=== PATIENT | female | born 1995 | race Caucasian/White ===

== ENCOUNTER 2020-11-20 14:51 | Emergency (ER) | payer MEDICAID, SELFPAY ==
[2020-11-20 15:26] VITALS: BP 115/74; PULSE 88; RESP 18; TEMP 36.8; O2SAT 98; BMI 21.9
[2020-11-20 19:11] LABS: MANUAL DIFF FLAG NO
[2020-11-20 19:13] LABS: Basophils Percent Auto 0.4 % (0-2); Eosinophils Absolute Auto 0.1 X10*3/uL (0.0-0.4); Eosinophils Percent Auto 0.9 % (0-4); Hematocrit 35.4 % (37-47); Hemoglobin 11.2 g/dl (12.0-16.0); Imm Gran Abs Auto 0.03 X10*3/uL (0.00-0.03); Imm Gran Pct Auto 0.4 % (0.0-0.4); Lymphocytes Absolute Auto 1.9 X10*3/uL (1.2-4.9); Lymphocytes Percent Auto 23.8 % (20-40); Mean Corpuscular HGB Conc 31.6 g/dl (31.0-35.0); Mean Corpuscular Hemoglobin 25.1 pg (27.0-33.0); Mean Corpuscular Volume 79.2 fL (80-98); Monocytes Absolute Auto 0.6 X10*3/uL (0.1-1.2); Neutrophils Absolute Auto 5.4 X10*3/uL (2.0-8.3); Neutrophils Percent Auto 67.5 % (45-73); Platelet Count 255 X10*3/uL (160-400); Red Blood Count 4.47 X10*6/uL (4.20-5.50); Red Cell Distribution Width 14.6 % (11.0-16.0)
[2020-11-20 19:30] LABS: UPreg QC Valid YES; Urine Pregnancy NEGATIVE (NEGATIVE)
[2020-11-20 19:40] LABS: Anion Gap 13 (12-20); Blood Urea Nitrogen 15 mg/dL (9-16); Calcium 9.2 mg/dL (8.4-10.2); Carbon Dioxide 23 mmol/L (22-29); Chloride 108 mmol/L (96-108); Creatinine Clr Calc Pharmacy 90.3; Estimated Glomerular Filt Rate > 60; Glucose Random 104 mg/dL (60-115); Potassium 4.1 mmol/l (3.3-5.1); Sodium 140 mmol/L (135-145)
--- NOTE | 2020-11-20 21:01 | CT_ITS ---
EXAMINATION: CT HEAD WITHOUT CONTRAST CLINICAL INFORMATION: Severe headache. COMPARISON: None. TECHNIQUE: Contiguous axial imaging was performed from the skull base to vertex without intravenous administration of contrast. Coronal and sagittal reformatted images are performed at the CT scanner. [This CT examination was performed using dose optimization techniques as appropriate, variously including the following: *Automated exposure control *Adjustment of mA and/or kV according to patient size (this includes techniques or standardized protocols for targeted exams where dose is matched to indication/reason for exam; i.e. extremities or head) *Use of iterative reconstruction technique] DLP: 624 mGy-cm. FINDINGS: There is no evidence of acute intracranial hemorrhage or territorial infarction. No abnormal mass-effect or midline shift is seen. Isaac to white matter differentiation is well preserved. No extra-axial fluid collections are identified. The ventricles are normal in size. There is no abnormal attenuation within the brain parenchyma. There is no osseous abnormality. The mastoid air cells and visualized portions of the paranasal sinuses are well-aerated. CT/CT head/brain wo con IMPRESSION: No acute intracranial pathology.
--- NOTE | 2020-11-20 21:03 | ED.HA ---
HPI - Headache General Chief Complaint: Headache Stated Complaint: HEADACHE Time Seen by Provider: 11/20/20 20:46 Source: patient Mode of arrival: ambulatory Limitations: no limitations History of Present Illness HPI Narrative: 25 yo female here with MENEZES, nausea, photophobia x 8 days. H/o migraines but this feels more severe unrelieved with Excedrin and Tylenol at home. Patient initially told nursing that she had an abnormal CT in the past however, she tells me that she had an abnormal EEG outpatient and was recommended to f/u with neurology in 6 months but did not due to covid. MD elicited complaint: headache Related Data Previous Rx's Medication Instructions Recorded vezynfvzei-yllnwbnvhwcmj-vgty 1 cap PO Q8H PRN #10 cap 11/20/20 [Fioricet] Allergies Allergy/AdvReac Type Severity Reaction Status Date / Time loratadine [From CLARITIN] Allergy Intermediate RASH Verified 11/20/20 15:26 almond Allergy Unknown SWELLING Verified 11/20/20 15:26 corn [CORN] Allergy Unknown SWELLING Verified 11/20/20 15:26 hazelnut Allergy Unknown SWELLING Verified 11/20/20 15:26 latex [LATEX] Allergy Unknown RASH Verified 11/20/20 15:26 Review of Systems Review of Systems: Yes all other systems are reviewed and are negative Constitutional: Constitutional: Reports no additional constitutional complaints, Denies body ache(s), Denies chills, Denies fever(s), Reports headache(s) and Denies weakness Eyes: Eyes: Reports no additional eye complaints, Denies change in vision and Reports photophobia ENT: Reports system reviewed and no additional complaints, except as documented, Denies dizziness, Reports headache(s), Denies nasal congestion, Denies nasal discharge and Denies neck pain Cardiovascular: Cardiovascular: Reports no additional cardiovascular complaints, Denies chest pain, Denies leg edema and Denies dyspnea Respiratory: Respiratory: Reports no additional respiratory complaints, Denies cough and Denies dyspnea Gastrointestinal: Gastrointestinal: Reports no additional gastrointestinal complaints, Denies abdominal pain, Denies diarrhea, Reports nausea and Denies vomiting Genitourinary: Genitourinary: Reports no additional female genitourinary complaints and Denies urinary incontinence Musculoskeletal: Musculoskeletal: Reports no additional musculoskeletal complaints, Denies back pain, Denies arthralgias, Denies joint swelling, Denies neck pain, Denies numbness and Denies tingling Integumentary/Breasts: Skin/Breast: Reports system reviewed and no additional complaints, except as docu and Denies rash Neurologic: Reports system reviewed and no additional complaints, except as documented, Denies Abnormal speech present, Denies dizziness, Reports headache(s), Denies numbness, Denies tingling and Denies weakness PMFSH Past Medical History Attestation statement: The following information was validated with the patient. Source: old records reviewed and nursing notes reviewed Medical History Migraines Surgical History Hx of tonsillectomy Social History Social History Alcohol intake: unknown Smoking Status: Unknown if ever smoked Use of substances other than those prescribed or required for medical reasons: No Advance Directives: No Advance Directives Information Provided: No Physical Exam Vital Signs: Vital Signs: Last Vital Signs Temp 98.2 F 11/20/20 21:32 Pulse 57 11/20/20 21:35 Resp 16 11/20/20 21:35 BP 114/65 11/20/20 21:35 Pulse Ox 98 11/20/20 21:32 Body Mass Index 21.9 Const: General: cooperative, healthy appearing, comfortable and no acute distress Orientation/consciousness: patient oriented x3 Limitations: no limitations HENMT: Head: Yes normal to inspection Ears: hearing grossly normal bilaterally General nose exam: Normal external nose present Face and sinus: Yes normal facial exam Mouth: Normal oral and palatal mucosa present Throat: Yes posterior oropharynx normal Eyes: General: appearance normal, both eyes and all related structures Pupils: Equal, round and reactive pupils present Direct Ophthalmoscopy: photophobia Neck: Neck: Yes normal visual inspection Chest: Chest palpation & inspection: normal inspection of the chest Resp: Effort & Inspection: normal respiratory effort Auscultation: clear to auscultation bilaterally Cardio: Rate: regular rate Rhythm: regular rhythm Peripheral pulses: Peripheral pulses 2+ throughout GI: Inspection: Yes normal to inspection Palpation (GI): Soft to palpation and nontender Auscultation: normal bowel sounds Back/Spine/Pelvis: Thoracic/Lumbar Spine: thoracic and lumbar spine normal to inspection Skin: General skin exam: no rashes or lesions noted Neuro: General: patient oriented x3, no focal motor deficits and normal sensation to monofilament Cranial nerves: Yes CN's II-XII intact bilaterally, Yes Equal, round and reactive pupils present, Yes Bilaterally intact EOM present, Yes Nystagmus not present, Yes Normal facial strength present and Yes Midline tongue present Cognition (Neuro): normal cognition Speech: No Abnormal speech present Gait exam (Neuro): Normal gait present Motor exam (neuro): 5/5 motor strength present throughout Sensory Exam: Normal double simultaneous stimulation for sensation Extrem: General: Yes normal to inspection NIH Stroke Scale Internal: Initial- Upon Arrival Level of Consciousness: Alert Level of Consciousness Questions: Answers both questions correctly Level of Consciousness Commands: Performs both tasks correctly Best Gaze: Normal Visual: No visual loss Facial Palsy: Normal Motor Arm (Right): No drift Motor Arm (Left): No drift Motor Leg (Right): No drift Motor Leg (Left): No drift Limb Ataxia: Absent Sensory: Normal Best Language: No aphasia Dysarthia: Normal Extinction and Inattention: No abnormality Score: 0 Course Course Course Narrative: Intractable migraine x 8 days unrelieved with eugu-vso-wjwhwxp medications. Will need PRN, NSB and analgesia, CT head. 0020-CT head negative. Patient's pain is resolved after receiving IV medications here. Likely migraine. Reviewed worrisome signs and symptoms of when to return to the emergency department. Comfortable discharge home. MDM - Headache Medical Records Attestation: I reviewed the patient's medical records. Lab Data Attestation: I reviewed the patient's lab results. Result diagrams: 11/20/20 19:06 11/20/20 19:06 Labs: Lab Results 11/20/20 11/20/20 11/20/20 Range/Units 19:06 19:06 19:18 WBC 8.0 (4.8-10.8) X10*3/uL RBC 4.47 (4.20-5.50) X10*6/uL Hgb 11.2 L (12.0-16.0) g/dl Hct 35.4 L (37-47) % MCV 79.2 L (80-98) fL MCH 25.1 L (27.0-33.0) pg MCHC 31.6 (31.0-35.0) g/dl RDW 14.6 (11.0-16.0) % Plt Count 255 (160-400) X10*3/uL MPV 11.0 (9.4-12.3) fL Immature Gran % (Auto) 0.4 (0.0-0.4) % Neut % (Auto) 67.5 (45-73) % Lymph % (Auto) 23.8 (20-40) % [place] % (Auto) 7.0 (2-11) % Eos % (Auto) 0.9 (0-4) % Baso % (Auto) 0.4 (0-2) % Lymph # (Auto) 1.9 (1.2-4.9) X10*3/uL [place] # (Auto) 0.6 (0.1-1.2) X10*3/uL Eos # (Auto) 0.1 (0.0-0.4) X10*3/uL Baso # (Auto) 0.0 (0.0-0.2) X10*3/uL Abs Immat Gran (auto) 0.03 (0.00-0.03) X10*3/uL Absolute Neuts (auto) 5.4 (2.0-8.3) X10*3/uL Absolute Nucleated RBC 0.000 (0.0-0.012) X10*3/uL Nucleated RBC % (auto) 0.0 (0.0-0.2) /100WBC Sodium 140 (135-145) mmol/L Potassium 4.1 (3.3-5.1) mmol/l Chloride 108 (96-108) mmol/L Carbon Dioxide 23 (22-29) mmol/L Anion Gap 13 (12-20) BUN 15 (9-16) mg/dL Creatinine 0.74 (0.5-1.4) mg/dL Estim Creat Clear Calc 90.3 Estimated GFR > 60 Random Glucose 104 (60-115) mg/dL Calcium 9.2 (8.4-10.2) mg/dL TSH 3.92 (0.32-4.0) uIU/mL Urine Test NEGATIVE (NEGATIVE) Imaging Data CT scan - head: Attestation: I personally reviewed and interpreted this imaging study as follows: Radiologist's impression: CLINICAL INFORMATION: Severe headache. COMPARISON: None. TECHNIQUE: Contiguous axial imaging was performed from the skull base to vertex without intravenous administration of contrast. Coronal and sagittal reformatted images are performed at the CT scanner. [This CT examination was performed using dose optimization techniques as appropriate, variously including the following: *Automated exposure control *Adjustment of mA and/or kV according to patient size (this includes techniques or standardized protocols for targeted exams where dose is matched to indication/reason for exam; i.e. extremities or head) *Use of iterative reconstruction technique] DLP: 624 mGy-cm. FINDINGS: There is no evidence of acute intracranial hemorrhage or territorial infarction. No abnormal mass-effect or midline shift is seen. Isaac to white matter differentiation is well preserved. No extra-axial fluid collections are identified. The ventricles are normal in size. There is no abnormal attenuation within the brain parenchyma. There is no osseous abnormality. The mastoid air cells and visualized portions of the paranasal sinuses are well-aerated. CT/CT head/brain wo con IMPRESSION: No acute intracranial pathology. Discharge Plan Discharge Clinical Impression: Migraine Patient Disposition: Home, Self-Care Instructions: Migraine Headache (ED) Additional Instructions: We will call you if her swabs come back positive Get plenty of rest, avoid stress, drink plenty of fluids Prescriptions: New sfvmipfrdu-tnwkjcclysoxg-vxwt [Fioricet] 50-300-40 mg capsule 1 cap PO Q8H PRN (Reason: pain) Qty: 10 RF: 0 Referrals: [facility] [Primary Care Provider] - 2 days Interventions: ED Discharge Assessment Last Done: 11/20/20 23:36 Discharge Date/Time: 11/20/20 23:36
[2020-11-20] MEDS: diphenhydrAMINE HCL 50 MG/ML VIAL 25 MG IVPUSH (21:28)
[2020-11-20] MEDS: Metoclopramide HCl 10 MG/2 ML VIAL IVPUSH (21:29)
[2020-11-20] MEDS: 0.9 % Sodium Chloride 1,000 ML 999 ML IV (21:29)
[2020-11-20 21:32] VITALS: BP 115/74; PULSE 88; RESP 18; TEMP 36.8; O2SAT 98
--- NOTE | 2020-11-20 21:32 | PC.NURSE ---
Pt found laying in bed, reporting 8/10 pain to front right side of head, history of migraines, pt also reporting nausea and light sensitivity. IV established, IVF hung, pt medicated per MAR. Pt asking to be evaluated for a possible BV, yeast infection or UTI. Pt reports frequent episodes of BV, states she has had a vaginal discharge for 3 weeks, described as milky white with a strong odor. Pt also reports burning with urination, states that discharge zepeda. Primary nurse aware. Continue to monitor.
[2020-11-20 21:35] VITALS: BP 114/65; PULSE 57; RESP 16
--- NOTE | 2020-11-20 21:41 | PC.NURSE ---
Provider aware, plan for pt to self swab for BV and provide urine for STI. Pt unable to provide urine sample at this time. IVF infusing, per pt, she will try in a little while.
[2020-11-20 21:59] LABS: Thyroid Stimulating Hormone 3.92 uIU/mL (0.32-4.0)
[2020-11-21 08:52] LABS: BV Int Neg Control Negative (Negative); BV Int Pos Control Positive (Positive)
[2020-11-21 09:29] LABS: CT PCR NOT DETECTED (Not Detect.); NG PCR NOT DETECTED (Not Detect.)
== END 2020-11-20 23:36 | disposition home or self-care (01) ==
PROVIDERS: Nurse Practitioner Family; Emergency Provider Emergency Medicine Emergency Medical Services
DX: G43.909 Migraine, unspecified, not intractable, without status migrainosus (principal); Z11.3 Encounter for screening for infections with a predominantly sexual mode of transmission
CPT/HCPCS: 36415; 70450; 80048; 81025; 84443; 85025; 87480; 87491; 87510; 87591; 87660; 96361; 96374; 96375; 99284; J1200; J2765

== ENCOUNTER 2021-03-05 10:17 | Outpatient (REF) | payer MEDICAID, SELFPAY ==
--- NOTE | ~2021-03-05 | US_ITS ---
EXAMINATION: US THYROID CLINICAL INFORMATION: History of thyroid nodules. COMPARISON: Thyroid ultrasound 09/30/2014 and 08/11/2012 TECHNIQUE: Linear transducer abarca-scale and color Doppler examination with attention to the region of the thyroid. FINDINGS: SIZE: Measurements of the thyroid lobes and nodules are given in sagittal, anteroposterior and transverse dimensions respectively. Right Thyroid Lobe: 4.8 x 1.9 x 1.9 cm, volume 9.1 mL. Previously 4.2 x 1.8 x 1.3 cm, volume 5.1 mL. Parenchyma: The gland echotexture is heterogeneous. Thyroid vascularity is increased. Left Thyroid Lobe: 4.2 x 1.9 x 1.6 cm, volume 6.7 mL. Previously 4.1 x 1.7 x 1.5 cm, volume 5.5 mL. Parenchyma: The gland echotexture is heterogeneous. Thyroid vascularity is increased. Isthmus: 0.3 cm in maximum AP dimension. Previously 0.3 cm. No focal thyroid nodule is seen. NODES: No lymphadenopathy is seen in the tissue surrounding the thyroid gland. US/US thyroid IMPRESSION: Heterogenous thyroid gland with no visible or measurable nodules visualized. The gland has slightly increased in volume since the previous exam 09/30/2014. ACR TI-RADS RECOMMENDATION REFERENCE: Ultrasound-guided fine-needle aspiration, followup ultrasound, no further followup. * TR1 (0 point) and TR 2 (2 points): No FNA or followup. * TR3 (3 points): FNA if more than or equal to 2.5 cm in maximum dimension, followup ultrasound in 1, 3 and 5 years if 1.5 to 2.4 cm in maximum dimension. * TR4 (4-6 points): FNA if more than or equal to 1.5 cm in maximum dimension, followup ultrasound in 1, 2, 3 and 5 years if 1 to 1.4 cm in maximum dimension. * TR5 (more than or equal to 7 points): FNA if more than or equal to 1 cm in maximum dimension, followup ultrasound every year for 5 years if 0.5 to 0.9 cm in maximum dimension. * TR3, TR4 or TR5 nodules that are below the size threshold for followup receive no followup.
== END 2021-03-05 10:18 | disposition home or self-care (01) ==
LOC: HO.US 10:17
PROVIDERS: PCP Nurse Practitioner Family; Visit Provider Nurse Practitioner Family
DX: Z86.39 Personal history of other endocrine, nutritional and metabolic disease (principal)
CPT/HCPCS: 76536

== ENCOUNTER 2021-05-30 13:29 | Outpatient (REF) | payer MEDICAID, SELFPAY ==
--- NOTE | ~2021-05-30 | US_ITS ---
EXAMINATION: US SOFT TISSUE NECK CLINICAL INFORMATION: 26-year-old female with submental palpable nodule for approximately 3 weeks. COMPARISON: Thyroid ultrasound 03/05/2021. TECHNIQUE: Ultrasound of the soft tissue neck is targeted to the area of clinical concern corresponding to the midline submental region. Patient is able to point to the area of concern at time of imaging. Grayscale imaging and color Doppler are performed. FINDINGS: The palpable nodule corresponds to a submental node with normal kiley architecture and normal color flow. The node measures approximately 4 mm short axis and 8 mm long axis. There is no other cystic or solid mass. No skin thickening or edema tracking in soft tissue planes. The submental node is similar to thyroid ultrasound images from 03/05/2021. No interval enlargement. US/US soft tiss head and/or neck IMPRESSION: Benign-appearing submental node with normal kiley architecture and color flow measuring approximately 4 mm short axis by 8 mm long axis. Finding is similar to prior thyroid ultrasound exam images 03/05/2021.
== END 2021-05-30 13:30 | disposition home or self-care (01) ==
LOC: HO.US 13:29
PROVIDERS: Visit Provider Nurse Practitioner Family
DX: R59.0 Localized enlarged lymph nodes (principal)
CPT/HCPCS: 76536

== ENCOUNTER 2022-03-15 10:29 | Emergency (ER) | payer MEDICAID, SELFPAY ==
--- NOTE | ~2022-03-15 | XR_ITS ---
EXAMINATION: XR RIBS, LEFT CLINICAL INFORMATION: Fell 3 weeks ago with persistent pain on the left side. COMPARISON: 08/29/2017. TECHNIQUE: 3 views of the left ribs were obtained. FINDINGS: Lungs are clear. No consolidation, pneumothorax, or pleural effusion. The cardiomediastinal silhouette and pulmonary vasculature are normal. Osseous structures are unremarkable. Ribs are intact. No fractures are identified. XR/XR ribs LT min 3V w CXR1V IMPRESSION: Unremarkable examination.
[2022-03-15 10:42] VITALS: BP 106/64; PULSE 70; RESP 14; TEMP 36.6; O2SAT 100; BMI 22.1
[2022-03-15] MEDS: Cyclobenzaprine HCl 10 MG TABLET PO (11:36)
[2022-03-15] MEDS: NaPROXEN 500 MG TABLET PO (11:36)
--- NOTE | 2022-03-15 11:37 | ED_ITS ---
HPI - Fall General Chief Complaint: General Medical Stated Complaint: L side rib pain Time Seen by Provider: 03/15/22 11:10 Source: patient and family Mode of arrival: ambulatory Limitations: no limitations History of Present Illness MD complaint: fall Onset (ago): week(s) (3) Fall from: other (While she was on a boat/snorkeling) Fall witnessed: yes, by family and yes, by bystander Place fall occurred: other (Outdoors) Loss of consciousness: none Prolonged down time: no Symptoms prior to fall: none Context: tripped/slipped Location of injury: chest (left rib cage ) Severity: moderate Quality: aching and throbbing Associated symptoms (after fall): other (left rib cage lateral aspect ) Related Data Previous Rx's Medication Instructions Recorded gbvqnlmqau-pgabdiwevsaaa-paqiuidh 1 cap PO Q8H PRN #10 cap 11/20/20 50 mg-300 mg-40 mg capsule (Fioricet) cyclobenzaprine 10 mg tablet 10 mg PO Q8H PRN #14 tab 03/15/22 lidocaine HCl 4 % topical cream 1 appl TOPICAL BID PRN #120 g 03/15/22 (Aspercreme (lidocaine HCl)) naproxen 500 mg tablet 500 mg PO BID PRN #14 tab 03/15/22 Allergies Allergy/AdvReac Type Severity Reaction Status Date / Time loratadine [From CLARITIN] Allergy Intermediate RASH Verified 03/15/22 10:46 almond Allergy Unknown SWELLING Verified 03/15/22 10:46 corn [CORN] Allergy Unknown SWELLING Verified 03/15/22 10:46 hazelnut Allergy Unknown SWELLING Verified 03/15/22 10:46 latex [LATEX] Allergy Unknown RASH Verified 03/15/22 10:46 Review of Systems Review of Systems: Constitutional : No Weight loss, No Fever, No Chills, No Night Sweats, No Fatigue, No Malaise ENT/Mouth : No Hearing loss, No Ear Pain, No Nasal Congestion, No Sinus Pain, No Hoarseness, No sore throat, No Rhinorrhea, No Swallowing Difficulty Eyes: No Eye Pain, No Swelling, No Redness, No Foreign Body, No Discharge, No Vision Changes Cardiovascular : No Chest Pain, No SOB, No Dyspnea on Exertion, No Orthopnea, No Edema, No Palpitations Respiratory : No Cough, No Sputum, No Wheezing, No Smoke Exposure, No Dyspnea Gastrointestinal : No Nausea, No Vomiting, No Diarrhea, No Constipation, No abdominal Pain, No Hematochezia, No Melena Genitourinary : no irregular bleeding, No Dysuria, No Urinary Frequency, No Hematuria, No Urinary Incontinence, No Urgency, No Flank Pain, No Urinary Flow Changes, No Hesitancy Musculoskeletal : + left rib cage pain, No joint pain, No Myalgias, No Joint Swelling Skin : No Skin Lesions, No rash Neuro : No Weakness, No Numbness, No Paresthesias, No Loss of Consciousness, No Dizziness, No Headache Psych : No Anxiety/Panic, No Depression, No SI/HI/AH/VH, No Social Issues, Heme/Lymph: No Bruising, No Bleeding,No Lymphadenopathy Endocrine : No Polyuria, No Polydipsia, No Temperature Intolerance Yes all other systems are reviewed and are negative [facility] Past Medical History Attestation statement: The following information was validated with the patient. Medical History Migraines Surgical History Hx of tonsillectomy Social History Social History Alcohol intake: unknown Advance Directives: No Advance Directives Information Provided: No Physical Exam Vital Signs: Vital Signs: Last Vital Signs Temp 97.9 F 03/15/22 10:42 Pulse 70 03/15/22 10:42 Resp 14 03/15/22 10:42 BP 106/64 03/15/22 10:42 Pulse Ox 100 03/15/22 10:42 BMI result Body Mass Index 22.1 vital signs have been reviewed as normal and appeared to be correct. Blood pressure normal. Heart rate normal. Respiration rate normal. Temperature normal. Oxygen saturation normal. Appearance: Alert. Oriented X3. No acute distress. Head: Normal external exam. Normocephalic. Atraumatic. Eyes: PERRLA. EOMI. Conjunctiva and sclera normal. Eyelids normal. ENT: Pharynx normal. Uvula midline. Moist mucous membranes. Normal voice. No trismus noted. No drooling noted. No muffled voice noted. Neck: Normal inspection. Neck supple. FROM. No adenopathy. Thyroid Normal. No meningeal signs. CVS: Normal heart rate and rhythm. Heart sound normal. Pulses normal throughout. No murmurs/rales/gallops. Respiratory: No respiratory distress. Painless inspiration. Breath sounds normal. No wheezes/rales/rhonchi noted. Chest moderate tenderness palpation to the left lateral aspect of the rib cage. No ecchymosis/abrasions/lacerations or signs of trauma noted. No crepitus is noted. No signs of trauma noted. No accessory muscle usage noted or decreased air movement noted. No signs of trauma. Abdomen: Soft and nontender. Bowel sounds normal in all 4 quadrants. No distention noted. No organomegaly noted. No visible injury noted. Back: Full range of motion noted. Nontender. No signs of trauma. Patient neuro intact bilaterally and distally on all 4 extremities. Patient's reflexes intact bilaterally and distally on all 4 extremities. No rashes/lesion/induration/fluctuance or signs of infection noted. Skin: Skin warm and dry. Normal skin color. Normal skin turgor. No rashes/lesions/lacerations noted. Extremities:Extremities exhibit normal range of motion and nontender. Neuro: Oriented X 3. No motor deficit. No sensory deficit. Reflexes normal. Normal steady gait. No focal neuro deficits noted. CN's II-XII intact bilaterally? Vascular: + radial pulses/+ 2 distal pedal pulses/+2 dorsalis pedis b/l. Normal cap refill. No cyanosis noted to upper extremity nails and lower extremity toes nails. Course Course Course Narrative: 11:15am - 26-year-old female presenting to the ED with complaints of left lateral rib cage pain after she had a fall when she was snorkeling approximately 3 weeks with persistent pain to the left lateral ribcage worse with deep inspiration and palpation. Denies head injury loss of consciousness or being on any blood thinners. Denies any other symptoms related to this. Will obtain a rib cage x-ray and provide symptomatic treatment with naproxen muscle relaxer and re-evaluate. Reevaluation(s) Reevaluation #1: X-ray negative patient most likely muscle strain will DC home with muscle relaxant instructions to return if any new or worsening symptoms to follow up with primary care provider. Patient understands agrees with this plan. MDM - Fall Medical Records Attestation: I reviewed the patient's medical records. Imaging Data ribs left sided and PA chest: Attestation: I personally reviewed and interpreted this imaging study as follows: Radiologist's impression: FINDINGS: Lungs are clear. No consolidation, pneumothorax, or pleural effusion. The cardiomediastinal silhouette and pulmonary vasculature are normal. Osseous structures are unremarkable. Ribs are intact. No fractures are identified. XR/XR ribs LT min 3V w CXR1V IMPRESSION: Unremarkable examination. Discharge Plan Discharge Clinical Impression: Fall, Rib injury Patient Disposition: Home, Self-Care Instructions: Muscle Strain (ED) Prescriptions: New naproxen 500 mg tablet 500 mg PO BID PRN (Reason: pain) Qty: 14 0RF cyclobenzaprine 10 mg tablet 10 mg PO Q8H PRN (Reason: Muscle spasm) Qty: 14 0RF lidocaine HCl [Aspercreme (lidocaine HCl)] 4 % cream 1 appl topical BID PRN (Reason: pain) Qty: 120 0RF No Action hoskxvcool-pmeeemwgaddxc-whyk [Fioricet] 50-300-40 mg capsule 1 cap PO Q8H PRN (Reason: pain) Qty: 10 0RF Referrals: Roseline Hooker [Primary Care Provider] - 2 days Stand Alone Forms: Work/School Release Print Language: Persian
== END 2022-03-15 12:04 | disposition home or self-care (01) ==
PROVIDERS: Emergency Provider Emergency Medicine Emergency Medical Services; PCP Nurse Practitioner
DX: S29.9XXA Unspecified injury of thorax, initial encounter (principal); W17.89XA Other fall from one level to another, initial encounter; Y93.15 Activity, underwater diving and snorkeling; Y92.89 Other specified places as the place of occurrence of the external cause; Y99.9 Unspecified external cause status
CPT/HCPCS: 71101; 99283

== ENCOUNTER 2022-06-26 08:50 | Emergency (ER) | payer MEDICAID, SELFPAY ==
[2022-06-26 08:59] VITALS: BP 122/68; PULSE 77; RESP 18; TEMP 37.1; O2SAT 98; BMI 21.5
--- NOTE | 2022-06-26 09:51 | ED.EXTPRO ---
HPI - Extremity Problem General Chief complaint: Extremity Problem Stated complaint: L & R knee swollen, cant bend L Time Seen by Provider: 06/26/22 09:32 Source: patient Mode of arrival: ambulatory Limitations: no limitations History of Present Illness HPI Narrative: 27-year-old female with a past medical history of iron deficiency anemia presenting to the emergency department with pain and swelling of her left knee for the past 2 days. Patient reports that she also had pain and swelling of the right knee on Friday, which has since resolved. States she cannot bend her left knee because it feels like its going to crack , and states it feels numb and tingly . Patient does report she is able to ambulate with a limp . Has tried ice and Tylenol for pain with little relief. States nothing like this has ever happened before . Does work on her feet all day, however denies any recent changes in activity level. Denies any trauma or mechanism of injury to the knee, denies any prior knee injury. Denies any issue with any other joints, however states her fingers often get stuck on bilateral hands. Denies any fevers, nausea, vomiting, chest pain, shortness of breath, insect bites. Denies history of blood clots, history of gout, or recent travel. MD Complaint: joint swelling and joint pain Onset (ago): day(s) Pain Consistency: constant Location: left Quality: aching, dull and constant Radiation: none Exacerbating factors: range of motion, weight bearing, walking and palpation Associated symptoms: denies other symptoms Related Data Previous Rx's Medication Instructions Recorded koizqsywan-rqnvkhzgdhols-gpqfwwyw 1 cap PO Q8H PRN pain #10 caps 11/20/20 50 mg-300 mg-40 mg capsule (Fioricet) cyclobenzaprine 10 mg tablet 10 mg PO Q8H PRN Muscle spasm #14 03/15/22 tabs lidocaine HCl 4 % topical cream 1 appl topical BID PRN pain #120 03/15/22 (Aspercreme (lidocaine HCl)) grams naproxen 500 mg tablet 500 mg PO BID PRN pain #14 tabs 03/15/22 Allergies Allergy/AdvReac Type Severity Reaction Status Date / Time loratadine [From CLARITIN] Allergy Intermediate RASH Verified 03/15/22 10:46 almond Allergy Unknown SWELLING Verified 03/15/22 10:46 corn [CORN] Allergy Unknown SWELLING Verified 03/15/22 10:46 hazelnut Allergy Unknown SWELLING Verified 03/15/22 10:46 latex [LATEX] Allergy Unknown RASH Verified 03/15/22 10:46 Review of Systems Review of Systems: Constitutional: No Weight loss, No Fever, No Chills ENT/Mouth: No Ear Pain, No Nasal Congestion, No Sinus Pain, No Hoarseness, No sore throat, No Rhinorrhea, No Swallowing Difficulty Cardiovascular: No Chest Pain, No SOB Respiratory: No Cough, No Sputum, No Wheezing Gastrointestinal: No Nausea, No Vomiting, No Diarrhea, No Constipation, No Abdominal pain Genitourinary: No Dysuria, No Urinary Frequency, No Hematuria, No Urinary Incontinence/retention, No Urgency, No Flank Pain Musculoskeletal: + joint pain left knee, No Myalgias, + Joint Swelling left knee Skin: No Skin Lesions, No rash Neuro: No Weakness, No Numbness, No Paresthesias Yes all other systems are reviewed and are negative Constitutional: Constitutional: Reports as per [facility] Past Medical History Attestation statement: The following information was validated with the patient. Medical History Migraines Surgical History Hx of tonsillectomy Social History Social History Alcohol intake: unknown Advance Directives: No Advance Directives Information Provided: No Physical Exam Vital Signs: Vital Signs: Last Vital Signs Temp 98.7 F 06/26/22 08:59 Pulse 77 06/26/22 08:59 Resp 18 06/26/22 08:59 BP 122/68 06/26/22 08:59 Pulse Ox 98 06/26/22 08:59 O2 Del Method 06/26/22 08:59 BMI result Body Mass Index 21.5 Const: General: cooperative, healthy appearing and no acute distress Orientation/consciousness: patient oriented x3 Limitations: no limitations HEENT: Head: Yes normal to inspection and Yes atraumatic Ears: hearing grossly normal bilaterally General nose exam: Normal external nose present Face and sinus: Yes normal facial exam Eyes: General: appearance normal, both eyes and all related structures EOM: EOMs intact bilaterally Neck: Neck: Yes normal visual inspection and Yes no meningeal signs Resp: Effort & Inspection: normal respiratory effort and no respiratory distress Auscultation: clear to auscultation bilaterally Cardio: Rate: regular rate Heart sounds: S1 normal heart sound present and S2 normal heart sound present Skin: Rashes: no rashes Wounds: no wounds Neuro: General: patient oriented x3, tone normal and no meningeal signs Gait exam (Neuro): Normal gait present Extrem: Other: NV intact distally Right lower extremity: normal to inspection and full ROM Left lower extremity: knee Details: tenderness, swelling and abnormal ROM (mild decreased flexion 2/2 pain) Course Course Course Narrative: 10:43 patient eloped prior to XR's being taken MDM - Extremity (Nontraumatic) MDM Narrative Medical decision making narrative: 27-year-old female with a past medical history of iron deficiency anemia presenting to the emergency department with pain and swelling of her left knee for the past 2 days. On exam, vital signs stable, patient in no acute distress. Left knee mildly edematous, no erythema, ecchymosis, or warmth noted. Range of motion limited due to pain, diffusely tender to palpation. Patient is able to ambulate with antalgic gait. Right knee with no edema, ecchymosis, or warmth noted on exam, full range of motion noted, no tenderness to palpation. No calf pain or swelling. Bilateral XR of knees ordered. Suspicion for possible tendon/ligamentous injury. Low suspicion for septic joint and DVT at this time. Medical Records Attestation: I reviewed the patient's medical records. Lab Data Attestation: I reviewed the patient's lab results. Discharge Plan Discharge Clinical Impression: Knee pain, left Patient Disposition: Elopement Prescriptions: No Action wydnjqgchw-qcdlwmztqtocg-cwbx [Fioricet] 50-300-40 mg capsule 1 cap PO Q8H PRN (Reason: pain) Qty: 10 0RF naproxen 500 mg tablet 500 mg PO BID PRN (Reason: pain) Qty: 14 0RF cyclobenzaprine 10 mg tablet 10 mg PO Q8H PRN (Reason: Muscle spasm) Qty: 14 0RF lidocaine HCl [Aspercreme (lidocaine HCl)] 4 % cream 1 appl topical BID PRN (Reason: pain) Qty: 120 0RF
== END 2022-06-26 11:19 | disposition left against medical advice (07) ==
PROVIDERS: Emergency Provider Emergency Medicine; PCP Nurse Practitioner
DX: M25.562 Pain in left knee (principal); D64.9 Anemia, unspecified; Z79.899 Other long term (current) drug therapy
CPT/HCPCS: 99283

== ENCOUNTER 2022-08-03 12:05 | Emergency (ER) | payer MEDICAID, SELFPAY ==
[2022-08-03 12:19] VITALS: BP 122/67; PULSE 86; RESP 20; TEMP 36.4; O2SAT 100; BMI 21.9
[2022-08-03 13:05] LABS: MANUAL DIFF FLAG NO
[2022-08-03 13:06] LABS: Basophils Percent Auto 0.7 % (0-2); Eosinophils Absolute Auto 0.1 X10*3/uL (0.0-0.4); Eosinophils Percent Auto 1.9 % (0-4); Hematocrit 32.3 % (37.0-47.0); Hemoglobin 10.1 g/dl (12.0-16.0); Lymphocytes Absolute Auto 1.7 X10*3/uL (1.2-4.9); Lymphocytes Percent Auto 41.1 % (20-40); Mean Corpuscular HGB Conc 31.3 g/dl (31.0-35.0); Mean Corpuscular Volume 73.6 fL (80.0-98.0); Mean Platelet Volume 9.9 fL (9.4-12.3); Monocytes Absolute Auto 0.4 X10*3/uL (0.1-1.2); Monocytes Percent Auto 9.9 % (2-11); Neutrophils Percent Auto 46.4 % (45-73); Platelet Count 255 X10*3/uL (160-400); Red Blood Count 4.39 X10*6/uL (4.20-5.50); Red Cell Distribution Width 16.2 % (11.0-16.0); White Blood Count 4.2 X10*3/uL (4.8-10.8)
[2022-08-03 13:22] LABS: Alanine Aminotransferase 10 U/L (0-31); Albumin Level 4.7 g/dL (3.5-5.0); Alkaline Phosphatase 63 U/L (39-117); Anion Gap 14 (12-20); Aspartate Amino Transferase 19 U/L (5-31); Bilirubin Direct 0.2 mg/dL (0.0-0.5); Bilirubin Total 0.5 mg/dL (0.0-1.0); Blood Urea Nitrogen 17 mg/dL (9-16); C Reactive Protein 0.02 mg/dL (< or = 0.50); Calcium 9.4 mg/dL (8.4-10.2); Carbon Dioxide 24 mmol/L (22-29); Chloride 106 mmol/L (96-108); Creatinine Clr Calc Pharmacy 85.8; Estimated Glomerular Filt Rate > 60; Glucose Random 88 mg/dL (60-115); Lipase 8 U/L (8-78); Potassium 3.9 mmol/L (3.3-5.1); Sodium 140 mmol/L (135-145); Total Protein 7.8 g/dL (6.5-8.0)
[2022-08-03 13:42] LABS: Free T4 (Free Thyroxine) 1.23 ng/dL (0.71-1.85); TSH reflex Free T4 2.01 uIU/mL (0.32-4.0)
[2022-08-03 13:45] LABS: Erythrocyte Sedimentation Rate 14 MM/HR (0-20)
== END 2022-08-03 17:17 | disposition left against medical advice (07) ==
PROVIDERS: Emergency Provider Emergency Medicine
DX: R22.1 Localized swelling, mass and lump, neck (principal); R06.02 Shortness of breath
CPT/HCPCS: 36415; 80048; 80076; 83690; 84439; 84443; 85025; 85652; 86140; 99281; 99283

== ENCOUNTER 2023-08-29 11:20 | Outpatient (REF) | payer MEDICAID, SELFPAY ==
[2023-08-29 14:09] LABS: TSH reflex Free T4 4.58 uIU/mL (0.32-4.0)
[2023-08-29 14:39] LABS: Free T4 (Free Thyroxine) 0.94 ng/dL (0.71-1.85)
[2023-09-01 18:03] LABS: Thyroglobulin Antibodies >1000 IU/mL (< or = 1)
== END 2023-08-29 11:21 | disposition home or self-care (01) ==
LOC: HO.HHCL 11:20
PROVIDERS: Visit Provider Nurse Practitioner Primary Care
DX: E04.1 Nontoxic single thyroid nodule (principal)
CPT/HCPCS: 36415; 84439; 84443; 86800

== ENCOUNTER 2023-09-09 11:24 | Outpatient (REF) | payer MEDICAID, SELFPAY ==
--- NOTE | ~2023-09-09 | US_ITS ---
EXAMINATION: US THYROID CLINICAL INFORMATION: Nontoxic single thyroid nodule. COMPARISON: Ultrasound soft tissue neck 05/30/2021. Thyroid ultrasound 03/05/2021. TECHNIQUE: Linear transducer abarca-scale and color Doppler examination with attention to the region of the thyroid. FINDINGS: SIZE: Measurements of the thyroid lobes and nodules are given in sagittal, anteroposterior and transverse dimensions respectively. Right Thyroid Lobe: 4.5 x 2.3 x 2.2 cm, volume 11.9 mL. Previously 4.8 x 1.9 x 1.9 cm, volume 9.1 mL. Parenchyma: The gland echotexture is heterogeneous. Thyroid vascularity is increased. Left Thyroid Lobe: 4.3 x 2.3 x 1.8 cm, volume 9.3 mL. Previously 4.2 x 1.9 x 1.6 cm, volume 6.7 mL. Parenchyma: The gland echotexture is heterogeneous. Thyroid vascularity is increased. Isthmus: 0.4 cm in maximum AP dimension. Previously 0.3 cm. No focal thyroid nodule is seen. ADDITIONAL FINDINGS: There is a 1 x 0.3 x 0.8 cm solid hypoechoic lesion posterior to the mid right thyroid gland questionable for a parathyroid adenoma versus lymph node. NODES: There are multiple bilateral cervical lymph nodes. Larger lymph nodes are enlarged. Largest cervical lymph nodes are a right level 2 measuring 2 x 0.5 x 1.8 cm, right level 3 measuring 3 x 0.4 x 1 cm and right level 4 measuring 1.7 x 0.6 x 1 cm. Lymph nodes may be increased. US/US thyroid IMPRESSION: Enlarged heterogeneous hypervascular thyroid gland. Thyroid gland is slightly increased in size from 2020. No focal thyroid nodule. Multiple enlarged cervical lymph nodes. Question parathyroid adenoma versus lymph node posterior to the mid right lobe.
== END 2023-09-09 11:25 | disposition home or self-care (01) ==
LOC: HO.HMGCX 11:24
PROVIDERS: PCP Nurse Practitioner; Visit Provider Nurse Practitioner Primary Care
DX: E04.1 Nontoxic single thyroid nodule (principal); Z80.8 Family history of malignant neoplasm of other organs or systems
CPT/HCPCS: 76536

== ENCOUNTER 2023-11-07 10:59 | Outpatient (REF) | payer MEDICAID, SELFPAY ==
[2023-11-07 12:40] LABS: Parathyroid Hormone Intact 62.5 pg/mL (8.7-77.1)
[2023-11-07 12:45] LABS: Alanine Aminotransferase 16 U/L (0-31); Albumin Level 4.7 g/dL (3.5-5.0); Alkaline Phosphatase 58 U/L (39-117); Anion Gap 9 (12-20); Aspartate Amino Transferase 27 U/L (5-31); Bilirubin Total 0.3 mg/dL (0.0-1.0); Blood Urea Nitrogen 12 mg/dL (9-16); Calcium 9.4 mg/dL (8.4-10.2); Carbon Dioxide 27 mmol/L (22-29); Chloride 106 mmol/L (96-108); Estimated Glomerular Filt Rate > 60; Glucose Random 75 mg/dL (60-115); Potassium 3.7 mmol/L (3.3-5.1); Sodium 138 mmol/L (135-145); Total Protein 8.3 g/dL (6.5-8.0)
[2023-11-07 13:20] LABS: TSH reflex Free T4 > 100.00 uIU/mL (0.32-4.0)
[2023-11-07 14:31] LABS: Free T4 (Free Thyroxine) < 0.42 ng/dL (0.71-1.85)
== END 2023-11-07 11:00 | disposition home or self-care (01) ==
LOC: HO.HHCL 10:59
PROVIDERS: Nurse Practitioner; Visit Provider Internal Medicine
DX: E04.9 Nontoxic goiter, unspecified (principal); D35.1 Benign neoplasm of parathyroid gland
CPT/HCPCS: 36415; 80053; 82330; 83970; 84439; 84443

== ENCOUNTER 2023-12-09 09:50 | Outpatient (REF) | payer MEDICAID, SELFPAY ==
--- NOTE | ~2023-12-09 | FL_ITS ---
EX EXAMINATION: XR FLUOROSCOPY BARIUM SWALLOW CLINICAL INFORMATION: Dysphagia COMPARISON: None TECHNIQUE: Fluoroscopic air contrast upper GI examination was performed utilizing standard techniques with thin and thick barium and effervescent granules. Numerous spot images were obtained. FINDINGS: Lateral cine images of the oropharynx and hypopharynx demonstrate normal swallow mechanism with normal epiglottic inversion and soft palate elevation. There was trace laryngeal penetration with thick barium. This did not reach the true cords or subglottic region. No nasopharyngeal reflux present. Hypopharyngeal structures demonstrate no evidence of definitive mass or diverticulum. Hypopharynx mucosa appears slightly diffusely granular and irregular, which is most likely on the basis of prominent palatine and lingual tonsillar tissue. Recommend direct hypopharynx visualization. There was no significant cricopharyngeal achalasia. 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 This does not appear to be narrowing the UES to a significant degree. Otherwise, esophagus demonstrates normal caliber, contour, and mucosal pattern. No evidence of stricture, mass, or ulcerations identified. Esophageal peristalsis was normal. No evidence of hiatus hernia identified. No significant gastroesophageal reflux was seen during the course of the examination and on reflux views. Incidentally noted but incompletely evaluated or thickened rugal folds of the stomach, small hyperplastic polyps suspected in the fundus, and mild prominence of the areae gastricae. Findings suggest gastritis. FLUOROSCOPY TIME: 3.0 minutes Number of Spot Images: 3 Number of Cine: 6 DOSE AREA PRODUCT: 668.4 uGy-m2 (microgray-meter squared) FL/FL barium swallow IMPRESSION: 1. Trace laryngeal penetration with thick barium, without glottic or subglottic aspiration. 2. Only seen well on the true lateral projections, there is an incomplete ventral web in the region of the UES, not definitively causing significant caliber reduction of the esophageal inlet. 3. Incompletely evaluated stomach although findings suggesting gastritis. EGD may be of benefit in this patient, as well as input of a speech pathologist. 4. Mildly irregular appearance to the hypopharynx mucosa, most likely on the basis of palatine and lingual tonsillar hypertrophy. Recommend direct visualization. This procedure was performed by Warren Medley PA-C, and supervised by Dr. Kamara
== END 2023-12-09 09:51 | disposition home or self-care (01) ==
LOC: HO.XRAY 09:50
PROVIDERS: PCP Nurse Practitioner; Visit Provider Internal Medicine
DX: R13.19 Other dysphagia (principal)
CPT/HCPCS: 74220

== ENCOUNTER → 2023-12-09 09:51 | Outpatient (BNV) | payer MEDICAID, SELFPAY | PROVIDERS: PCP Nurse Practitioner; Visit Provider Radiology Diagnostic Radiology | DX: R13.10 Dysphagia, unspecified (principal) | CPT/HCPCS: 74221 ==

== ENCOUNTER 2023-12-12 15:35 | Outpatient (REF) | payer MEDICAID, SELFPAY ==
[2023-12-12 16:20] LABS: MANUAL DIFF FLAG NO
[2023-12-12 16:24] LABS: Basophils Absolute Auto 0.1 X10*3/uL (0.0-0.2); Basophils Percent Auto 0.8 % (0-2); Eosinophils Absolute Auto 0.1 X10*3/uL (0.0-0.4); Eosinophils Percent Auto 0.9 % (0-4); Hematocrit 32.2 % (37.0-47.0); Hemoglobin 10.2 g/dl (12.0-16.0); Imm Gran Abs Auto 0.02 X10*3/uL (0.00-0.03); Imm Gran Pct Auto 0.3 % (0.0-0.4); Lymphocytes Percent Auto 30.9 % (20-40); Mean Corpuscular HGB Conc 31.7 g/dl (31.0-35.0); Mean Corpuscular Hemoglobin 23.8 pg (27.0-33.0); Mean Corpuscular Volume 75.1 fL (80.0-98.0); Mean Platelet Volume 10.4 fL (9.4-12.3); Monocytes Absolute Auto 0.5 X10*3/uL (0.1-1.2); Monocytes Percent Auto 7.5 % (2-11); Neutrophils Absolute Auto 3.8 x10*3/uL (2.0-8.3); Neutrophils Percent Auto 59.6 % (45-73); Platelet Count 266 X10*3/uL (160-400); Red Blood Count 4.29 X10*6/uL (4.20-5.50); Red Cell Distribution Width 19.1 % (11.0-16.0); White Blood Count 6.4 X10*3/uL (4.8-10.8)
[2023-12-12 17:09] LABS: Iron 21 mcg/dL (30-160); Percent Iron Saturation 5 % (15-50); Total Iron Binding Capacity 410 mcg/dL (228-428); Unsaturated Iron Binding 389 ug/dL
[2023-12-12 17:27] LABS: Ferritin 7 ng/mL (10-122); TSH reflex Free T4 69.25 uIU/mL (0.32-4.0)
[2023-12-12 18:20] LABS: Free T4 (Free Thyroxine) 0.74 ng/dL (0.71-1.85)
[2023-12-16 03:34] LABS: HBS Num1 0.14 mIU/mL (0-7.99); HBc Num1 0.17 S/CO (0.00-0.79); HBsAGNum1 0.32 S/CO (0.00-0.99); HIV AB/AG Nonreactive (Nonreactive); HIV Num 1 0.07 S/CO (0.00-0.99); Hepatitis B Core Antibody Nonreactive (Nonreactive); Hepatitis B Surface Antigen Negative (Negative); ~HepC Num1 0.29 S/CO (0.00-0.79); ~Hepatitis B Surface Antibody NONREACTIVE (Nonreactive); ~Hepatitis C Antibody Nonreactive (Nonreactive)
== END 2023-12-12 15:36 | disposition home or self-care (01) ==
LOC: HO.HHCL 15:35
PROVIDERS: Visit Provider Nurse Practitioner
DX: E03.9 Hypothyroidism, unspecified (principal); D64.9 Anemia, unspecified; Z11.3 Encounter for screening for infections with a predominantly sexual mode of transmission
CPT/HCPCS: 36415; 82728; 83540; 84439; 84443; 85025; 86704; 86706; 86803; 87340; 87389

== ENCOUNTER 2023-12-31 14:54 | Outpatient (REF) | payer MEDICAID, SELFPAY | END 2023-12-31 14:55 | disposition home or self-care (01) | LOC: HO.HHCL 14:54 | PROVIDERS: Visit Provider Nurse Practitioner | DX: Z13.89 Encounter for screening for other disorder (principal) ==

== ENCOUNTER 2024-01-02 | Outpatient (REF) | payer MEDICAID, SELFPAY | END 2024-01-02 00:01 | disposition home or self-care (01) | LOC: HO.HHCL | PROVIDERS: Visit Provider Nurse Practitioner | DX: E03.9 Hypothyroidism, unspecified (principal) | CPT/HCPCS: 87338 ==

== ENCOUNTER 2024-01-21 10:12 | Outpatient (REF) | payer MEDICAID, SELFPAY | END 2024-01-21 10:13 | disposition home or self-care (01) | LOC: HO.XRAY 10:12 | PROVIDERS: Visit Provider Nurse Practitioner | DX: Z13.89 Encounter for screening for other disorder (principal) ==

== ENCOUNTER 2024-02-03 10:06 | Outpatient (REF) | payer MEDICAID, SELFPAY ==
[2024-02-03 14:15] LABS: TSH reflex Free T4 18.82 uIU/mL (0.32-4.0)
[2024-02-03 15:26] LABS: Free T4 (Free Thyroxine) 0.88 ng/dL (0.71-1.85)
== END 2024-02-03 10:07 | disposition home or self-care (01) ==
LOC: HO.HHCL 10:06
PROVIDERS: Visit Provider Nurse Practitioner
DX: E03.9 Hypothyroidism, unspecified (principal)
CPT/HCPCS: 36415; 84439; 84443

== ENCOUNTER 2024-03-10 13:20 | Outpatient (REF) | payer MEDICAID, SELFPAY ==
--- NOTE | ~2024-03-10 | FL_ITS ---
EXAMINATION: Modified Barium Swallow CLINICAL INFORMATION: Dysphagia COMPARISON: None TECHNIQUE: Modified barium swallow was performed under lateral fluoroscopy with patient in standing position. Barium mixed with solids and liquids of different consistencies was administered by the speech pathologist. Examination was recorded in the fluoroscopy suite. FINDINGS: No laryngeal penetration or aspiration was seen during this examination. FLUOROSCOPY TIME: 47 seconds Number of Spot Images: 1 DOSE AREA PRODUCT: 333 uGy-m2 (microgray-meter squared) FL/FL barium swallow modified IMPRESSION: No laryngeal penetration or aspiration was seen during this examination. Refer to the speech therapy report for further clarification This procedure was performed by Warren Medley PA-C, and supervised by Dr. Kamara
--- NOTE | 2024-03-18 15:45 | MHC.SL.IMP ---
Date of Plan of Treatment: 03/10/24 Onset of Symptoms/Illness: 09/24/23 Date Treatment Started: 03/10/24 Admitting Diagnosis: Pharyngeal dysphagia (R13.13) Primary Speech & Language Diagnosis: R13.10 Dysphagia Reason for Today's Visit: 99142 Modified Barium Swallow Study Pre-evaluation Dietary Consistencies: Regular Pre-evaluation Liquid Consistency: Thin Pre-evaluation Medication Administration: Whole with Liquid Medical History: Modified Barium Swallow Study Fluoroscopic Evaluation of Swallowing Function CPT Code 73719 Evaluation Year: 2023 Reason for Study: Pt reporting difficulty swallowing. Referring Physician: Chelsea Patel NP Evaluating Clinician: Lizy Rangel MA, CCC-TUBING TESTER Study Number: 1 Patient Name: Arturo Krishna Status: Outpatient, Ambulatory Age: 28 Gender: Female Medical History Iron deficiency anemia, migraines, tonsillectomy Current (pre-evaluation) Intake/Diet: Route: PO Diet Grade: Regular Liquid Consistencies: Thin Pre-Study Functional Oral Intake Scale (FOIS): 7- Total oral intake with no restrictions Patient Self-Perception Rating Forms: Roxanne Anastacio Dysphagia Inventory (MDADI): Global Score= (4), Total Score= (62), Mean= ([id number]) with a Multiple Mean of ([id number]) whereby 20 is low functioning and 100 is maximum functioning. Pain: None reported at time of study SUBJECTIVE: Patient is a 28 year old female with history including lymph adenopathy, hypothyroidism, and self-reporting history of tonsil removal. Patient was noted to have trace penetration on thick barium during her barium swallow exam on 12/09/23 with Radiology recommending TUBING TESTER further assess. She was also recommended an EGD due to concerns of gastritis. Patient reports onset of dysphagia dating back to this past . She says she experienced an allergic reaction and sensation of a scratchy throat, which lead her to having trouble swallowing food. She says that food feels stuck, her throat feels swollen, and she needs to swallow with great effort to get food down. She says this now happens daily, especially with certain foods, such as bread, hard candy, or anything that is chewy. She denies odynophagia. Oral Motor Exam Facial Symmetry: Symmetrical Mouth Occlusion: Normal Oral-Facial Teeth Characteristics: Intact/Normal Oral-Facial Lip Pucker Description: Normal Oral-Facial Smile (Lips) Description: Normal Oral-Facial Puff Cheeks Description: Normal Tongue Size: Normal Tongue Excursion Description: Normal Tongue Range of Movement Description: Normal Tongue Speed of Movement Description: Normal Tongue Strength of Movement (against opposing pressure): Normal Tongue Movement Characteristics: Normal/Absent Is patient able to manage secretions?: Yes Is patient able to produce volitional cough?: Yes Food and Liquid Trials: Oral Impairment: Lip Closure: 0=No labial escape Oral Impairment: Tongue Control During Bolus Hold: Did not test Oral Impairment: Bolus Preparation/Mastication: 0=Timely and efficient chewing and mashing Oral Impairment: Bolus Transport/Lingual Motion: 0=Brisk tongue motion Oral Impairment: Oral Residue: 1=Trace residue lining oral structures Oral Impairment:Initiation of Pharyngeal Swallow: 0=Bolus head at posterior angle of ramus (first hyoid excursion) Pharyngeal Impairment: Soft Palate Elevation: 0=No bolus between soft palate (SP)/pharyngeal wall (PW) Pharyngeal Impairment: Laryngeal Elevation: 0=Complete superior movement of thyroid cartilage (see description) Pharyngeal Impairment: Anterior Hyoid Excursion: 0=Complete anterior movement Pharyngeal Impairment: Epiglottic Movement: 0=Complete inversion Pharyngeal Impairment: Laryngeal Vestibular Closure:: 0=Complete: no air/contrast in laryngeal vestibule Pharyngeal Impairment: Pharyngeal Stripping Wave: 0=Present: complete Pharyngeal Impairment: Pharyngeal Contraction: Did not test Pharyngeal Impairment: Pharyngoesophageal Segment Openin=Complete distension and complete duration: no obstruction of flow Pharyngeal Impairment: Tongue Base (TB) Retraction: 0=No contrast between tongue base and posterior pharyngeal wall Pharyngeal Impairment: Pharyngeal Residue: 1=Trace residue within or on pharyngeal structures Pharyngeal Impairment: Esophageal Clearance Upright Position: 0=Complete clearance: esophageal coating Impressions and Recommendations OBJECTIVE: Time-out: performed at 14:00 Evaluation Start: 13:30; Stop: 13:50 Patient Positioning: Standing Viewing Planes: LATERAL ONLY Contrast: MBSImP? Standardized Protocol using commercially prepared, standardized Barium viscosities, including: Varibar? THIN LIQUID (40% w/v, <15 cps) , 1/2 Shortbread Cookie (1 x1 x.25 ) MBSImP ID: [id number] MBSImP Results: Lip closure for intraoral bolus containment resulted in no labial escape. Tongue control during bolus hold could not be assessed due to logistical reasons not related to physiologic impairment. Bolus preparation and mastication resulted in timely and efficient chewing and mashing. Bolus transport/lingual motion was with brisk tongue motion. Oral residue was a trace, lining oral structures. Initiation of the pharyngeal swallow occurred as the bolus head reached the posterior angle of the mandibular ramus. Soft palate elevation resulted in no bolus between the soft palate and the pharyngeal wall. Laryngeal elevation demonstrated complete superior movement of the thyroid cartilage with complete approximation of the arytenoids to the epiglottic petiole. Anterior hyoid excursion demonstrated complete anterior movement. Epiglottic movement resulted in complete inversion. Laryngeal vestibular closure was complete, as indicated by no air or contrast within the laryngeal vestibule at the height of the swallow. Pharyngeal stripping wave was present and complete. Pharyngeal contraction could not be determined due to logistical reasons not related to physiologic impairment. Pharyngoesophageal segment opening was completely distended for complete duration with no obstruction of bolus flow. Tongue base retraction allowed no contrast between the retracted tongue base and the posterior pharyngeal wall. Pharyngeal residue was a trace within or on pharyngeal structures. Esophageal clearance in the upright position was complete, with only a coating of contrast, if any. Oral Impairment Score: 0 (absence of score, component 2) Pharyngeal Impairment Score: 0 (absence of score, component 13) Esophageal Impairment Score: 0 Laryngeal Penetration and Aspiration: Neither penetration nor aspiration was observed in today's study with Cookie, Thin. ASSESSMENT: This exam was conducted by the speech pathologist and the radiologist. Patient was standing for lateral view only. She was able to feed herself and trialed thin (via cup sip), puree, and regular solid (Arabella Doone cookie) textures. Note complete lip closure with no anterior loss of bolus. Mastication was timely and efficient with timely, brisk posterior lingual transport of bolus. Pharyngeal swallow trigger was timely. Post-swallow, there was trace oral residuals, considered to be within normal limits. No evidence of nasopharyngeal reflux. Complete laryngeal elevation with complete epiglottic invesion and complete laryngeal vestibular closure. No evidence of aspiration or penetration during this exam. Patient complained of feeling something stuck in her throat for an extended period of time after swallowing, though she demonstrated good pharyngeal clearance, with any trace residuals clearing on subsequent swallows. Patient swallowed whole barium pill tablet with sips of water. Tablet passed through the oral and pharyngeal cavities with no hang-up. No obstruction of flow through the pharyngoesophageal segment opening. Liquid Intake Recommendation: Thin Liquid Intake Strategies: Unrestricted Dietary Recommendations: Regular Medication Administration: Whole with Liquid Please contact the pharmacy regarding appropriate crushable or liquid drug formulations that are available whenever modified delivery is recommended. Supervision during eating and or drinking: None Needed Recommendation for Speech Therapy: NA:Typical Evaluation Text Comment: Intake Recommendations: Route: PO Diet Grade: Regular Liquid Consistencies: Thin Post-Study Functional Oral Intake Scale (FOIS): 7- Total oral intake with no restrictions Unremarkable exam. Oral and pharyngeal phases of the swallow are deemed to be within functional limits. Further ST intervention is not warranted based on observations made during this exam. Suggested Referrals: The patient might benefit from a referral to: Otolaryngology Indication for Referral: Patient with history of allergies, hypothyroidism, lymph adenopathy, hx tonsillectomy, complains of globus sensation though MBSS shows good oral and pharyngeal clearing. Patient also reports losing her voice and pain when singing. Patient may benefit from ENT referral to investigate concerns surrounding her voice, with TUBING TESTER referral if needed based on ENT assessment. The patient might benefit from a referral to: Gastroenterology Indication for Referral: 12/09/23 barium swallow x-ray with ?findings suggestive of gastritis.? Therapy Recommendations: Therapy will be discontinued Prognosis for Improvement: The prognosis for the patient to meet nutritional needs by mouth is excellent based on observations made during this exam. Clinician - Supplemental, Miscellaneous Communication: It is important to note MBSS objective studies are snapshots in time and Patient function might vary with factors such as time of day or concomitant medical conditions. For this reason, the final treatment plan for this patient should rest with their medical care team. Additional recommendations should be considered with the totality of the Patient in mind. Thank for the opportunity to participate in the care of this patient. If you have any questions about the content of this report, please contact the [facility] at [facility]. Education: Education regarding findings from today's study and plans for therapy were provided to Patient only through Verbal Instruction. Understanding was expressed by the Patient only. House Supervisor Clinician/Clinical Fellow: No Supervisory Statement: N/A Speech Language Pathologist: Lizy Rangel M.A., [facility]-TUBING TESTER
== END 2024-03-10 13:21 | disposition home or self-care (01) ==
LOC: HO.XRAY 13:20
PROVIDERS: PCP Nurse Practitioner; Visit Provider Nurse Practitioner
DX: R13.19 Other dysphagia (principal)
CPT/HCPCS: 74230; 92611

== ENCOUNTER → 2024-03-10 13:30 | Outpatient (BNV) | payer MEDICAID, SELFPAY | PROVIDERS: PCP Nurse Practitioner; Visit Provider Physician Assistant Surgical | DX: R13.10 Dysphagia, unspecified (principal) | CPT/HCPCS: 74230 ==

== ENCOUNTER 2024-06-11 14:35 | Outpatient (REF) | payer MEDICAID, SELFPAY ==
[2024-06-11 16:05] LABS: MANUAL DIFF FLAG NO
[2024-06-11 16:12] LABS: Basophils Absolute Auto 0.1 X10*3/uL (0.0-0.2); Basophils Percent Auto 1.3 % (0-2); Eosinophils Absolute Auto 0.1 X10*3/uL (0.0-0.4); Eosinophils Percent Auto 1.7 % (0-4); Hematocrit 30.6 % (37.0-47.0); Hemoglobin 9.4 g/dl (12.0-16.0); Imm Gran Abs Auto 0.01 X10*3/uL (0.00-0.03); Imm Gran Pct Auto 0.2 % (0.0-0.4); Lymphocytes Absolute Auto 1.7 X10*3/uL (1.2-4.9); Lymphocytes Percent Auto 36.6 % (20-40); Mean Corpuscular HGB Conc 30.7 g/dl (31.0-35.0); Mean Corpuscular Volume 71.7 fL (80.0-98.0); Monocytes Absolute Auto 0.4 X10*3/uL (0.1-1.2); Monocytes Percent Auto 8.4 % (2-11); Neutrophils Absolute Auto 2.5 x10*3/uL (2.0-8.3); Neutrophils Percent Auto 51.8 % (45-73); Platelet Count 242 X10*3/uL (160-400); Red Blood Count 4.27 X10*6/uL (4.20-5.50); Red Cell Distribution Width 17.2 % (11.0-16.0); White Blood Count 4.8 X10*3/uL (4.8-10.8)
[2024-06-11 16:51] LABS: TSH reflex Free T4 4.97 uIU/mL (0.32-4.0); Thyroid Stimulating Hormone 4.97 uIU/mL (0.32-4.0)
[2024-06-11 17:21] LABS: Free T4 (Free Thyroxine) 1.02 ng/dL (0.71-1.85)
[2024-06-12 13:43] LABS: H Pylori Breath Test Negative (Negative)
[2024-06-12 16:53] LABS: Triiodothyronine T3 Total 83 ng/dL (76-181)
== END 2024-06-11 14:36 | disposition home or self-care (01) ==
LOC: HO.HHCL 14:35
PROVIDERS: Visit Provider Nurse Practitioner
DX: E03.9 Hypothyroidism, unspecified (principal); D50.9 Iron deficiency anemia, unspecified; E03.8 Other specified hypothyroidism
CPT/HCPCS: 36415; 83013; 84439; 84443; 84480; 85025

== ENCOUNTER 2024-07-31 07:35 | Emergency (ER) | payer MEDICAID, SELFPAY ==
--- NOTE | ~2024-07-31 | XR_ITS ---
EXAMINATION: XR HAND, RIGHT CLINICAL INFORMATION: Pain COMPARISON: None available. TECHNIQUE: PA, lateral, and oblique views of the right hand. FINDINGS: Visualized portions of the distal radius and ulna demonstrate no fracture. Carpal rows are maintained. The carpal, metacarpal or phalangeal fracture. No appreciable degenerative changes. No localized soft tissue swelling. No radiopaque foreign body. XR/XR hand RT min 3V IMPRESSION: Unremarkable radiographs of the right hand. Electronically signed by: Lucho Burgos MD 07/31/2024 08:26 AM EDT
[2024-07-31 07:40] VITALS: BP 125/69; PULSE 79; RESP 18; TEMP 37; O2SAT 100; BMI 20.5
--- NOTE | 2024-07-31 08:50 | PC.NURSE ---
pt a&ox3, vss, + csm/pulses to extremity, awaiting provider, will continue to monitor
--- NOTE | 2024-07-31 09:12 | ED.EXTPRO ---
HPI - Extremity Problem General Chief complaint: Extremity Injury, Upper Stated complaint: Broken finger R hand Time Seen by Provider: 07/31/24 09:06 Source: patient and family Mode of arrival: ambulatory Limitations: no limitations History of Present Illness ED Provider: Aimee Duke APRN HPI Narrative: 29 yo female with history of hashimotos, anemia, right hand dominance who presents to the ER with complaints of right hand (5th digit) pain after a hyperflexion injury while opening up her car door this morning. Since then pain/swelling and difficulty with range of motion. No associated weakness, numbness, tingling, redness or warmth. Related Data Previous Rx's ?Medication ?Instructions ?Recorded [id number]-[id number]-[id number] 1 cap PO Q8H PRN pain #10 caps 11/20/20 50 mg-300 mg-40 mg capsule (Fioricet) cyclobenzaprine 10 mg tablet 10 mg PO Q8H PRN Muscle spasm #14 03/15/22 tabs lidocaine HCl 4 % topical cream 1 appl topical BID PRN pain #120 03/15/22 (Aspercreme (lidocaine HCl)) grams naproxen 500 mg tablet 500 mg PO BID PRN pain #14 tabs 03/15/22 acetaminophen 325 mg capsule 650 mg (2 x 325 mg) PO Q6H PRN 07/31/24 pain #30 caps ibuprofen 600 mg tablet 600 mg PO Q6H PRN pain #30 tabs 07/31/24 Allergies Allergy/AdvReac Type Severity Reaction Status Date / Time loratadine [From CLARITIN] Allergy Intermediate RASH Verified 07/31/24 07:42 almond Allergy Unknown SWELLING Verified 07/31/24 07:42 corn [CORN] Allergy Unknown SWELLING Verified 07/31/24 07:42 hazelnut Allergy Unknown SWELLING Verified 07/31/24 07:42 latex [LATEX] Allergy Unknown RASH Verified 07/31/24 07:42 Review of Systems Review of Systems: Yes all other systems are reviewed and are negative Constitutional: Constitutional: Reports no additional constitutional complaints, Denies body ache(s), Denies chills, Denies fever(s), Denies headache(s) and Denies weakness Eyes: Eyes: Reports no additional eye complaints and Denies change in vision ENT: Reports system reviewed and no additional complaints, except as documented, Denies dizziness, Denies headache(s), Denies nasal congestion, Denies nasal discharge and Denies neck pain Cardiovascular: Cardiovascular: Reports no additional cardiovascular complaints, Denies chest pain, Denies leg edema and Denies dyspnea Respiratory: Respiratory: Reports no additional respiratory complaints, Denies cough and Denies dyspnea Gastrointestinal: Gastrointestinal: Reports no additional gastrointestinal complaints, Denies abdominal pain, Denies diarrhea, Denies nausea and Denies vomiting Genitourinary: Genitourinary: Reports no additional female genitourinary complaints and Denies urinary incontinence Musculoskeletal: Musculoskeletal: Reports no additional musculoskeletal complaints, Denies back pain, Denies arthralgias, Denies joint swelling, Denies neck pain, Denies numbness and Denies tingling Integumentary/Breasts: Skin/Breast: Reports system reviewed and no additional complaints, except as docu and Denies rash Neurologic: Reports system reviewed and no additional complaints, except as documented, Denies Abnormal speech present, Denies dizziness, Denies headache(s), Denies numbness, Denies tingling and Denies weakness PMF Past Medical History Attestation statement: The following information was validated with the patient. Source: old records reviewed and nursing notes reviewed Medical History Migraines Surgical History Hx of tonsillectomy Social History Social History Alcohol intake: unknown Advance Directives: No Do you have a plan to hurt others: No Plan Physical Exam Vital Signs: Vital Signs: Last Vital Signs Temp 98.2 F 07/31/24 09:28 Pulse 73 07/31/24 09:28 Resp 18 07/31/24 09:28 BP 118/63 07/31/24 09:28 Pulse Ox 100 07/31/24 09:28 O2 Del Method Room Air 07/31/24 09:28 BMI result Body Mass Index 20.5 Const: General: cooperative, healthy appearing, comfortable and no acute distress Orientation/consciousness: patient oriented x3 Limitations: no limitations HEENT: Head: Yes normal to inspection Ears: hearing grossly normal bilaterally General nose exam: Normal external nose present Face and sinus: Yes normal facial exam Mouth: Normal oral and palatal mucosa present Throat: Yes posterior oropharynx normal Eyes: General: appearance normal, both eyes and all related structures Pupils: Equal, round and reactive pupils present Neck: Neck: Yes normal visual inspection Chest: Chest palpation & inspection: normal inspection of the chest Resp: Effort & Inspection: normal respiratory effort Auscultation: clear to auscultation bilaterally Cardio: Rate: regular rate Rhythm: regular rhythm Peripheral pulses: Peripheral pulses 2+ throughout GI: Inspection: Yes normal to inspection Palpation (GI): Soft to palpation and nontender Auscultation: normal bowel sounds Back/Spine/Pelvis: Thoracic/Lumbar Spine: thoracic and lumbar spine normal to inspection Skin: General skin exam: no rashes or lesions noted Neuro: General: patient oriented x3, no focal motor deficits and normal sensation to monofilament Cranial nerves: Yes Equal, round and reactive pupils present Cognition (Neuro): normal cognition Speech: No Abnormal speech present Gait exam (Neuro): Normal gait present Motor exam (neuro): 5/5 motor strength present throughout Extrem: Other: To the right hand (5th digit) there is pain/swelling and ecchymosis noted over the volar aspect at the base. Patient has the finger held in partial flexion and has pain/difficulty with ROM for flexion/extension of the digit. NO pain on palpation over the hand/other digits. Course Course Course Narrative: X-ray show no bony abnormality. Patient may have a ligamental sprain or injury. I do recommend that she use a finger splint, perform rice and follow up with Orthopedics for any continued symptoms. Reviewed worrisome signs and symptoms of when to return to the emergency room. Comfortable plan for discharge home. Medical Decision Making Medical Decision Making MDM Narrative: 29 yo female with history of hashimotos, anemia, right hand dominance who presents to the ER with complaints of right hand (5th digit) pain after a hyperflexion injury while opening up her car door this morning. Since then pain/swelling and difficulty with range of motion. No associated weakness, numbness, tingling, redness or warmth. To the right hand (5th digit) there is pain/swelling and ecchymosis noted over the volar aspect at the base. Patient has the finger held in partial flexion and has pain/difficulty with ROM for flexion/extension of the digit. NO pain on palpation over the hand/other digits. Will obtain x-rays Differential Diagnosis Differential Diagnoses: The differential diagnosis associated with the presentation includes Sprain, strain, fracture, dislocation, ligamental injury Low suspicion for complex fracture, vascular injury, tendon injury Admission/Observation Consideration of admission/observation: Escalation of care including admission/observation considered Low suspicion for complex fracture, vascular injury, tendon injury requiring advanced imaging, urgent ortho consultation Independent Interpretation I performed an independent interpretation of an: Plain X-Ray Interpretation: I independently reviewed the x-ray and agree with the radiology report Radiology Impression Discussion of test interpretation with radiology: I have reviewed the radiologist's reading. Radiologist Impression: [address] [address] XRay Report Signed Patient: Arturo Molina MR#: [id number] : 1995 Acct:[id number] Age/Sex: 29 / F ADM Date: 07/31/24 Loc: HO.ED Attending Dr: Ordering Physician: Generic ED Physician Date of Service: 07/31/24 Procedure(s): XR hand RT min 3V Accession Number(s): [id number] cc: Chelsea Patel; Generic ED Physician~ EXAMINATION: XR HAND, RIGHT CLINICAL INFORMATION: Pain COMPARISON: None available. TECHNIQUE: PA, lateral, and oblique views of the right hand. FINDINGS: Visualized portions of the distal radius and ulna demonstrate no fracture. Carpal rows are maintained. The carpal, metacarpal or phalangeal fracture. No appreciable degenerative changes. No localized soft tissue swelling. No radiopaque foreign body. XR/XR hand RT min 3V IMPRESSION: Unremarkable radiographs of the right hand. Electronically signed by: Lucho Burgos MD 07/31/2024 08:26 AM EDT Independent Historian Clinical information obtained from an independent historian. History obtained from or confirmed by: Friend Tests considered The following testing was considered but not selected: Low suspicion for complex fracture, vascular injury, tendon injury requiring advanced imaging Prescription Management I considered prescription management with: Pain Medication Discharge Plan Discharge Clinical Impression: Finger sprain Patient Disposition: Home, Self-Care Instructions: Finger Sprain (ED) Additional Instructions: Use the finger splint for comfort Apply ice to the affected area Perform gentle stretching of the finger If you continue to have difficulty with range of motion we would recommend that you follow-up outpatient with orthopedics. Please see their attached phone number. Take Motrin or Tylenol for any pain that you may have Prescriptions: New acetaminophen 325 mg capsule 650 mg PO Q6H PRN (Reason: pain) Qty: 30 0RF ibuprofen 600 mg tablet 600 mg PO Q6H PRN (Reason: pain) Qty: 30 0RF No Action urerxcryrv-zhfswcfcigsmm-xmwk [Fioricet] 50-300-40 mg capsule 1 cap PO Q8H PRN (Reason: pain) Qty: 10 0RF naproxen 500 mg tablet 500 mg PO BID PRN (Reason: pain) Qty: 14 0RF cyclobenzaprine 10 mg tablet 10 mg PO Q8H PRN (Reason: Muscle spasm) Qty: 14 0RF lidocaine HCl [Aspercreme (lidocaine HCl)] 4 % cream 1 appl topical BID PRN (Reason: pain) Qty: 120 0RF Referrals: [facility] [place] [facility] [Provider Group] - 1 week Stand Alone Forms: Work/School Release Interventions: ED Discharge Assessment Last Done: 07/31/24 09:28 Discharge Date/Time: 07/31/24 09:29 Print Language: Uzbek
--- NOTE | 2024-07-31 09:27 | PC.NURSE ---
splint applied by tech to rt 5th digit.
[2024-07-31 09:28] VITALS: BP 118/63; PULSE 73; RESP 18; TEMP 36.8; O2SAT 100
== END 2024-07-31 09:29 | disposition home or self-care (01) ==
PROVIDERS: Emergency Provider Internal Medicine; PCP Nurse Practitioner
DX: S63.616A Unspecified sprain of right little finger, initial encounter (principal); X50.9XXA Other and unspecified overexertion or strenuous movements or postures, initial encounter; Y93.89 Activity, other specified; Y92.810 Car as the place of occurrence of the external cause; Y99.9 Unspecified external cause status
CPT/HCPCS: 29130; 73130; 99282; 99283

== ENCOUNTER 2024-09-08 15:52 | Outpatient (REF) | payer MEDICAID, SELFPAY ==
--- NOTE | ~2024-09-08 | XR_ITS ---
EXAMINATION: XR RIBS, BILATERAL CLINICAL INFORMATION: Tender subcutaneous fixed nodules COMPARISON: February 2022. TECHNIQUE: 3 views of the bilateral ribs were obtained. FINDINGS: No evidence for airspace consolidation or pneumothorax. Hilar regions and pulmonary vascularity unremarkable. Pleural surfaces appear to be clear. No evidence for bony fractures. The cortical surfaces of the ribs appear to be intact. There is no appreciable erosive process identified. XR/XR ribs BI min 4V w CXR1V IMPRESSION: No evidence for acute bony fracture seen on this evaluation. No erosive lesions of bone identified. No airspace consolidations or effusions identified. Electronically signed by: Sage Francis MD 09/09/2024 10:40 AM ALEAH
== END 2024-09-08 15:53 | disposition home or self-care (01) ==
LOC: HO.HHCX 15:52
PROVIDERS: Visit Provider Nurse Practitioner Family
DX: R22.9 Localized swelling, mass and lump, unspecified (principal)
CPT/HCPCS: 71111

== ENCOUNTER 2024-11-16 08:41 | Outpatient (REF) | payer MEDICAID, SELFPAY ==
[2024-11-16 11:32] LABS: Hematocrit 29.7 % (37.0-47.0); Hemoglobin 9.1 g/dl (12.0-16.0); Mean Corpuscular HGB Conc 30.6 g/dl (31.0-35.0); Mean Corpuscular Hemoglobin 21.7 pg (27.0-33.0); Mean Corpuscular Volume 70.9 fL (80.0-98.0); Mean Platelet Volume 10.6 fL (9.4-12.3); Platelet Count 234 X10*3/uL (160-400); Red Blood Count 4.19 X10*6/uL (4.20-5.50); Red Cell Distribution Width 17.1 % (11.0-16.0); White Blood Count 4.4 X10*3/uL (4.8-10.8)
== END 2024-11-16 08:42 | disposition home or self-care (01) ==
LOC: HO.HHCL 08:41
PROVIDERS: Visit Provider Nurse Practitioner Family
DX: D50.8 Other iron deficiency anemias (principal)
CPT/HCPCS: 36415; 85027

== ENCOUNTER 2024-12-06 08:19 | Outpatient (REF) | payer MEDICAID, SELFPAY ==
--- OUTSIDE RECORDS SUMMARY | 2024-12-06 08:33 | XMS_ITS | Encounter Summary ---
Author Organization [employer] Address [address] [place] [address] Care Team Providers Care Metal Sash Setter Name Role Phone Chelsea Patel TANK TRUCK LOADER Primary Care Provider [phone] Reason for Visit * Reason Onset Date Comments New Med Request 12/22/2023 Encounter Details Date Type Department Care Team ([facility] st Contact Info) Description 12/22/2023 Telephone [facility] MEDICINE [address] [place] [address] Chelsea Patel NP [address] [place] [address] New Med Request Social History Tobacco Use Types Packs/Day Years Used Date Smoking Tobacco: Never Smokeless Tobacco: Never Depression Answer Date Recorded Patient Health Questionnaire-9 Score 0 12/12/2023 Patient Health Questionnaire-9 Score 0 12/12/2023 Last PHQ-9: Questionnaire Data Not on file 0 12/12/2023 Housing Stability Answer Date Recorded What is your housing situation today? I have wali jimenez 08/29/[address] you li ve. Do you have problems with any of the following? None of the above 08/29/2023 Food Insecurity Answer Date Recorded Within the past 12 months, y ou worried that your food would run out before you got money to buy more: Never True 08/29/2023 Within the past 12 months,th e food you bought just didn't last and you didn't have enough money to get more: Never True 12/2022 Transportation Answer Date Recorded In the past 12 months, has l ack of transportation kept you from medical appts, meetings, work or from getting things needed for daily living? No 08/29/2023 Utilities Answer Date Recorded In the past 12 months, has t he electric, gas, oil or water company threatened to shut off services in your home? No 08/29/2023 Depression Answer Date Recorded Patient Health Questionnaire-2 Score 0 12/12/2023 Comments Unknown Sex and Gender Information Value Date Recorded Sex Assigned at Female 08/26/2022 10:21 AM EDT Legal Sex Female 10:21 AM EDT Gender Identity Female 08/26/2022 10:21 AM EDT Sexual Orientation Lesbian or Jones 08/26/2022 10 :21 AM EDT documented as of this encounter Miscellaneous Notes * Telephone Encounter - Guillermo Harding RN - 12/23/2023 10:48 AM EST Medication sent to pharmacy, pt. Informed. Pt. Verbally agreed and understood. * Telephone Encounter - Lakesha Carlos - 12/22/2023 9:15 AM EST Tc from pt calling requesting script for Iron and Vitamin C, pt stated during last visit with PCP provider told her will send it. documented in this encounter Plan of Treatment Upcoming Encounters Date Type Department Care Team (Late st Contact Info) Description 12/10/2024 10:15 AM EST Office Visit [facility] MEDICINE [address] [place] [address] Chelsea Patel NP [address] [place] [address] documented as of this encounter Visit Diagnoses Not on filedocumented in this encounter Additional Health Concerns Assessment Noted Time PHQ-9 Depression Total Score: 0 12/12/19 24 2:12 PM EST documented as of this encounter Care Teams Metal Sash Setter Relationship Specialty Start Date End Date Chelsea Patel NP [address] [place] [address] PCP - General Family Medicine 08/29/23 documented as of this encounter
--- OUTSIDE RECORDS SUMMARY | 2024-12-06 08:33 | XMS_ITS | Encounter Summary ---
Author Organization [employer] Address [address] [place] [address] Care Team Providers Care Mold Designer Name Role Phone Chelsea Patel GROCERY CLERK CHECKING Primary Care Provider [phone] Reason for Visit * Reason Onset Date Comments Nurse Triage 02/03/2024 Encounter Details Date Type Department Care Team ([facility] st Contact Info) Description 02/03/2024 Telephone [facility] MEDICINE [address] [place] [address] Chelsea Patel NP [address] [place] [address] Nurse Triage Social History Tobacco Use Types Packs/Day Years Used Date Smoking Tobacco: Never Smokeless Tobacco: Never Depression Answer Date Recorded Patient Health Questionnaire-9 Score 0 12/12/2023 Patient Health Questionnaire-9 Score 0 12/12/2023 Last PHQ-9: Questionnaire Data Not on file 0 12/12/2023 Housing Stability Answer Date Recorded What is your housing situation today? I have wali jimenez 09/08/[address] you li ve. Do you have problems with any of the following? None of the above 09/08/2024 Food Insecurity Answer Date Recorded Within the past 12 months, y ou worried that your food would run out before you got money to buy more: Never True 09/08/2024 Within the past 12 months,th e food you bought just didn't last and you didn't have enough money to get more: Never True Transportation Answer Date Recorded In the past 12 months, has l ack of transportation kept you from medical appts, meetings, work or from getting things needed for daily living? No 09/08/2024 Utilities Answer Date Recorded In the past 12 months, has t he electric, gas, oil or water company threatened to shut off services in your home? No 09/08/2024 Depression Answer Date Recorded Patient Health Questionnaire-2 Score 0 12/12/2023 Internet Access Answer Date Recorded Internet Access Q1 Yes 09/08/2024 Internet Access Q2 Not on file 09/08/2024 Comments Unknown Sex and Gender Information Value Date Recorded Sex Assigned at Female 08/26/2022 10:21 AM EDT Legal Sex Female 10:21 AM EDT Gender Identity Female 08/26/2022 10:21 AM EDT Sexual Orientation Lesbian or Jones 08/26/2022 10 :21 AM EDT documented as of this encounter Miscellaneous Notes * Telephone Encounter - Ora Sadler RN - 02/03/2024 8:47 AM EDT Called pt. She states that 10 years ago pt. Had allergy testing and is highly allergic to mold and other allergens. 7 months ago pt. Started having swollen lymph nodes, feelings of sickness every dayand she noticed that she has bad black mold in her bathroom of her apartment. She contacted her landlord 15 days ago about the mold problem and he has not gotten back to her yet. Pt wakes up every day with swollen, puffy eyes, large lymph nodes and sore throat. Pt states she called the Board of health to come assess her apartment due to her landlord not getting back to her. Pt. Wants a new referral to Supply Chain Generalist for updated allergy testing. Pt wondering if PCP can order a test to be done to see if she has mold in her body. Appt. Made for pt. For 02/18/24 at 1030am with PCP but, she is requesting a call back from her PCP when PCP has a free moment . Pt. States that at first thought it was her Thyroid but it is not her Thyroid and she thinks it is mold. Protocol Used: Lymph Nodes - Swollen / eye swelling(Adult) Protocol-Based Disposition: See in Office or Video Visit [employer]- appt made for 02/18/24 at 1030am with PCP. Video visit offer not recorded Positive Triage Question: * Tender node in the neck and also has a sore throat with minimal/no runny nose or cough * All higher-acuity triage questions were negative * Telephone Encounter - Tim Stearnsjia - 02/03/2024 8:40 AM EDT Symptom: Sore Throat Outcome: Schedule an urgent appointment (within 4 hours) or talk to a nurse or provider soon Reason: Trouble drinking and eating The caller accepted this outcome Please contact at [phone] documented in this encounter Plan of Treatment Upcoming Encounters Date Type Department Care Team (Late st Contact Info) Description 12/10/2024 10:15 AM EST Office Visit [facility] MEDICINE [address] [place] [address] Chelsea Patel NP [address] [place] [address] documented as of this encounter Visit Diagnoses Not on filedocumented in this encounter Additional Health Concerns Assessment Noted Time PHQ-9 Depression Total Score: 0 12/12/19 24 2:12 PM EST documented as of this encounter Care Teams Mold Designer Relationship Specialty Start Date End Date Chelsea Patel NP [address] [place] [address] PCP - General Family Medicine 08/29/23 documented as of this encounter
--- OUTSIDE RECORDS SUMMARY | 2024-12-06 08:33 | XMS_ITS | Clinical Summary ---
Author Organization [facility] Address [address] [place] [phone] Phone Care Team Providers Care Key Account Manager Name Role Phone Unavailable Primary Care Provider Unavailabl e Immunizations Immunization Administration Dates Next Due DTaP 5 03/02/1998, 5,1993,11/26,1993 HPV, Quadrivalent 07/11/2008,08/27/2007 Hep B, ped/adol 07/26/1994,1993,1993 Hib (HbOC) 01/13/1995, 4,1993,07/26 IPV 01/13/1995, 4,1993,07/26 Influenza Split 06/10/2011 MMR 03/02/1998,05/26/1994 Meningococcal Conj (Menactra) MCV4P 01/23/2006 OPV 03/02/1998 Td (adult) (MBL), 2 Lf tetan us toxoid, PF, adsorbed 01/10/2005 Family History Relation Name Status Comments Brother Alive Brother: Alive and well Half-Brother Alive Half brother (M ): Alive and well, Alive and well Mother Alive Mother: Asthma, Migraines, Depression Sister Alive Sister: Alive a nd well Social History Tobacco Use Types Packs/Day Years Used Date Smoking Tobacco: Never Assessed Comments Unknown Sex and Gender Information Value Date Recorded Sex Assigned at Not on file Legal Sex Female 4:36 PM EDT Gender Identity Not on file Sexual Orientation Not on file Last Filed Vital Signs Vital Sign Reading Time Taken Comments Blood Pressure 102/66 06/10/2011 12:00 AM EDT Pulse - - Temperature - - Respiratory Rate - - Oxygen Saturation - - Inhaled Oxygen Concentration - - Weight 57.2 kg (126 lb) 06/10/2011 12:00 AM EDT Height 157 cm (5' 1.8 ) 06/10/2011 12:00 AM EDT Body Mass Index 23.2 06/10/2011 12:00 AM EDT Plan of Treatment Health Maintenance Due Date Last Done Comments DTaP,Tdap,and Td Vaccines (6 - Tdap) 01/11/2005 01/10/2005, 03/02/1998, 01/13/1995, Additional history exists Varicella Vaccines (1 of 2 - 13+ 2-dose series) 2006 Influenza Vaccines (#1) 2024 06/10/2011 COVID-19 Vaccine ( season) 2024 Hepatitis B Vaccines Completed 07/26/1994, 1993, 1993 HIB Vaccines Completed 01/13/1995, 10/29, 1993, Additional history exists IPV Vaccines Completed 03/02/1998, 12/26, 1993, Additional history exists MMR Vaccines Completed 03/02/1998, 05/26/1994 Meningococcal Vaccine Aged Out 01/23/2006 No jennifer macario eligible based on patient's age to complete this topic HPV Vaccines Completed 07/11/2008, 08/27/2007 Hepatitis A Vaccines Aged Out No long er eligible based on patient's age to complete this topic Men B Vaccine Aged Out No longer elig ible based on patient's age to complete this topic Pneumococcal Vaccine Aged Out No long er eligible based on patient's age to complete this topic
--- OUTSIDE RECORDS SUMMARY | 2024-12-06 08:33 | XMS_ITS | Encounter Summary ---
Author Organization [facility] Address [address] [place] [id number] Phone Care Team Providers Care National Van Owner Operator Name Role Phone Unavailable Primary Care Provider Unavailabl e Encounter Details Date Type Department Care Team (Late st Contact Info) Description 07/25/2011 Documentation EM Family Medicine [address] [place] [address] Family Medicine, Physician [address] [place], [place] [id number] Social History Tobacco Use Types Packs/Day Years Used Date Smoking Tobacco: Never Assessed Comments Unknown Sex and Gender Information Value Date Recorded Sex Assigned at Not on file Legal Sex Female 4:36 PM EDT Gender Identity Not on file Sexual Orientation Not on file documented as of this encounter Plan of Treatment Not on file documented as of this encounter Visit Diagnoses Not on filedocumented in this encounter
--- OUTSIDE RECORDS SUMMARY | 2024-12-06 08:33 | XMS_ITS | Encounter Summary ---
Author Organization [employer] Address [address] [facility] 7t [place] [address] Care Team Providers Care Presales Senior Specialist Name Role Phone Chelsea Patel SOFTWARE ENGINEER BACKEND Primary Care Provider [phone] Reason for Visit * Reason Onset Date Comments Medication Question 01/05/2024 Encounter Details Date Type Department Care Team ([facility] st Contact Info) Description 01/05/2024 Telephone [facility] [address] [place] [address] Chelsea Patel NP [address] [place] [address] Medication Question Social History Tobacco Use Types Packs/Day Years Used Date Smoking Tobacco: Never Smokeless Tobacco: Never Depression Answer Date Recorded Patient Health Questionnaire-9 Score 0 12/12/2023 Patient Health Questionnaire-9 Score 0 12/12/2023 Last PHQ-9: Questionnaire Data Not on file 0 12/12/2023 Housing Stability Answer Date Recorded What is your housing situation today? I have walimelissa jimenez 08/29/[address] you [...] t he electric, gas, oil or water [employer] threatened to shut off services in your [...] encounter Miscellaneous Notes * Telephone Encounter - Stephanie Watts - 01/05/2024 11:32 AM EDT Tc from pt requesting to speak directly with provider in regards to antibiotics recently given. Pt does not want to speak with a nurse. Please contact pt at [phone] * Telephone Encounter - Guillermo Harding RN - 01/05/2024 11:20 AM EDT T/C to pt. For below message, pt, states she is taking Levothyroxine and recently prescribe anti-biotics. Wants to ask PCP, if is it ok to take antibiotics in morning as she is taking thyroid medication at night. Pt. Advised that message will be sent to PCP for review. Please review and advise if needed. * Telephone Encounter - Gordy Kennedy - 01/05/2024 10:54 AM EDT Tc from patient calling to request a call back in regards to the antibiotics that was recently prescribed needs clarification if ok to take while currently on medications documented in this encounter Plan of Treatment Upcoming Encounters Date Type Department Care Team (Late st Contact Info) Description 12/10/2024 10:15 AM EST Office Visit [facility] [address] [place] [address] Chelsea Patel NP [address] [place] [address] documented as of this encounter Visit Diagnoses Not on filedocumented in this encounter Additional Health Concerns Assessment Noted Time PHQ-9 Depression Total Score: 0 12/12/19 24 2:12 PM EST documented as of this encounter Care Teams Presales Senior Specialist Relationship Specialty Start Date End Date Chelsea Patel NP [address] [place] [address] PCP - General Family Medicine 08/29/23 documented as of this encounter
--- OUTSIDE RECORDS SUMMARY | 2024-12-06 08:33 | XMS_ITS | Encounter Summary ---
Author Organization [employer] Address [address] [facility] 7t [place] [address] Care Team Providers Care Supervisor Winding Department Name Role Phone Chelsea Patel TRAP PULLER Primary Care Provider [phone] Reason for Visit * Reason Comments Med Refill Encounter Details Date Type Department Care Team ([facility] st Contact Info) Description 01/26/2024 Refill [facility] MED[facility]INE [address] [place] [address] Chelsea Patel NP [address] [place] [address] Hypothyroidism, unspecified type Social History Tobacco Use Types Packs/Day Years [...] AM EDT documented as of this encounter Plan of Treatment Upcoming Encounters Date Type Department Care Team (Late st Contact Info) Description 12/10/2024 10:15 AM EST Office Visit [facility]INE [address] [place] [address] Chelsea Patel NP [address] [place] [address] documented as of this encounter Visit Diagnoses Diagnosis Hypothyroidism, unspecified type documented in this encounter Additional Health Concerns Assessment Noted Time PHQ-9 Depression Total Score: 0 12/12/19 24 2:12 PM EST documented as of this encounter Care Teams Supervisor Winding Department Relationship Specialty Start Date End Date Chelsea Patel NP [address] [place] [address] PCP - General Family Medicine 08/29/23 documented as of this encounter
--- OUTSIDE RECORDS SUMMARY | 2024-12-06 08:33 | XMS_ITS | Encounter Summary ---
Author Organization [employer] Address [address] [facility] 7t [place] [address] Care Team Providers Care Sports Teacher Name Role Phone Chelsea Patel DIRECTOR STATE PHARMACY Primary Care Provider [phone] Reason for Visit * Reason Onset Date Comments Medication Question 01/27/2024 Encounter Details Date Type Department Care Team ([facility] st Contact Info) Description 01/27/2024 Telephone [facility] MEDICINE [address] [place] [address] Chelsea Patel NP [address] [place] [address] Medication Question Social History Tobacco Use Types [...] t he electric, gas, oil or water [employer] threatened to shut off services in your [...] Telephone Encounter - Guillermo Harding RN - 01/28/2024 2:32 PM EDT T/C to pt. For below message, pt. Verbally greed and understood. * Telephone Encounter - Chelsea Patel NP - 01/28/2024 2:06 PM EDT Please tell her that there is no need to stop her treatment for the biopsy. Will you also inform her that I will be placing a lab order for repeat thyroid testing. Please ask her to so the lab in themorning * Telephone Encounter - Guillermo Harding RN - 01/27/2024 9:41 AM EDT Please review and advise for below message, pt. Is on anti-biotics for H-pylori medication. * Telephone Encounter - Homer Moreno - 01/27/2024 9:13 AM EDT Tc from pt is requesting call back from nurses regarding antibiotics. Pt is having biopsy this Friday and wants to know if they should stop taking antibiotics before biopsy. Please contact pt at [phone]. documented in this encounter Plan of Treatment Upcoming Encounters Date Type Department Care Team (Late st Contact Info) Description 12/10/2024 10:15 AM EST Office Visit [facility] MEDICINE [address] [place] [address] Chelsea Patel NP [address] [place] [address] documented as of this encounter Visit Diagnoses Not on filedocumented in this encounter Additional Health Concerns Assessment Noted Time PHQ-9 Depression Total Score: 0 12/12/19 24 2:12 PM EST documented as of this encounter Care Teams Sports Teacher Relationship Specialty Start Date End Date Chelsea Patel NP [address] [place] [address] PCP - General Family Medicine 08/29/23 documented as of this encounter
--- OUTSIDE RECORDS SUMMARY | 2024-12-06 08:33 | XMS_ITS | Encounter Summary ---
Author Organization [facility] Address [address] [place] [address] Phone Care Team Providers Care Grinding Wheel Operator Name Role Phone Unavailable Primary Care Provider Unavailabl e Encounter Details Date Type Department Care Team (Late st Contact Info) Description 06/11/2011 Documentation EM Family Medicine [address] [place] [address] Family Medicine, Physician [address] [place], [place] [address] Social History Tobacco Use Types Packs/Day Years [...]
--- OUTSIDE RECORDS SUMMARY | 2024-12-06 08:33 | XMS_ITS | Encounter Summary ---
Author Organization [employer] Address [address] [facility] 7t [place] [address] Care Team Providers Care Health Center Manager Name Role Phone Chelsea Patel INDEPENDENT LIVING INSTRUCTOR Primary Care Provider [phone] Reason for Visit * Reason Onset Date Comments Medication Question 12/16/2023 Encounter Details Date Type Department Care Team ([facility] st Contact Info) Description 12/16/2023 Telephone [facility] MEDICINE [address] [place] [address] Chelsea Patel NP [address] [place] [address] Medication Question Social History Tobacco Use Types [...] t he electric, gas, oil or water [email or web address] threatened to shut off services in your [...] Encounter - Guillermo Harding RN - 12/23/2023 9:01 AM EST Noted, Thanks. * Telephone Encounter - Chelsea Patel NP - 12/22/2023 3:11 PM EST Yes, the medication instructions changed from morning to nightly administration. This was discussedwith the patient and she agreed with the change * Telephone Encounter - Guillermo Harding RN - 12/17/2023 12:18 PM EST Please review and advise for below message. * Telephone Encounter - Gordy Kennedy - 12/16/2023 9:24 AM EST Tc from patients pharmacy requesting a call back for clarification on a the medication levothyroxine (Tirosint) 50 MCG capsule the pharmacy stated the medication instruction has changed from taking it in the morning to taking it at night before bedtime documented in this encounter Plan of Treatment Upcoming Encounters Date Type Department Care Team (Late st Contact Info) Description 12/10/2024 10:15 AM EST Office Visit [facility] MEDICINE [address] [place] [address] Chelsea Patel NP [address] [place] [address] documented as of this encounter Visit Diagnoses Not on filedocumented in this encounter Additional Health Concerns Assessment Noted Time PHQ-9 Depression Total Score: 0 12/12/19 24 2:12 PM EST documented as of this encounter Care Teams Health Center Manager Relationship Specialty Start Date End Date Chelsea Patel NP [address] [place] [address] PCP - General Family Medicine 08/29/23 documented as of this encounter
--- OUTSIDE RECORDS SUMMARY | 2024-12-06 08:33 | XMS_ITS | Encounter Summary ---
Author Organization [employer] Address [address] [facility] 7t [place] [address] Care Team Providers Care Prenatal Teacher Name Role Phone Chelsea Patel NEEDLE SETTER Primary Care Provider [phone] Encounter Details Date Type Department Care Team (Late st Contact Info) Description 11/07/2023 Orders Only [facility] [address] [place], [place] [phone] Salomón Luong MD [address] [place] [address] Other specified hypothyroidism (Primary Dx) Social History Tobacco Use Types Packs/Day Years Used Date Smoking Tobacco: Never Smokeless Tobacco: Never Depression Answer Date Recorded Patient Health Questionnaire-9 Score 0 08/29/2023 Patient Health Questionnaire-9 Score 0 08/29/2023 Last PHQ-9: Questionnaire Data Not on file 1 10/29/2022 Housing Stability Answer Date Recorded What is [...] Date Recorded Patient Health Questionnaire-2 Score 0 08/29/2023 Comments Unknown Sex and Gender Information Value [...] Description 12/10/2024 10:15 AM EST Office Visit [facility] MEDICINE [address] [place], [place] [phone] Chelsea Patel NP [address] [place], [place] [phone] Scheduled Orders Name Type Priority Associated Diagnoses Orde r Schedule TSH W/Reflex to FT4 Lab Routine Other specified hypothyroidism Expected: 11/07/2023 (Approximate), Expires: 11/07/2024 documented as of this encounter Procedures Procedure Name Priority Date/Time Associated Diagnosis Comments CALCIUM, IONIZED Routine 11/07/2023 11:0 2 AM EST Other specified hypothyroidism documented in this encounter Results * Calcium, Ionized (11/07/2023 11:02 AM EST) Calcium, Ionized 5.0 4.7 - 5.5 mg/dL [facility] Comment:THIS TEST WAS PERFOR MED AT:[facility] [id number] [place] [id number] FRANKS MD 11/07/2023 11:0 2 AM EST 11/07/2023 11:46 AM EST us Generic External Data Provider LAB BLOOD ORDERAB LES Final Result [facility] [address] [place] [address] [phone] documented in this encounter Visit Diagnoses Diagnosis Other specified hypothyroidism- Primary documented in this encounter Additional Health Concerns Assessment Noted Time PHQ-9 Depression Total Score: 0 08/29/20 10:27 AM EDT documented as of this encounter Care Teams Prenatal Teacher Relationship Specialty Start Date End Date Chelsea Patel NP [address] [place] [address] PCP - General Family Medicine 08/29/23 documented as of this encounter
--- OUTSIDE RECORDS SUMMARY | 2024-12-06 08:33 | XMS_ITS | Encounter Summary ---
Author Organization [facility] Address [address] [place] [address] Phone Care Team Providers Care Rn Manager Name Role Phone Unavailable Primary Care Provider Unavailabl e Encounter Details Date Type Department Care Team (Late st Contact Info) Description 06/12/2017 Conversion Encounter [facility] - [address] [phone] Social History Tobacco Use Types Packs/Day Years [...]
--- OUTSIDE RECORDS SUMMARY | 2024-12-06 08:33 | XMS_ITS | Encounter Summary ---
Author Organization [employer] Address [address] [facility] 7t [place] [address] Care Team Providers Care Elementary Reading Specialist Name Role Phone Chelsea Patel NP Primary Care Provider [phone] Encounter Details Date Type Department Care Team (Late st Contact Info) Description 10/15/2023 Orders Only [facility] MEDICINE [address] [place] [address] Chelsea Patel NP [address] [place] [address] Parathyroid adenoma (Primary Dx) Social History Tobacco Use Types [...] t he electric, gas, oil or water [employer] threatened to shut off services in your [...] Description 12/10/2024 10:15 AM EST Office Visit [facility] MEDICINE [address] [place] [address] Chelsea Patel NP [address] [place] [address] Scheduled Orders Name Type Priority Associated Diagnoses Orde r Schedule PTH, Intact Without Calcium Lab Routine Parathyroid adenoma Expected: 10/15/2023, Expires: 10/15/2024 Calcium, Ionized Lab Routine Parathyroid adenoma Expected: 10/15/2023 (Approximate), Expires: 10/15/2024 documented as of this encounter Visit Diagnoses Diagnosis Parathyroid adenoma- Primary Benign neoplasm of parathyroid gland documented in this encounter Additional Health Concerns Assessment Noted Time PHQ-9 Depression Total Score: 0 08/29/20 10:27 AM EDT documented as of this encounter Care Teams Elementary Reading Specialist Relationship Specialty Start Date End Date Chelsea Patel NP [address] [place] [address] PCP - General Family Medicine 08/29/23 documented as of this encounter
--- OUTSIDE RECORDS SUMMARY | 2024-12-06 08:33 | XMS_ITS | Encounter Summary ---
Author Organization [facility] Address [address] [place] [phone] Phone Care Team Providers Care Director Camp Name Role Phone Unavailable Primary Care Provider Unavailabl e Encounter Details Date Type Department Care Team (Late st Contact Info) Description 06/11/2011 Documentation EM Family Medicine [address] [place] [address] Family Medicine, Physician [address] [place], [place] [phone] Social History Tobacco Use Types Packs/Day Years [...]
--- OUTSIDE RECORDS SUMMARY | 2024-12-06 08:33 | XMS_ITS | Encounter Summary ---
Author Organization [employer] Address [address] [facility] 7t [place] [address] Care Team Providers Care Active Directory Specialist Name Role Phone Chelsea Patel STAFFING MGR Primary Care Provider [phone] Reason for Visit * Reason Onset Date Comments Results 12/25/2023 Encounter Details Date Type Department Care Team ([facility] st Contact Info) Description 12/25/2023 Telephone [facility] [address] [place] [address] Chelsea Patel NP [address] [place] [address] Results Social History Tobacco Use Types Packs/Day Years [...] Telephone Encounter - Guillermo Harding RN - 12/25/2023 2:21 PM EST Please review below request and advise, result is in pt.'s chart. * Telephone Encounter - Tim Dobbins - 12/25/2023 8:33 AM EST TC from pt requesting call back regarding Results. Type of results: barium swallow Date when done: 12/10/23 Facility: [facility] documented in this encounter Plan of Treatment Upcoming Encounters Date Type Department Care Team (Late st Contact Info) Description 12/10/2024 10:15 AM EST Office Visit [facility] MED[facility] [address] [place] [address] Chelsea Patel NP [address] [place] [address] documented as of this encounter Visit Diagnoses Not on filedocumented in this encounter Additional Health Concerns Assessment Noted Time PHQ-9 Depression Total Score: 0 12/12/19 2:12 PM EST documented as of this encounter Care Teams Active Directory Specialist Relationship Specialty Start Date End Date Chelsea Patel NP [address] [place] [address] PCP - General Family Medicine 08/29/23 documented as of this encounter
--- OUTSIDE RECORDS SUMMARY | 2024-12-06 08:33 | XMS_ITS | Encounter Summary ---
Author Organization [facility] Address [address] [place] [address] Phone Care Team Providers Care Consulting Marine Engineer Name Role Phone Unavailable Primary Care Provider Unavailabl e Encounter Details Date Type Department Care Team (Late st Contact Info) Description 06/11/2011 Documentation EM Family Medicine [address] [place] [address] Family Medicine, Physician [address] [place], [place] [address] Social History Tobacco Use Types Packs/Day Years [...]
--- OUTSIDE RECORDS SUMMARY | 2024-12-06 08:33 | XMS_ITS | Encounter Summary ---
Author Organization [employer] Address [address] [facility] 7t [place] [address] Care Team Providers Care Electrotyper Apprentice Name Role Phone Chelsea Patel TELEPHONE CLERK TELEGRAPH OFFICE Primary Care Provider [phone] Reason for Visit * Reason Onset Date Comments Nurse Triage 11/19/2023 Encounter Details Date Type Department Care Team ([facility] st Contact Info) Description 11/19/2023 Telephone [facility] [address] [place] [address] Chelsea Patel NP [address] [place] [address] Nurse Triage Social History Tobacco Use Types [...] t he electric, gas, oil or water [employer] threatened to shut off services in your [...] Telephone Encounter - Guillermo Harding RN - 12/01/2023 1:25 PM EST FYI * Telephone Encounter - Jewell Hare RN - 12/01/2023 12:36 PM EST Triage call regarding Pt portal message below. Pt reports having muscle cramping and spasming whichhas increased recently. Pt reports last night when sleeping shoulder blade area began cramping and Pt woke up with stiff neck . Pt reports getting increased robert horses in backs of thighs and calves when bending over. Feet are cramping at times also. Levothyroxine 25mcg started 11/07/23 and Pt reports taking daily as prescribed. Pt reports this has been happening for the past 2 years and just recently increased. Pt does have apt with TELEPHONE CLERK TELEGRAPH OFFICE [employer] 12/12/23. Insurance is verified as active prior to booking. Pt is advised to seek assessment in ED if these symptoms continue to get worse before apt. Pt agrees with disposition and will go to ED if needed. Pt is advised that this triage will be sent to PCP also and Pt agreed with this plan. Protocol Used: Muscle Aches and Body Pain (Adult) Protocol-Based Disposition: See in Office or Video Visit within 2 Weeks Video visit not offered Positive Triage Question: * Muscle aches or body pains are a chronic symptom (recurrent or ongoing AND present > 4 weeks) * All higher-acuity triage questions were negative Care Advice Discussed: * Reassurance and Education - Mild Muscle Pain * Pain Medicines * Pain Medicines - Extra Notes and Warnings * Reasons To Call Back - Fever occurs - Pain lasts longer than 7 days - You become worse Hi Chelsea just reaching out about a concern I had brung up months ago but it never got attention and it???s only getting worse my muscles have been getting stuck and getting spasm all over the body anyway I move wrong a muscle lifts and it aches for days , I would like to see if blood work would beoption for this type of issues not sure if it has to do with my electrolytes or it???s deeper than that and has to do with the brain or thyroid , you would know more than I do , Would love to hear your thoughts or suggestions. * Telephone Encounter - Guillermo Harding RN - 11/19/2023 10:13 AM EST FYI T/C to pt. For below message , pt. Verbally agreed to come to [facility] for further evaluation. If having palpitations, she should come to the office for a SDC visit or at the [facility] to get an EKG and repeat Blood tests TSH and Electrolytes SABIHA. She should continue With the medication for now. * Telephone Encounter - Salomón Luong MD - 11/19/2023 9:55 AM EST If having palpitations, she should come to the office for a SDC visit or at the [facility] to get an EKG and repeat Blood tests TSH and Electrolytes SABIHA. She should continue With the medication for now. * Telephone Encounter - Angella Arthur RN - 11/19/2023 9:03 AM EST Call to Arturo Krishna reports since starting levothyroxine pt has had difficulty with staying asleep at night and having decreased appetite. Pt states sx onset was 4 days. Pt is taking 25mcg on an empty stomach. Per pt had palpitations first 2 days. None since. No nasuea, vomiting or diarrhea. Pt scheduled to see [facility] on 01/30/24, and barium swallow test on 12/10/23 at [facility]. Pt advised of disposition, prefers to have ordering provider Dr. Ag mcgarry and advise if same dose to be continue or if repeat lab work needed. Will send to ordering Provider Dr. Luong to further advise team nurses. Protocol Used: Insomnia (Adult) Protocol-Based Disposition: Home Care Override (Final) Disposition: Discuss with Provider and Callback by Nurse Today Override Reason: Other Override Notes: Recently started new med Positive Triage Question: * Difficulty falling to sleep or staying asleep * All higher-acuity triage questions were negative Care Advice Discussed: * Reassurance and Education - Dfficulty Sleeping * Tips for Good Sleep * Tips for Good Sleep - Your Bedroom * Reasons To Call Back - Insomnia symptoms persist over 2 weeks - You become worse * Telephone Encounter - Stephanie Watts - 11/19/2023 8:44 AM EST Symptom: Medication Reaction Outcome: Schedule an urgent appointment (within 1 hour) or talk to a nurse or provider soon Reason: pt states ever since taking levothyroxine (Tirosint) 25 MCG capsule, pt has experienced difficulty sleeping and eating The caller accepted this outcome Please contact pt at [phone] documented in this encounter Plan of Treatment Upcoming Encounters Date Type Department Care Team (Late st Contact Info) Description 12/10/2024 10:15 AM EST Office Visit [facility] [address] [place], [place] [phone] Chelsea Patel NP [address] [place], [place] [phone] documented as of this encounter Visit Diagnoses Not on filedocumented in this encounter Additional Health Concerns Assessment Noted Time PHQ-9 Depression Total Score: 0 08/29/20 23 10:27 AM EDT documented as of this encounter Care Teams Electrotyper Apprentice Relationship Specialty Start Date End Date Chelsea Patel NP [address] [place] [phone] PCP - General Family Medicine 08/29/23 documented as of this encounter
--- OUTSIDE RECORDS SUMMARY | 2024-12-06 08:33 | XMS_ITS | Encounter Summary ---
Author Organization [employer] Address [address] [facility] [address] [place] [address] Care Team Providers Care Auto Club Travel Counselor Name Role Phone Chelsea Patel GARDEN IMPLEMENT MECHANIC Primary Care Provider [phone] Reason for Visit * Reason Onset Date Comments Call Back Request 12/16/2023 Encounter Details Date Type Department Care Team ([facility] st Contact Info) Description 12/16/2023 Telephone [facility] [address] [place] [address] Chelsea Patel NP [address] [place] [address] Call Back Request Social History Tobacco Use Types Packs/Day [...] RN - 12/23/2023 9:01 AM EST Noted, Thanks * Telephone Encounter - Chelsea Patel NP - 12/22/2023 3:13 PM EST I spoken to the patient regarding this message. She is able to take 2 tabs until the current supplyis exhausted. Iron labs were also addressed during that call. Thank you * Telephone Encounter - Guillermo Harding RN - 12/17/2023 2:28 PM EST T/C to pt. For below message, pt. Has 25 mcg capsule at home, is it ok to take two capsule of 25 mcg to make total dose of 50 mcg? Also pt. States her iron is low. Is looking for advise. Please review and advise. Thanks. * Telephone Encounter - Stephanie Watts - 12/16/2023 2:30 PM EST Tc from pt calling to advise provider insurance will not cover levothyroxine (Tirosint) 50 MCG capsule due to 25 MCG being a 3 month supply and pt picked up prescription only a month ago. Please contact pt at [phone] documented in this encounter Plan of Treatment Upcoming Encounters Date Type Department Care Team (Late st Contact Info) Description 12/10/2024 10:15 AM EST Office Visit [facility] [address] [place] [address] Chelsea Patel NP [address] [place] [address] documented as of this encounter Visit Diagnoses Not on filedocumented in this encounter Additional Health Concerns Assessment Noted Time PHQ-9 Depression Total Score: 0 12/12/19 24 2:12 PM EST documented as of this encounter Care Teams Auto [employer] Travel Counselor Relationship Specialty Start Date End Date Chelsea Patel NP [address] [place] [address] PCP - General Family Medicine 08/29/23 documented as of this encounter
--- OUTSIDE RECORDS SUMMARY | 2024-12-06 08:34 | XMS_ITS | Encounter Summary ---
Author Organization [employer] Address [address] [facility] [address] [place] [address] Care Team Providers Care Lead Generation Representative Name Role Phone Chelsea Patel WASH AND GREASER Primary Care Provider [phone] Encounter Details Date Type Department Care Team (Late st Contact Info) Description 12/01/2024 Orders Only [facility] [address] [place] [address] Chelsea Patel NP [address] [place] [address] Social History Tobacco Use Types Packs/Day Years [...] Access Q2 Not on file 09/08/2024 Comments No Sex and Gender Information Value Date Recorded [...] Description 12/10/2024 10:15 AM EST Office Visit [facility] MEDICINE [address] [place] [address] Chelsea Patel NP [address] [place] [address] documented as of this encounter Visit Diagnoses Not on filedocumented in this encounter Additional Health Concerns Assessment Noted Time PHQ-9 Depression Total Score: 0 12/12/19 24 2:12 PM EST documented as of this encounter Care Teams Lead Generation Representative Relationship Specialty Start Date End Date Chelsea Patel NP [address] [place] [address] PCP - General Family Medicine 08/29/23 documented as of this encounter
--- OUTSIDE RECORDS SUMMARY | 2024-12-06 08:34 | XMS_ITS | Encounter Summary ---
Author Organization [employer] Address [address] [facility] [address] [place] [address] Care Team Providers Care Senior Information Security Architect Name Role Phone Chelsea Patel MACHINE WELDER Primary Care Provider [phone] Reason for Visit * Reason Onset Date Comments Med Refill 06/11/2024 Encounter Details Date Type Department Care Team ([facility] st Contact Info) Description 06/11/2024 Refill [facility] MEDICINE [address] [place] [address] Chelsea Patel NP [address] [place] [address] Anemia, unspecified type Social History Tobacco Use Types [...] Description 12/10/2024 10:15 AM EST Office Visit [facility] MEDICINE [address] [place] [id number] Chelsea Patel NP [address] [place] [address] documented as of this encounter Visit Diagnoses Diagnosis Anemia, unspecified type documented in this encounter Additional Health Concerns Assessment Noted Time PHQ-9 Depression Total Score: 0 12/12/19 24 2:12 PM EST documented as of this encounter Care Teams Senior Information Security Architect Relationship Specialty Start Date End Date Chelsea Patel NP [address] [place] [address] PCP - General Family Medicine 08/29/23 documented as of this encounter
--- OUTSIDE RECORDS SUMMARY | 2024-12-06 08:34 | XMS_ITS | Encounter Summary ---
Author Organization [employer] Address [address] [facility] [address] [place] [address] Care Team Providers Care Fitness Leader Name Role Phone Chelsea Patel FIXING CARPENTER Primary Care Provider [phone] Reason for Visit * Reason Onset Date Comments chartprep 11/30/2024 Encounter Details Date Type Department Care Team ([facility] st Contact Info) Description 11/30/2024 Telephone [facility] MEDICINE [address] [place] [address] Nicolle Chand MA chartprep Social History Tobacco Use Types Packs/Day Years [...] encounter Miscellaneous Notes * Telephone Encounter - Nicolle Chand MA - 11/30/2024 12:22 PM EST Chart Prep Labs: done Images: done Vaccines due: Covid Due and Flu Due Referrals: Completed Screenings: Not Applicable Overdue care gaps: Oral Health documented in this encounter Plan of Treatment Upcoming Encounters Date Type Department Care Team (Late st Contact Info) Description 12/10/2024 10:15 AM EST Office Visit [facility] MEDICINE [address] [place] [address] Chelsea Patel NP [address] [place] [address] documented as of this encounter Visit Diagnoses Not on filedocumented in this encounter Additional Health Concerns Assessment Noted Time PHQ-9 Depression Total Score: 0 12/12/19 24 2:12 PM EST documented as of this encounter Care Teams Fitness Leader Relationship Specialty Start Date End Date Chelsea Patel NP [address] [place] [address] PCP - General Family Medicine 08/29/23 documented as of this encounter
--- OUTSIDE RECORDS SUMMARY | 2024-12-06 08:34 | XMS_ITS | Clinical Summary ---
Author Organization [employer] Address [address] [facility] 7[address] [place] [address] Care Team Providers Care Interventional Tech Name Role Phone Chelsea Patel CHILDREN'S SERVICE WORKER Primary Care Provider [phone] Allergies No known active allergies Medications * This document contains information received from the source organization and may not represent a complete record from that organization. senna-docusate (Senokot S) 8.6-50 MG tablet Take 2 tablets by mouth at bed time. 06/07/20 22 Active hydrocortisone (Anusol-HC) 2.5 % rectal creamIndication s:Hemorrhoids, unspecified hemorrhoid type Insert into the rectum 2 times daily. 28 g 1 09/24/20 23 Active Additional Information Patient not taking.Reported on 09/08/2024 senna (Senokot) 8.6 MG tabletIndicatio ns:Constipation , unspecified constipation type Take 1 tablet (8.6 mg) by mouth at bedtime. 120 tablet 09/24/20 23 Active Additional Information Patient not taking.Reported on 09/08/2024 ferrous gluconate (Fergon) 324 (38 Fe) MG tabletIndicatio ns:Anemia, unspecified type Take 1 tablet by mouth every other morning with vitamin C 30 tablet 11 12/23/19 24 Active Ascorbic Acid (vitamin C) 250 MG tabletIndicatio ns:Anemia, unspecified type Take 1 tablet by mouth every other morning with iron tablet 30 tablet 11 12/23/19 24 Active esomeprazole (NexIUM) [address] capsuleIndicati ons:H. pylori infection Take 1 capsule (20 mg) by mouth 2 times daily for 14 days. Take with bismuth, tetracycline, and metronidazole. Do not open capsule. 28 capsule 01/05/20 24 Active ferrous sulfate 325 (65 Fe) MG tablet take 1 tablet by oral route every other day for iron deficiency anemia 06/07/20 22 Active Diclofenac Sodium 1 % gelIndications: Skin nodule Apply pea size amount to the rib area three times daily as needed 2 g 09/08/20 24 Active levothyroxine (Tirosint) 75 MCG capsuleIndicati ons:Hypothyroid ism, unspecified type Take 1 capsule (75 mcg) by mouth at bedtime. 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 30 tablet 1 12/03/19 25 2024 Active Tirosint 75 MCG capsuleIndicati ons:Hypothyroid ism, unspecified type TAKE ONE CAPSULE BY MOUTH EVERY EVENING AT BEDTIME ON AN EMPTY STOMACH 90 capsule 08/24/20 24 2024 Discontinued(R eorder (will not trigger notification to Pharmacy)) Active Problems Problem Noted Date Diagnosed Date Skin nodule 09/12/2024 Assessment & Plan (09/12/2024 1:08 PM EST): Two tender non-erythematous fixed palpable subcutaneous soft tissue nodule on the lower right rib area and sternum area Non elevated, tender to touch, circumscribed lesion No drainage, pus, or warmth Denies fever, nausea, or trauma Plan Apply pea size diclofenac cream to the area as needed for pain Bilateral view Xray of ribs Follow up with PCP Routine health maintenance 03/09/2024 Assessment & Plan (03/09/2024 1:01 PM EDT): -age appropriate screening and immunizations up to date STI screening -low cardiovascular risk -mental health screenings negative -healthy social behaviors encouraged -anticipatory guidance reviewed: diet, exercise Anxiety about health 12/23/2023 Assessment & Plan (03/09/2024 2:13 PM EDT): - clinician in to speak with patient. Suggested that patient discontinue use of myChart at this time -coping mechanisms provided Routine screening for STI (sexually transmitted infection) 12/12/2023 Assessment & Plan (03/09/2024 2:20 PM EDT): -patient agreeable to screening to determine HIV ans hepatitis status -labs ordered Hypothyroidism 12/12/2023 Assessment & Plan (03/09/2024 2:09 PM EDT): -uncontrolled TSH levels -Currently taking levothyroxine 25 mcg -orders placed to check current TSH -will adjust levothyroxine dose accordingly -has appointment on January 29 with [facility] endo for thyroid and lymph biopsy -will consider genetic testing given her family history of thyroid cancer Anemia 12/12/2023 Assessment & Plan (03/09/2024 2:11 PM EDT): -patient reports history of anemia and verbalizes symptoms -labs ordered to evaluate severity -will start iron supplementation with vitamin C every other day with lab test confirmation Other dysphagia 09/24/2023 Assessment & Plan (09/24/2023 4:57 PM EST): -may be due to enlarged thyroid -seen by ENT who suggests barium swallow -barium swallow ordered -GI referral placed Enlarged thyroid gland 09/24/2023 Assessment & Plan (09/24/2023 5:01 PM EST): -question Graves vs. Troy's thyroiditis -enlarged thyroid noted on US (09/22). No nodule -symptoms suggestive of hyperthyroid fx -labs on 08/29 indicate subclinical hypothyroid -thyroglobulin antibody >1000 (08/29) -difficulty swallowing, mildly tender on palpation -repeat TSH with reflex T4 -endocrine referral previously placed. Patient encouraged to call [facility] hx of thyroid cancer -will call with lab results. F/u 1 month for TP visit Constipation 09/24/2023 Assessment & Plan (09/24/2023 4:43 PM EST): -likely due to iron supplement -senna rx sent to pharmacy -increase fluids and intake of high fibrous foods -daily exercise Hemorrhoids 03/17/2023 Assessment & Plan (09/24/2023 4:57 PM EST): -maybe due to chronic constipation -tried OTC preparation H with no effects -topical cream rx sent to pharmacy -continue with warm soaks -GI referral Excessive sweating 03/17/2023 Allergic to dogs 03/17/2023 Iron deficiency anemia 03/14/2022 Assessment & Plan (09/16/2024 1:41 PM EST): Hemoglobin and Hematocrit 06/11/2024 9.4 & 30.6 was restarted on daily ferrous gluconate by PCP. Denies palpitation, headache, shortness of breath, chest pain or lightheadedness. Skin not pale. CBC to be repeated at this visit Plan Continue with your daily iron tablet Repeat CBC 09/08/2024 Assessment & Plan (09/10/2024 12:43 PM EST): -repeat CBC ordered to evaluate current anemia status -continue iron supplementation while labs pending Thyroid nodule 07/03/2021 Migraine 06/22/2015 Vitamin D deficiency 05/30/2015 Allergic rhinitis 06/11/2012 Resolved Problems Problem Noted Date Diagnosed Date Resolved Date Subclinical hypothyroidism 09/27/2014 0 06/11/2024 Encounters Date Type Department Care Team Description 12/03/2024 Orders Only [facility] [address] [place] [phone] Chelsea Patel NP 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 PA 12/01/2024 Orders Only [facility] [address] [place] [address] Chelsea Patel NP 11/30/2024 Refill [facility] [address] [place] [phone] Chelsea Patel NP Hypothyroidism, unspecified type 11/30/2024 Telephone [facility] [address] [place] [phone] Nicolle Chand MA chartprep 11/02/2024 Telephone [facility] [address] [place] [phone] Nicolle Chand MA chartprep 11/01/2024 Telephone [facility] [address] [place] [address] Tammy Moulton RNdrop count associate 09/09/2024 Orders Only [facility] [address] [place] [address] Melany Gay MA Skin nodule 09/08/2024 2:45 PM EST Office Visit [facility] [address] [place] [address] BettyAlexandra biggs, CARLOS Skin nodule (Primary Dx); Other iron deficiency anemia 09/06/2024 Telephone [facility] [address] [place], [place] [phone] Sagrario Rasheed MA CHART PREP from Last 3 Months Immunizations Name Administration Dates Next Due DTaP, 5 pertussis antigens 03/02/1998,,1993,11/26,1993 HPV, Bivalent 07/11/2008,08/27/2007 HPV, Quadrivalent 07/27/2012,07/11/2008,08/27/20 07 Hep B, Adolescent or Pediatric 07/26/1994,1993,1993 Hep B, adult 06/11/2024 Hib (HbO) 01/13/1995, 4,1993,07/26 IPV 01/13/1995, 4,1993,07/26 Influenza, Split (incl. irving fied surface antigen) 06/10/2011 MMR 03/02/1998,05/26/1994 Meningococcal MCV4P ACYW-135 01/23/2006 OPV 03/02/1998 TD (adult), 2 Lf tetanus tox oid, preservative free, adsorbed 01/10/2005 Tdap 11/29/2015 Family History Medical History Relation Name Comments Thyroid cancer Brother Thyroid nodules Father Relation Name Status Comments Brother Father Social History Tobacco Use Types Packs/Day Years Used Date Smoking Tobacco: Never Smokeless Tobacco: Never Tobacco Cessation:Counseling Given: Not Answered Depression Answer Date Recorded Patient Health Questionnaire-9 [...] or Jones 08/26/2022 10 :21 AM EDT Last Filed Vital Signs Vital Sign Reading Time Taken Comments Blood Pressure 102/64 09/08/2024 2:49 PM EST Pulse 85 09/08/2024 2:49 PM EST Temperature 36.5 ??C (97.7 ??F) 09/08/2024 2:49 PM ES T Respiratory Rate 18 09/08/2024 2:49 PM EST Oxygen Saturation 99% 09/08/2024 2:49 PM EST Inhaled Oxygen Concentration - - Weight 50.4 kg (111 lb 3.2 oz) 09/08/2024 2:49 P M EST Height 154.9 cm (5' 1 ) 09/08/2024 2:49 PM EST Body Mass Index 21.01 09/08/2024 2:49 PM EST Plan of Treatment Upcoming Encounters Date Type Department Care Team (Late st Contact Info) Description 12/10/2024 10:15 AM EST Office Visit [facility] [address] [place] [address] Chelsea Patel NP [address] [place] [address] Health Maintenance Due Date Last Done Comments Family Planning (PISQ) 2008 COVID-19 Vaccine ( season) 2024 Influenza Vaccine (#1) 2024 06/10/2011 Depression Screening 12/12/2024 12/12/2023, 12/12/19 24 Alcohol/Substance Use Screening 09/08/2025 09/08/2024 SDOH Screening 09/08/2025 09/08/2024 Tobacco Screening 09/08/2025 09/08/2024 DTaP/Tdap/Td Vaccines (7 - Td or Tdap) 11/29/2025 11/29/2015, 01/10/2005, 03/02/1998, Additional history exists Cervical Cancer Screening 12/03/2026 HPV/Cotest 12/03/2026 12/03/2021 Pap Smear 12/03/2026 12/03/2021 Zoster Vaccines (1 of 2) 2043 RSV Patients and Patients Aged 60 years or older (1 - 1-dose 75+ series) 2068 HIB Vaccines Completed 01/13/1995, 10/29, 1993, Additional history exists IPV Vaccines Completed 03/02/1998, 12/26, 1993, Additional history exists Meningococcal Vaccine Aged Out 01/23/2006 No jennifer macario eligible based on patient's age to complete this topic HPV Vaccines Completed 07/27/2012, 06/27, 07/11/2008, Additional history exists HIV Screening Completed 12/12/2023 Hepatitis C Screening Completed 12/12/2023 Hepatitis B Vaccines Completed 06/11/2024, 07/26/1994, 1993, Additional history exists Hepatitis A Vaccines Aged Out No long er eligible based on patient's age to complete this topic Pneumococcal Vaccine: Pediatrics (0 to 5 Years) and At-Risk Patients (6 to 49) Years) Aged Out No longer eligible based on patient's age to complete this topic RSV under 20 months Aged Out No longe r eligible based on patient's age to complete this topic Rotavirus Vaccines Aged Out No longer eligible based on patient's age to complete this topic Procedures Procedure Name Priority Date/Time Associated Diagnosis Comments CBC Routine 11/16/2024 8:43 AM EST Other iron deficiency anemia XR RIBS BILATERAL 4+ VW W PA CHEST Routine 09/08/2024 3:52 PM EST HEPATITIS C AB W/REFL TO HCV RNA, QN, PCR Routine 12/12/2023 3:38 PM EST Routine screening for STI (sexually transmitted infection) HIV 1/2 ANTIGEN/ANTIBODY, FOURTH GENERATION W/RFL Routine 12/12/2023 3:38 PM EST Routine screening for STI (sexually transmitted infection) HM PAP/HPV Routine 12/03/2021 from Last 3 Months or Most Recently Relevant to Health Maintenance Results * (ABNORMAL) CBC (11/16/2024 8:43 AM EST) White Blood Count 4.4(L) 4.8 - 10.8 X10*3/uL [facility] Red Blood Count 4.19(L) 4.20 - 5.50 X10*6/uL [facility] Hemoglobin 9.1(L) 12.0 - 16.0 g/dl [facility] Hematocrit 29.7(L) 37.0 - 47.0 % [facility] Mean Corpuscular Volume 70.9(L) 80.0 - 98.0 fL [facility] Mean Corpuscular Hemoglobin 21.7(L) 27.0 - 33.0 pg [facility] Mean Corpuscular HGB Conc 30.6(L) 31.0 - 35.0 g/dl [facility] Red Cell Distribution Width 17.1(H) 11.0 - 16.0 % [facility] Platelet Count 234 160 - 400 X10*3/uL [facility] Mean Platelet Volume 10.6 9.4 - 12.3 fL [facility] NRBC Pct Auto 0.0 0.0 - 0.2 /100WBC [facility] NRBC Abs Auto 0.000 0.0 - 0.012 X10*3/uL [facility] Blood Venous blood specimen / Unknown 11/16/2024 8:43 AM EST 11/16/2024 11:17 AM EST us Alexandra Bull REPAIRER KILN CAR LAB BLOOD ORDERABLES Final Res ult Performing Organization Address [facility] Co de Phone Number [facility] [address] [place] [address] [phone] * XR RIBS BILATERAL 4+ VW W PA CHEST (09/08/2024 3:52 PM EST) Anatomical Region Laterality Modality Rib, Abdomen Bilateral Radiographic Marika ging 09/08/2024 3:52 PM EST Narrative 09/09/2024 10:43 AM EST ?[facility] ?[address] ?[place] [address] ?XRay Report ? Signed ? Patient: Hou Krishna,Brendaliz ?MR#: ?? [id number] ? : 1995 ?Acct:[id number] ? Age/Sex: 29 / F ?ADM Date: 09/08/24 ? Loc: HO.HHCX ? Attending Dr: Alexandra Bull REPAIRER KILN CAR ? Ordering Physician: Alexandra Bull REPAIRER KILN CAR ?? Date of Service: 09/08/24 ?? Procedure(s): XR ribs BI min 4V w CXR1V ?? Accession Number(s): [id number] ? cc: BettyAlexandra biggs REPAIRER KILN CAR ? EXAMINATION: ?? XR RIBS, BILATERAL ? CLINICAL INFORMATION: ?? Tender subcutaneous fixed nodules ? COMPARISON: ?? February 2022. ? TECHNIQUE: ?? 3 views of the bilateral ribs were obtained. ? FINDINGS: ?? No evidence for airspace consolidation or pneumothorax. Hilar regions ?? and pulmonary vascularity unremarkable. Pleural surfaces appear to be ?? clear. ? No evidence for bony fractures. The cortical surfaces of the ribs ?? appear to be intact. There is no appreciable erosive process identified. ? XR/XR ribs BI min 4V w CXR1V ?? IMPRESSION: ?? No evidence for acute bony fracture seen on this evaluation. No erosive ?? lesions of bone identified. ? No airspace consolidations or effusions identified. ? Electronically signed by: ??Sage Francis MD ??09/09/2024 10:40 AM EST ? Dictated By: ?Sage Francis ? Signed By: ?<Electronically signed by Sage Francis in OV> ?09/09/24 1040 ? DD/ 1552 ? TD/TT: 09/08/24 1600 ? Label Drier: ? Procedure Note Angelika Mendez - 09/09/[address] [address] XRay Report Signed Patient: Arturo MolinaMR#: [id number] : 1995Acct:[id number] Age/Sex: 29 / FADM Date: 09/08/24 Loc: HO.HHCX Attending Dr: Alexandra Bull REPAIRER KILN CAR Ordering Physician: Alexandra Bull Date of Service: 09/08/24 Procedure(s): XR ribs BI min 4V w CXR1V Accession Number(s): [id number] cc: Alexandra Bull REPAIRER KILN CAR EXAMINATION: XR RIBS, BILATERAL CLINICAL INFORMATION: Tender subcutaneous fixed nodules COMPARISON: February 2022. TECHNIQUE: 3 views of the bilateral ribs were obtained. FINDINGS: No evidence for airspace consolidation or pneumothorax. Hilar regions and pulmonary vascularity unremarkable. Pleural surfaces appear to be clear. No evidence for bony fractures. The cortical surfaces of the ribs appear to be intact. There is no appreciable erosive process identified. XR/XR ribs BI min 4V w CXR1V IMPRESSION: No evidence for acute bony fracture seen on this evaluation. No erosive lesions of bone identified. No airspace consolidations or effusions identified. Electronically signed by: Sage Francis MD 09/09/2024 10:40 AM EST RP Dictated By: Sage Francis Signed By: <Electronically signed by Sage Francis in OV> 09/09/24 1040 DD/ 1552 TD/TT: 09/08/24 1600 Label Drier: us Alexandra Bull REPAIRER KILN CAR IMG XR PROCEDURES Final Result * Hepatitis C Antibody with Reflex to HCV, RNA, Quantitative, Real-Time PCR (12/12/2023 3:38 PM EST) Hepatitis C Antibody Nonreactive Nonreactive [facility] Comment:Antibodies to HCV no t detected; does not exclude early acuteHCV infection. Blood Venous blood specimen / Unknown 12/12/2023 3:38 PM EST 12/12/2023 4:17 PM EST Chelsea Patel NP LAB BLOOD ORDERABLES Final Resu lt [facility] [address] [place] [phone] * HIV-1/2 Antigen and Antibodies, Fourth Generation, with Reflexes (12/12/2023 3:38 PM EST) HIV AB/AG Nonreactive Nonreactive [facility] Comment:HIV-1 p24 Ag and/or HIV-1/HIV-2 Ab not detected.A test result that is nonreactive does not exclude thepossibility of exposure to or infection with HIV-1 and/orHIV-2. Nonreactive results in this assay for individualswith prior exposure to HIV-1 and/or HIV-2 may be due toantigen and antibody levels that are below the limit ofdetection of this assay.The Twitter HIV Ag/Ab Combo assay result andsupplemental assay results should be interpreted inconjunction with the patient's clinical presentation,history and other laboratory results. If the results areinconsistent with clinical evidence, additional testing issuggested to confirm the result. Blood Venous blood specimen / Unknown 12/12/2023 3:38 PM EST 12/12/2023 4:17 PM EST Chelsea Patel NP LAB BLOOD ORDERABLES Final Resu lt [facility] [address] [place] [address] [phone] * PAP/HPV (12/03/2021) Pap Negative for intraephithelial lesion or malignancy Negative for intraephithelial lesion or malignancy, Epithelial cell abnormality HPV Not Detected Undetected, Indeterminate, Quantitative, Not Detected Historical Provider HEALTH MAINTENANCE Final Result from Last 3 Months or Most Recently Relevant to Health Maintenance [facility] [employer] Care Teams Interventional Tech Relationship Specialty Start Date End Date Chelsea Patel NP [address] [place] [address] PCP - General Family Medicine 08/29/23
--- OUTSIDE RECORDS SUMMARY | 2024-12-06 08:34 | XMS_ITS | Encounter Summary ---
Author Organization [employer] Address [address] [facility] [address] [place] [address] Care Team Providers Care Machine Set Up Operator Paper Goods Name Role Phone Chelsea Patel PRODUCTION CONTROL MANAGER Primary Care Provider [phone] Reason for Visit * Reason Onset Date Comments Prior Authorization 11/01/2024 Encounter Details Date Type Department Care Team ([facility] st Contact Info) Description 11/01/2024 Telephone [facility] [address] [place] [address] Tammy Moulton RNmachine fur cleaner Social History Tobacco Use Types Packs/Day Years [...] encounter Miscellaneous Notes * Telephone Encounter - Rebecca Ca - 12/03/2024 1:45 PM EST PA denied for Levothyroxine; Denial scanned into media. Please review and advise if wish to appeal and provide additional information. Thank you * Telephone Encounter - Homer Moreno - 11/16/2024 11:12 AM EST Tc from pt calling in regards to message prior stating the PA for Levothyroxine was denied due to not having enough information. If any questions you can contact pt at [phone]. * Telephone Encounter - Antonino Matthew RN - 11/11/2024 10:02 AM EST PA for tirosint [facility] Confirmation received and sent to scan. If patient calls to check status on above, please advise them to contact [facility] at [phone]. * Telephone Encounter - Rebecca Ca - 11/05/2024 3:46 PM EST PA generated and sent to provider for review and signature via [employer]. * Telephone Encounter - Tammy Moulton RN - 11/01/2024 2:38 PM EST Pt sent a message to the portal stating I received a letter from my insurance that my levothyroxine will no longer be covered by my insurance not sure if there???s another brand that may cover not sure how it works just wanted to reach out before my refill and make sure I???m able to get my medication. [facility] reports that the pt received that letter due to [facility] would like for the capsule form to be switched to tablet. [facility] who reports that the medication is not under their covered meds and PA will need to completed for the next refill. Pt will not bedue for a refill until 11/24/24 and rx is still active. Tc to pt to let them know the plan, no answer, lvm to return call and ask to speak to [facility] nurses.PA request sent to [facility] specialist pool. documented in this encounter Plan of Treatment Upcoming Encounters Date Type Department Care Team (Late st Contact Info) Description 12/10/2024 10:15 AM EST Office Visit [facility] [address] [place] [address] Chelsea Patel NP [address] [place] [address] documented as of this encounter Visit Diagnoses Not on filedocumented in this encounter Additional Health Concerns Assessment Noted Time PHQ-9 Depression Total Score: 0 12/12/19 24 2:12 PM EST documented as of this encounter Care Teams Machine Set Up Operator Paper Goods Relationship Specialty Start Date End Date Chelsea Patel NP [address] [place] [address] PCP - General Family Medicine 08/29/23 documented as of this encounter
--- OUTSIDE RECORDS SUMMARY | 2024-12-06 08:34 | XMS_ITS | Encounter Summary ---
Author Organization [employer] Address [address] [facility] [address] [place] [address] Care Team Providers Care Pole Peeling Machine Operator Name Role Phone Chelsea Patel CAREER DEVELOPMENT MANAGER Primary Care Provider [phone] Reason for Visit * Reason Onset Date Comments Med Refill 11/30/2024 Encounter Details Date Type Department Care Team ([facility] st Contact Info) Description 11/30/2024 Refill [facility] [address] [place] [address] Chelsea Patel NP [address] [place] [address] Hypothyroidism, unspecified type Social History Tobacco Use [...] encounter Miscellaneous Notes * Telephone Encounter - Martina Garcia RN - 12/01/2024 9:48 AM EST TC placed to pt to confirm what letter states about medication. Pt states she received a letter that the Tirosint will no longer be covered by insurance and to contact provider for an alternative. Ptstates the letter did not provide any alternative options. Pt states she is on her last pack and needs a refill on levothyroxine as soon as possible. Message sent to PCP to review and advise. documented in this encounter Plan of Treatment Upcoming Encounters Date Type Department Care Team (Late st Contact Info) Description 12/10/2024 10:15 AM EST Office Visit [facility] [address] [place] [address] Chelesa Patel NP [address] [place] [address] documented as of this encounter Visit Diagnoses Diagnosis Hypothyroidism, unspecified type documented in this encounter Additional Health Concerns Assessment Noted Time PHQ-9 Depression Total Score: 0 12/12/19 24 2:12 PM EST documented as of this encounter Care Teams Pole Peeling Machine Operator Relationship Specialty Start Date End Date Chelsea Patel NP [address] [place] [address] PCP - General Family Medicine 08/29/23 documented as of this encounter
--- OUTSIDE RECORDS SUMMARY | 2024-12-06 08:34 | XMS_ITS | Encounter Summary ---
Author Organization [employer] Address [address] [facility] 7t [place] [address] Care Team Providers Care Gas Analyst Name Role Phone Chelsea Patel LAUNDRY ATTENDANT Primary Care Provider [phone] Reason for Visit * Reason Onset Date Comments MedNazario PA 12/03/2024 Encounter Details Date Type Department Care Team ([facility] st Contact Info) Description 12/03/2024 Telephone [facility] [address] [place] [address] Chelsea Patel NP [address] [place] [address] MedNazario PA Social History Tobacco Use Types Packs/Day Years [...] t he electric, gas, oil or water [employer] threatened to shut off services in your [...] Telephone Encounter - Martina Garcia RN - 12/03/2024 4:40 PM EST TC placed to pt regarding medication request for levyothyroxine (Tirosint) (see patient portal messages from 11/01/2024). Medication was denied for a PA on 11/11/24. Provider re-sent medication and wereceived notification that a PA is required. RN spoke to Chelsea Patel NP as pt states she is low on medication. Chelsea Patel NP states she will send orders to lab for pt to have labs drawn tomorrow 12/04/24. Provider requesting the pt call insurance company to determine why medication would no longer be covered. When RN called pt, no answer. LVM to call office back and ask to speak to [employer] [facility]. Message forwarded to provider. * Telephone Encounter - Caitlyn Brower - 12/03/2024 2:13 PM EST Tc from pharmacy states PA needed for levothyroxine (Tirosint) 75 MCG capsule. documented in this encounter Plan of Treatment Upcoming Encounters Date Type Department Care Team (Late st Contact Info) Description 12/10/2024 10:15 AM EST Office Visit [facility] [address] [place] [address] Chelsea Patel NP [address] [place] [address] documented as of this encounter Visit Diagnoses Not on filedocumented in this encounter Additional Health Concerns Assessment Noted Time PHQ-9 Depression Total Score: 0 12/12/19 24 2:12 PM EST documented as of this encounter Care Teams Gas Analyst Relationship Specialty Start Date End Date Chelsea Patel NP [address] [place] [address] PCP - General Family Medicine 08/29/23 documented as of this encounter
--- OUTSIDE RECORDS SUMMARY | 2024-12-06 08:34 | XMS_ITS | Encounter Summary ---
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 She is stronglyencouraged to have labs drawn at [facility] tomorrow morning to assess current level as her last TSH was from 05/2024. A new prescription for synthroid will be sent to the pharmacy. Patient verbalizes understanding and is reminded of upcoming appointment on 12/10 @ 10:15 am. documented in this encounter Plan of Treatment Upcoming Encounters Date Type Department Care Team ([facility] st Contact Info) Description 12/10/2024 10:15 AM EST Office Visit [facility] MED[facility] [address] [place] [address] Chelsea Patel NP [address] [place] [address] Scheduled Orders Name Type Priority Associated Diagnoses Orde r Schedule TSH W/Reflex to FT4 Lab Routine 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 Expected: 12/03/2024 (Approximate), Expires: 12/03/2025 documented as of this encounter Visit Diagnoses Diagnosis 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- Primary documented in this encounter Additional Health Concerns Assessment Noted Time PHQ-9 Depression Total Score: 0 12/12/19 24 2:12 PM EST documented as of this encounter Care Teams Housekeeping/Laundry Relationship Specialty Start Date End Date Chelsea Patel NP [address] [place] [address] PCP - General Family Medicine 08/29/23 documented as of this encounter
[2024-12-06 11:47] LABS: TSH reflex Free T4 5.71 uIU/mL (0.32-4.0)
[2024-12-06 12:28] LABS: Free T4 (Free Thyroxine) 1.12 ng/dL (0.71-1.85)
== END 2024-12-06 08:20 | disposition home or self-care (01) ==
LOC: HO.HHCL 08:19
PROVIDERS: Visit Provider Nurse Practitioner
DX: E06.3 Autoimmune thyroiditis (principal)
CPT/HCPCS: 36415; 84439; 84443

== ENCOUNTER 2025-01-11 08:26 | Outpatient (REF) | payer MEDICAID, SELFPAY ==
--- OUTSIDE RECORDS SUMMARY | 2025-01-11 08:39 | XMS_ITS | Encounter Summary ---
Author Organization [employer] Address 75 [facility] 7t [place] [address] Care Team Providers Care Manager Of Procurement Name Role Phone Chelsea Patel NP Primary Care Provider [phone] Encounter Details Date Type Department Care Team (Late st Contact Info) Description 10/15/2023 Orders Only [facility] [address] [place] [address] Chelsea Patel NP [address] [place] [address] Parathyroid adenoma (Primary Dx) Social History Tobacco [...] t he electric, gas, oil or water [employer] threatened to shut off services in your [...] Care Team (Late st Contact Info) Description 04/08/2025 10:15 AM EDT Office Visit [facility] [address] [place] [address] Chelsea Patel NP [address] [place] [address] Scheduled Orders Name Type Priority Associated Diagnoses [...] documented as of this encounter Care Teams Manager Of Procurement Relationship Specialty Start Date End Date Chelsea Patel NP [address] [place] [address] PCP - General Family Medicine 08/29/23 documented as of this encounter
--- OUTSIDE RECORDS SUMMARY | 2025-01-11 08:39 | XMS_ITS | Encounter Summary ---
Author Organization [employer] Address 75 [facility] 7t [place] [address] Care Team Providers Care Information Technology Security Manager Name Role Phone Chelsea Patel NP Primary Care Provider [phone] Encounter Details Date Type Department Care Team (Late st Contact Info) Description 01/04/2025 Telephone [facility] [address] [place] [address] Chelsea Patel NP [address] [place] [address] Social History Tobacco Use Types Packs/Day Years [...] encounter Miscellaneous Notes * Telephone Encounter - Caitlyn Watts - 01/04/2025 9:43 AM EDT T/c to patient to book appointment by recall list. Patient agreed with the outcome and is ok with her to come on 04/08/25 @ 10:15. documented in this encounter Plan of Treatment Upcoming Encounters Date Type Department Care Team (Late st Contact Info) Description 04/08/2025 10:15 AM EDT Office Visit [facility] [address] [place] [address] Chelsea Patel NP [address] [place] [address] documented as of this encounter Visit Diagnoses Not on filedocumented in this encounter Additional Health Concerns Assessment Noted Time PHQ-9 Depression Total Score: 0 12/12/19 24 2:12 PM EST documented as of this encounter Care Teams Information Technology Security Manager Relationship Specialty Start Date End Date Chelsea Patel NP [address] [place] [address] PCP - General Family Medicine 08/29/23 documented as of this encounter
--- OUTSIDE RECORDS SUMMARY | 2025-01-11 08:40 | XMS_ITS | Encounter Summary ---
Author Organization [employer] Address 75 [facility] 7t [place] [address] Care Team Providers Care Signal Constructor Name Role Phone Chelsea Patel NP Primary Care Provider [phone] Encounter Details Date Type Department Care Team (Late st Contact Info) Description 01/10/2025 Orders Only [facility] MED[facility]INE [address] [place] [address] Chelsea Patel NP 230 [place] [address] 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) [...] Description 04/08/2025 10:15 AM EDT Office Visit [facility] MED[facility]INE [address] [place] [address] Chelsea Patel NP [address] [place] [address] Scheduled Orders Name Type Priority Associated Diagnoses Orde r Schedule TSH W/Reflex to FT4 Lab Routine 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 Expected: 01/10/2025 (Approximate), Expires: 01/10/2026 documented as of this encounter Visit Diagnoses Diagnosis 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- Primary documented in this encounter Additional Health Concerns Assessment Noted Time PHQ-9 Depression Total Score: 0 12/12/19 24 2:12 PM EST documented as of this encounter Care Teams Signal Constructor Relationship Specialty Start Date End Date Chelsea Patel NP [address] [place] [address] PCP - General Family Medicine 08/29/23 documented as of this encounter
--- OUTSIDE RECORDS SUMMARY | 2025-01-11 08:40 | XMS_ITS | Encounter Summary ---
Author Organization [employer] Address 75 [facility] 7t [place] [address] Care Team Providers Care Photograph Inspector Name Role Phone Chelsea Patel PLATFORM STAPLER Primary Care Provider [phone] Reason for Visit * Reason Onset Date Comments Medication Question 12/16/2023 Encounter Details Date Type Department Care Team ([facility] st Contact Info) Description 12/16/2023 Telephone [facility]INE [address] [place] [address] Chelsea Patel NP [address] [place] [address] Medication Question Social History Tobacco Use Types [...] t he electric, gas, oil or water [employer] threatened to shut off services in your [...] Description 04/08/2025 10:15 AM EDT Office Visit [facility] [address] [place] [address] Chelsea Patel NP [address] [place] [address] documented as of this encounter Visit Diagnoses Not on filedocumented in this encounter Additional Health Concerns Assessment Noted Time PHQ-9 Depression Total Score: 0 12/12/19 24 2:12 PM EST documented as of this encounter Care Teams Photograph Inspector Relationship Specialty Start Date End Date Chelsea Patel NP [address] [place] [address] PCP - General Family Medicine 08/29/23 documented as of this encounter
--- OUTSIDE RECORDS SUMMARY | 2025-01-11 08:40 | XMS_ITS | Encounter Summary ---
Author Organization [facility] Address [address] [place] [address] Phone Care Team Providers Care Thread Separator Name Role Phone Unavailable Primary Care Provider Unavailabl e Encounter Details Date Type Department Care Team (Late st Contact Info) Description 06/11/2011 Documentation [facility] Family [facility] [address] [place] [address] Family Medicine, Physician [address] [place], [place] [id number] Social History Tobacco Use Types Packs/Day Years [...]
--- OUTSIDE RECORDS SUMMARY | 2025-01-11 08:40 | XMS_ITS | Encounter Summary ---
Author Organization [employer] Address [address] [facility] 7t [place] [address] Care Team Providers Care Meteorologist In Charge Name Role Phone Chelsea Patel CIGARETTE PACKAGE EXAMINER Primary Care Provider [phone] Reason for Visit * Reason Onset Date Comments Medication Question 01/27/2024 Encounter Details Date Type Department Care Team ([facility] st Contact Info) Description 01/27/2024 Telephone [facility] MEDICINE [address] [place] [address] Chelsea Patel NP [address] [place] [address] Medication Question Social History Tobacco Use Types [...] t he electric, gas, oil or water [employer] threatened to shut off services in your [...] antibiotics before biopsy. Please contact pt at [phone]. documented in this encounter Plan of Treatment Upcoming Encounters Date Type Department Care Team (Late st Contact Info) Description 04/08/2025 10:15 AM EDT Office Visit [facility] MEDICINE [address] [place] [address] Chelsea Patel NP [address] [place] [address] documented as of this encounter Visit Diagnoses Not on filedocumented in this encounter Additional Health Concerns Assessment Noted Time PHQ-9 Depression Total Score: 0 12/12/19 24 2:12 PM EST documented as of this encounter Care Teams Meteorologist In Charge Relationship Specialty Start Date End Date Chelsea Patel NP [address] [place] [address] PCP - General Family Medicine 08/29/23 documented as of this encounter
--- OUTSIDE RECORDS SUMMARY | 2025-01-11 08:40 | XMS_ITS | Encounter Summary ---
Author Organization [facility] Address [address] [place] [address] Phone Care Team Providers Care Software Application Tester Name Role Phone Unavailable Primary Care Provider Unavailabl e Encounter Details Date Type Department Care Team (Late st Contact Info) Description 06/11/2011 Documentation [facility] Family Medicine [address] [place] [address] Family Medicine, Physician [address] [place], [place] [id number] Social History Tobacco Use Types Packs/Day Years [...]
--- OUTSIDE RECORDS SUMMARY | 2025-01-11 08:40 | XMS_ITS | Encounter Summary ---
Author Organization [employer] Address [address] [facility] 7t [place] [address] Care Team Providers Care Resin Maker Name Role Phone Chelsea Patel CYLINDER GRINDER Primary Care Provider [phone] Reason for Visit * Reason Onset Date Comments New Med Request 12/22/2023 Encounter Details Date Type Department Care Team ([facility] st Contact Info) Description 12/22/2023 Telephone [facility] [address] [place] [address] Chelsea Patel NP [address] [place] [address] New Med Request Social History Tobacco Use [...] Description 04/08/2025 10:15 AM EDT Office Visit [facility] [address] [place] [address] Chelsea Patel NP [address] [place] [address] documented as of this encounter Visit Diagnoses Not on filedocumented in this encounter Additional Health Concerns Assessment Noted Time PHQ-9 Depression Total Score: 0 12/12/19 24 2:12 PM EST documented as of this encounter Care Teams Resin Maker Relationship Specialty Start Date End Date Chelsea Patel NP [address] [place] [address] PCP - General Family Medicine 08/29/23 documented as of this encounter
--- OUTSIDE RECORDS SUMMARY | 2025-01-11 08:40 | XMS_ITS | Clinical Summary ---
Author Organization [facility] Address [address] [place] [address] Phone Care Team Providers Care Handle Machine Operator Name Role Phone Unavailable Primary Care [...]
--- OUTSIDE RECORDS SUMMARY | 2025-01-11 08:40 | XMS_ITS | Encounter Summary ---
Author Organization [facility] Address [address] [place] [address] Phone Care Team Providers Care Architectural Renderer Name Role Phone Unavailable Primary Care Provider Unavailabl e Encounter Details Date Type Department Care Team (Late st Contact Info) Description 07/25/2011 Documentation EM Family Medicine [address] [place] [address] Family Medicine, Physician [address] [place], [place] [id number] Social History Tobacco Use Types Packs/Day Years [...]
--- OUTSIDE RECORDS SUMMARY | 2025-01-11 08:40 | XMS_ITS | Encounter Summary ---
Author Organization [employer] Address [address] [facility] 7t [place] [address] Care Team Providers Care Supervisor [employer] Name Role Phone Chelsea Patel CONSTRUCTION SUPERVISOR/CARPENTER Primary Care Provider [phone] Reason for Visit * Reason Onset Date Comments Call Back Request 12/16/2023 Encounter Details Date Type Department Care Team ([facility] st Contact Info) Description 12/16/2023 Telephone [facility] MEDICINE [address] [place] [address] Chelsea Patel NP [address] [place] [address] Call Back Request Social History Tobacco Use [...] a month ago. Please contact pt at [phone] documented in this encounter Plan of Treatment Upcoming Encounters Date Type Department Care Team (Late st Contact Info) Description 04/08/2025 10:15 AM EDT Office Visit [facility] MED[facility]INE [address] [place] [address] Chelsea Patel NP [address] [place] [address] documented as of this encounter Visit Diagnoses Not on filedocumented in this encounter Additional Health Concerns Assessment Noted Time PHQ-9 Depression Total Score: 0 12/12/19 24 2:12 PM EST documented as of this encounter Care Teams Supervisor [employer] Relationship Specialty Start Date End Date Chelsea Patel NP [address] [place] [address] PCP - General Family Medicine 08/29/23 documented as of this encounter
--- OUTSIDE RECORDS SUMMARY | 2025-01-11 08:40 | XMS_ITS | Clinical Summary ---
Author Organization [employer] Address [address] [facility] 7t [place] [address] Care Team Providers Care Channeler Insole Name Role Phone Chelsea Patel OCTAVIO Primary Care Provider [phone] Allergies No known active allergies Medications * This document contains information received from the source organization and may not represent a complete record from that organization. senna-docusate (Senokot S) 8.6-50 MG tablet Take 2 tablets by mouth at bed time. 2 Active hydrocortisone (Anusol-HC) 2.5 % rectal creamIndications :Hemorrhoids, unspecified hemorrhoid type Insert into the rectum 2 times daily. 28 g 1 3 Active Additional Information Patient not taking.Reported on 09/08/2024 senna (Senokot) 8.6 MG tabletIndication s:Constipation, unspecified constipation type Take 1 tablet (8.6 mg) by mouth at bedtime. 120 tablet 3 Active Additional Information Patient not taking.Reported on 09/08/2024 ferrous gluconate (Fergon) 324 (38 Fe) MG tabletIndication s:Anemia, unspecified type Take 1 tablet by mouth every other morning with vitamin C 30 tablet 11 4 Active Ascorbic Acid (vitamin C) 250 MG tabletIndication s:Anemia, unspecified type Take 1 tablet by mouth every other morning with iron tablet 30 tablet 11 4 Active esomeprazole (NexIUM) [address] capsuleIndicatio ns:H. pylori infection Take 1 capsule (20 mg) by mouth 2 times daily for 14 days. Take with bismuth, tetracycline, and metronidazole. Do not open capsule. 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 Take med 60 mins apart from last meal 30 tablet 1 5 02/05/20 25 Active ciclopirox (Penlac) 8 % solutionIndicati ons:Onychomycosi s Apply topically at bedtime. 6 mL 1 5 Active Active Problems Problem Noted Date Diagnosed Date [...] accordingly -has appointment on January 29 with [facility] for thyroid and lymph biopsy -will consider [...] referral previously placed. Patient encouraged to call [facility] -fam hx of thyroid cancer -will call with [...] Encounters Date Type Department Care Team Description 01/10/2025 Orders Only [facility] [address] 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 [address] Chelsea Patel NP 12/10/2024 10:15 AM EST Office Visit [facility] [address] [place] [address] Chelsea Patel NP Onychomycosis (Primary Dx) 12/10/2024 Travel 12/06/2024 Orders Only [facility] [address] [facility] [place] [id number] Chelsea Patel NP 12/03/2024 Orders Only [facility] [address] 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 [address] Chelsea Patel NP Med. 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) 11/30/2024 Refill [facility] [address] [place] [address] AppramChelsea, TEACHER KINDERGARTEN Hypothyroidism, unspecified type 11/30/[address] [address] Nicolle Chand MA chartprep 11/02/[address] [address] Nicolle Chand MA chartprep 11/01/[address] [address] Tammy Moulton RNribbon sweatband operator from Last 3 Months Immunizations Name Administration Dates Next Due DTaP, 5 pertussis antigens 03/02/1998,,1993,11/26,1993 HPV, Bivalent 07/11/2008,08/27/2007 HPV, Quadrivalent 07/27/2012,07/11/2008,08/27/20 07 Hep B, Adolescent or Pediatric 07/26/1994,1993,1993 Hep B, adult 06/11/2024 Hib ([facility]) 01/13/1995, 4,1993,07/26 IPV 01/13/1995, 4,1993,07/26 Influenza, Split [...] Sign Reading Time Taken Comments Blood Pressure 112/68 12/10/2024 10:31 AM EST Pulse 98 12/10/2024 10:31 AM EST Temperature 37.3 ??C (99.1 ??F) 12/10/2024 10:[address] Respiratory Rate 18 12/10/2024 10:31 AM EST Oxygen Saturation 99% 12/10/2024 10:31 AM EST Inhaled Oxygen Concentration - - Weight 52.6 kg (116 lb) 12/10/2024 10:31 AM EST Height 154.9 cm (5' 1 ) 09/08/2024 2:49 PM EST Body Mass Index 21.92 09/08/2024 2:49 PM EST Plan of Treatment Upcoming Encounters Date Type Department Care Team (Late st Contact Info) Description 04/08/2025 10:15 AM EDT Office Visit [facility] [address] [place] [address] Chelsea Patel NP [address] [place], [place] [phone] Health Maintenance Due Date Last Done Comments [...] Procedure Name Priority Date/Time Associated Diagnosis Comments T4, FREE Routine 12/06/2024 8:21 AM EST TSH W/REFLEX TO FT4 Routine 12/06/2024 8 :21 AM EST 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 CBC Routine 11/16/2024 8:43 AM EST Other iron deficiency anemia HEPATITIS C AB W/REFL TO HCV RNA, QN, PCR Routine 12/12/2023 3:38 PM EST Routine screening for STI (sexually transmitted infection) HIV 1/2 ANTIGEN/ANTIBODY, FOURTH GENERATION W/RFL Routine 12/12/2023 3:38 PM EST Routine screening for STI (sexually transmitted infection) HM PAP/HPV Routine 12/03/2021 from Last 3 Months or Most Recently Relevant to Health Maintenance Results * (ABNORMAL) TSH W/Reflex to FT4 (12/06/2024 8:21 AM EST) TSH reflex Free T4 5.71(H) 0.32 - 4.0 uIU/mL [facility] Blood Venous blood specimen / Unknown 12/06/2024 8:21 AM EST 12/06/2024 11:06 AM EST us Chelsea Patel NP LAB BLOOD ORDERABLES Final Resu lt [facility] [address] [place] [phone] * T4, Free (12/06/2024 8:21 AM EST) Free T4 (Free Thyroxine) 1.12 0.71 - 1.85 ng/dL [facility] 12/06/2024 8:21 AM EST 12/06/2024 11:06 AM EST us Chelsea Mihaelam TEACHER KINDERGARTEN LAB BLOOD ORDERABLES Final Resu lt [facility] [address] [place] [phone] * (ABNORMAL) CBC (11/16/2024 8:43 AM EST) [facility] White Blood Count 4.4(L) 4.8 - 10.8 X10*3/uL [facility] Red Blood Count 4.19(L) 4.20 - 5.50 X10*6/uL [facility] Hemoglobin 9.1(L) 12.0 - 16.0 g/dl [facility] Hematocrit 29.7(L) 37.0 - 47.0 % [facility] Mean Corpuscular Volume 70.9(L) 80.0 - 98.0 fL [facility] Mean Corpuscular Hemoglobin 21.7(L) 27.0 - 33.0 pg [facility] Mean Corpuscular HGB Conc 30.6(L) 31.0 - 35.0 g/dl [facility] Red Cell Distribution Width 17.1(H) 11.0 - 16.0 % [facility] Platelet Count 234 160 - 400 X10*3/uL [facility] Mean Platelet Volume 10.6 9.4 - 12.3 fL [facility] NRBC Pct Auto 0.0 0.0 - 0.2 /100WBC [facility] NRBC Abs Auto 0.000 0.0 - 0.012 X10*3/uL [facility] Blood Venous blood specimen / Unknown 11/16/2024 8:43 AM EST 11/16/2024 11:17 AM EST Alexandra Bull CLOTHES SHAKER LAB BLOOD ORDERABLES Final Res ult Performing Organization Address [facility] Co de Phone Number [facility] [address] [place] [phone] * Hepatitis C Antibody with Reflex to HCV, RNA, Quantitative, Real-Time PCR (12/12/2023 3:38 PM EST) Hepatitis C Antibody Nonreactive Nonreactive [facility] Comment:Antibodies to HCV no t detected; does not exclude early acuteHCV infection. Blood Venous blood specimen / Unknown 12/12/2023 3:38 PM EST 12/12/2023 4:17 PM EST Chelsea Patel TEACHER KINDERGARTEN LAB BLOOD ORDERABLES Final Resu lt Performing Organization Address [facility] de Phone Number [facility] [address] [place] [phone] * HIV-1/2 Antigen and Antibodies, Fourth Generation, with Reflexes (12/12/2023 3:38 PM EST) HIV AB/AG Nonreactive Nonreactive [facility] Comment:HIV-1 p24 Ag and/or HIV-1/HIV-2 Ab not detected.A test result that is nonreactive does not exclude thepossibility of exposure to or infection with HIV-1 and/orHIV-2. Nonreactive results in this assay for individualswith prior exposure to HIV-1 and/or HIV-2 may be due toantigen and antibody levels that are below the limit ofdetection of this assay.The [employer] HIV Ag/Ab Combo assay result andsupplemental assay results should be interpreted inconjunction with the patient's clinical presentation,history and other laboratory results. If the results areinconsistent with clinical evidence, additional testing issuggested to confirm the result. Blood Venous blood specimen / Unknown 12/12/2023 3:38 PM EST 12/12/2023 4:17 PM EST Chelsea Patel TEACHER KINDERGARTEN LAB BLOOD ORDERABLES Final Resu lt [facility] [address] [place] [phone] * HM PAP/HPV (12/03/2021) Pap Negative for intraephithelial lesion or malignancy Negative for intraephithelial lesion or malignancy, Epithelial cell abnormality HPV Not Detected Undetected, Indeterminate, Quantitative, Not Detected Historical Provider MD HEALTH MAINTENANCE Final Result from Last 3 Months or Most Recently Relevant to Health Maintenance Insurance [employer] C[employer] Care Teams Channeler Insole Relationship Specialty Start Date End Date Chelsea Patel NP [address] [place] [address] PCP - General Family Medicine 08/29/23
--- OUTSIDE RECORDS SUMMARY | 2025-01-11 08:40 | XMS_ITS | Encounter Summary ---
Author Organization [employer] Address [address] [facility] 7t [place] [address] Care Team Providers Care Record Retrieval Specialist Name Role Phone Chelsea Patel REFRIGERATION REPAIR SUPERVISOR Primary Care Provider [phone] Reason for Visit * Reason Onset Date Comments Nurse Triage 11/19/2023 Encounter Details Date Type Department Care Team ([facility] st Contact Info) Description 11/19/2023 Telephone [facility] [address] [place] [address] Chelsea Patel NP [address] [place] [address] Nurse Triage Social History Tobacco Use Types [...] t he electric, gas, oil or water [employer] threatened to shut off services in your [...] recently increased. Pt does have apt with REFRIGERATION REPAIR SUPERVISOR [employer] 12/12/23. Insurance is verified as active [...] , pt. Verbally agreed to come to [facility] for further evaluation. If having palpitations, she should come to the office for a SDC visit or at the [facility] to get an EKG and repeat Blood tests TSH and Electrolytes SABIHA. She should continue With the medication for now. * Telephone Encounter - Salomón Luong MD - 11/19/2023 9:55 AM EST If having palpitations, she should come to the office for a SDC visit or at the [facility] to get an EKG and repeat Blood [...] and barium swallow test on 12/10/23 at [facility]. Pt advised of disposition, prefers to have [...] accepted this outcome Please contact pt at [phone] documented in this encounter Plan of Treatment Upcoming Encounters Date Type Department Care Team (Late st Contact Info) Description 04/08/2025 10:15 AM EDT Office Visit [facility] [address] [place] [address] Chelsea Patel NP [address] [place], [place] [phone] documented as of this encounter Visit Diagnoses Not on filedocumented in this encounter Additional Health Concerns Assessment Noted Time PHQ-9 Depression Total Score: 0 08/29/20 23 10:27 AM EDT documented as of this encounter Care Teams Record Retrieval Specialist Relationship Specialty Start Date End Date Chelsea Patel NP [address] [place] [phone] PCP - General Family Medicine 08/29/23 documented as of this encounter
--- OUTSIDE RECORDS SUMMARY | 2025-01-11 08:40 | XMS_ITS | Encounter Summary ---
Author Organization [employer] Address [address] [facility] 7t [place] [address] Care Team Providers Care Home Health Care Social Worker Name Role Phone Chelsea Patel LEAN SENSEI Primary Care Provider [phone] Encounter Details Date Type Department Care Team ([facility] st Contact Info) Description 01/07/2025 Population Health Risk Score [facility] (C3) Department [address] [facility] 7 [place] [address] Provider, Population Health Generic Social History Tobacco Use Types Packs/Day Years [...] Description 04/08/2025 10:15 AM EDT Office Visit [facility] [address] [place] [address] Chelsea Patel NP [address] [place] [address] documented as of this encounter Visit Diagnoses Not on filedocumented in this encounter Additional Health Concerns Assessment Noted Time PHQ-9 Depression Total Score: 0 12/12/19 24 2:12 PM EST documented as of this encounter Care Teams Home Health Care Social Worker Relationship Specialty Start Date End Date Chelsea Patel NP [address] [place] [address] PCP - General Family Medicine 08/29/23 documented as of this encounter
--- OUTSIDE RECORDS SUMMARY | 2025-01-11 08:40 | XMS_ITS | Encounter Summary ---
Author Organization [employer] Address [address] [facility] 7t [place] [address] Care Team Providers Care Phys Asst Name Role Phone Chelsea Patel TRAVEL INFORMATION CENTER SUPERVISOR Primary Care Provider [phone] Reason for Visit * Reason Onset Date Comments Med Refill 06/11/2024 Encounter Details Date Type Department Care Team ([facility] st Contact Info) Description 06/11/2024 Refill [facility] [address] [place] [address] Chelsea Patel NP [address] [place] [address] Anemia, unspecified type Social History Tobacco Use [...] Description 04/08/2025 10:15 AM EDT Office Visit [facility] [address] [place] [address] Chelsea Patel NP [address] [place] [address] documented as of this encounter Visit Diagnoses Diagnosis Anemia, unspecified type documented in this encounter Additional Health Concerns Assessment Noted Time PHQ-9 Depression Total Score: 0 12/12/19 24 2:12 PM EST documented as of this encounter Care Teams Phys Asst Relationship Specialty Start Date End Date Chelsea Patel NP [address] [place] [address] PCP - General Family Medicine 08/29/23 documented as of this encounter
--- OUTSIDE RECORDS SUMMARY | 2025-01-11 08:40 | XMS_ITS | Encounter Summary ---
Author Organization [employer] Address [address] [facility] 7t [place] [address] Care Team Providers Care Snow Shoveler Name Role Phone Chelsea Patel SLACK COOPER Primary Care Provider [phone] Reason for Visit * Reason Onset Date Comments Medication Question 01/05/2024 Encounter Details Date Type Department Care Team ([facility] st Contact Info) Description 01/05/2024 Telephone [facility] [address] [place] [address] Chelsea Patel NP [address] [place] [address] Medication Question Social History Tobacco Use Types [...] t he electric, gas, oil or water [employer] threatened to shut off services in your [...] with a nurse. Please contact pt at [phone] * Telephone Encounter - Guillermo Harding RN [...] Description 04/08/2025 10:15 AM EDT Office Visit [facility] [address] [place] [address] Chelsea Patel NP [address] [place] [address] documented as of this encounter Visit Diagnoses Not on filedocumented in this encounter Additional Health Concerns Assessment Noted Time PHQ-9 Depression Total Score: 0 12/12/19 24 2:12 PM EST documented as of this encounter Care Teams Snow Shoveler Relationship Specialty Start Date End Date Chelsea Patel NP [address] [place] [address] PCP - General Family Medicine 08/29/23 documented as of this encounter
--- OUTSIDE RECORDS SUMMARY | 2025-01-11 08:40 | XMS_ITS | Encounter Summary ---
Author Organization [employer] Address [address] [facility] 7t [place] [address] Care Team Providers Care Heart Coordinator Name Role Phone Chelsea Patel PROCESS VALIDATION ENGINEER Primary Care Provider [phone] Reason for Visit * Reason Comments Med Refill Encounter Details Date Type Department Care Team ([facility] st Contact Info) Description 01/26/2024 Refill [facility] [address] [place] [address] Chelsea Patel NP [address] [place] [address] Hypothyroidism, unspecified type Social History Tobacco Use [...] Description 04/08/2025 10:15 AM EDT Office Visit [facility] [address] [place] [address] Chelsea Patel NP [address] [place] [address] documented as of this encounter Visit Diagnoses Diagnosis Hypothyroidism, unspecified type documented in this encounter Additional Health Concerns Assessment Noted Time PHQ-9 Depression Total Score: 0 12/12/19 24 2:12 PM EST documented as of this encounter Care Teams Heart Coordinator Relationship Specialty Start Date End Date Chelsea Patel NP [address] [place] [address] PCP - General Family Medicine 08/29/23 documented as of this encounter
--- OUTSIDE RECORDS SUMMARY | 2025-01-11 08:40 | XMS_ITS | Encounter Summary ---
Author Organization [facility] Address [address] [place] [address] Phone Care Team Providers Care Leak Gang Supervisor Name Role Phone Unavailable Primary Care Provider Unavailabl e Encounter Details Date Type Department Care Team (Late st Contact Info) Description 06/11/2011 Documentation [facility] [address] [place] [address] Family Medicine, Physician [address] [place], [place] [phone] Social History Tobacco Use Types Packs/Day Years [...]
--- OUTSIDE RECORDS SUMMARY | 2025-01-11 08:40 | XMS_ITS | Encounter Summary ---
Author Organization [employer] Address [address] [facility] 7t [place] [address] Care Team Providers Care Bulb Inspector Name Role Phone Chelsea Patel ASSEMBLY SUPERVISOR Primary Care Provider [phone] Encounter Details Date Type Department Care Team (Late st Contact Info) Description 11/07/2023 Orders Only [facility] [address] [place], [place] [phone] Salomón Luong MD [address] [place] [address] Other specified hypothyroidism (Primary Dx) Social History [...] Description 04/08/2025 10:15 AM EDT Office Visit [facility] [address] [place], [place] [phone] Chelsea Patel NP [address] [place], [place] [phone] Scheduled Orders Name Type Priority Associated Diagnoses [...] Calcium, Ionized 5.0 4.7 - 5.5 mg/dL [facility] Comment:THIS TEST WAS PERFOR MED AT:[facility] [address] [phone] FRANKS MD 11/07/2023 11:0 2 AM EST 11/07/2023 11:46 AM EST us Generic External Data Provider LAB BLOOD ORDERAB LES Final Result [facility] [address] [place] [phone] documented in this encounter Visit Diagnoses Diagnosis Other specified hypothyroidism- Primary documented in this encounter Additional Health Concerns Assessment Noted Time PHQ-9 Depression Total Score: 0 08/29/20 10:27 AM EDT documented as of this encounter Care Teams Bulb Inspector Relationship Specialty Start Date End Date Chelsea Patel NP [address] [place] [address] PCP - General Family Medicine 08/29/23 documented as of this encounter
--- OUTSIDE RECORDS SUMMARY | 2025-01-11 08:40 | XMS_ITS | Encounter Summary ---
Author Organization [facility] Address [address] [place] [phone] Phone Care Team Providers Care Scientific Software Engineer Name Role Phone Unavailable Primary Care Provider Unavailabl e Encounter Details Date Type Department Care Team (Late st Contact Info) Description 06/12/2017 Conversion Encounter [facility] - [address] [phone] Social History Tobacco Use Types Packs/Day Years [...]
[2025-01-11 11:56] LABS: TSH reflex Free T4 4.85 uIU/mL (0.32-4.0)
[2025-01-11 12:37] LABS: Free T4 (Free Thyroxine) 1.07 ng/dL (0.71-1.85)
== END 2025-01-11 08:27 | disposition home or self-care (01) ==
LOC: HO.HHCL 08:26
PROVIDERS: Visit Provider Nurse Practitioner
DX: E06.3 Autoimmune thyroiditis (principal)
CPT/HCPCS: 36415; 84439; 84443

== ENCOUNTER 2025-03-09 10:46 | Outpatient (AMB) | payer MEDICAID, SELFPAY ==
--- NOTE | 2025-03-09 10:49 | MHC.OFFVIS ---
Vital Signs 03/09/25 10:54 Height 5 ft 1 in Weight 108 lb BMI 20.4 Handedness Right Intake Visit Reasons: New Pt - right pinky sprain, DOI 07/31/24 Intake Note: Arturo is a 29 year old right hand dominant female who presents today as a new patient for a evaluation of her right pinky sprain, DOI 06/2024. Patient reports she hyperextend her finger with she was opening her bathroom door. Patient is unable to bend her finger/making a fist. She states having numbness in her pinky finger since June and she notices at night her pinky finger g Allergies loratadine [From CLARITIN] Allergy (Intermediate, Verified 03/09/25 10:53) RASH almond Allergy (Unknown, Verified 03/09/25 10:53) SWELLING corn [CORN] Allergy (Unknown, Verified 03/09/25 10:53) SWELLING hazelnut Allergy (Unknown, Verified 03/09/25 10:53) SWELLING latex [LATEX] Allergy (Unknown, Verified 03/09/25 10:53) RASH PFSH Medical History Migraines Surgical History Hx of tonsillectomy Social History (Updated 03/09/25 @ 10:54 by Hakeem Moreno) Alcohol intake: never Patient Tobacco Use Status: Never used Tobacco Current occupational status: employed Current occupation: [employer]/ right hand dominant Physical Exam Vital Signs: BMI result Body Mass Index 20.4 Assessment & Plan Assessment & Plan (1) Finger sprain: Code(s): S63.619A - Unspecified sprain of unspecified finger, initial encounter Category: Medical Plan History of Present Illness The patient is a 29-year-old female presenting with difficulty bending the right fifth finger and an inability to make a complete fist following a traumatic injury. In June, she suffered a traumatic incident wherein her pinky was forcefully pushed backward by a wooden door, provoking immediate intense pain. An emergency evaluation ruled out fractures with an X-ray, but she was provided a splint for immobilization. Despite these measures, she noticed ongoing stiffness and impaired movement without pursuing the advised physical therapy due to lack of formal follow-up instructions. Now, almost a year subsequent to the injury, the patient describes the persistence of stiffness, particularly an inability to flex at certain joints in the pinky, and experiences significant discomfort upon attempts to maneuver the joint. She reports difficulty making a fist and altered digit alignment, with attempts to self-exercise, and feels that her small finger now blocks the ring finger when attempting to make a closed fist. Review of Systems - Musculoskeletal: Reports stiffness and inability to bend the fifth finger; denies prior successful therapeutic interventions. Systems reviewed and are negative except as per HPI and below Physical Exam - Musculoskeletal- Stiffness in the fifth finger noted. Limited range of motion observed, especially at the proximal interphalangeal joint. Notable discomfort reported upon attempted flexion. With significant discomfort, patient is able to be passively fully flexed to a closed fist with the right small finger, and is able to hold this position somewhat well actively. no numbness or tingling of the right hand Results - Imaging: Normal X-ray findings of the fifth finger in July, no fractures indicated. Procedure Plan Occupational therapy evaluation and treatment is necessary to manage the stiffness and limitation in the fifth finger. This condition is seemingly the result of prolonged immobilization following trauma. Despite normal imaging excluding fractures, there is clear soft tissue rigidity necessitating structured therapeutic interventions to promote joint flexibility and functional confucianism. Patient was informed and verbally consented to the use of an ambient scribe for clinic note documentation during this visit. Discussion Notes I discussed with the patient the primary assumption that the prolonged splint usage without subsequent therapy has resulted in significant stiffness in the fifth finger. I emphasized that there were no fractures and that her X-rays returned normal findings. The proposed treatment includes initiating a course of occupational therapy, focusing especially on techniques that could improve mobility and functional use of the hand. Recommendations were provided to schedule an evaluation with an occupational therapist to commence immediately for optimal outcomes. I will follow up after the therapy initiation and adjust any further interventions as necessary. The patient understands the information and is agreeable to this plan. Patient Instructions - Contact the occupational therapy clinic to set up an appointment for evaluation and treatment. - Begin occupational therapy exercises as soon as possible to aid in reducing stiffness and improving range of motion. - Follow-up with Dr. Wray in 2-3 weeks for issues with potential rotational deformity of the right small finger, sooner with any acute concerns Orders: Orders OT Evaluation and Treatment Today S63.619A - Unspecified sprain of unspecified finger, initial encounter Coding Level of Care Code New Pt Level 3 (23996) Diagnoses Finger sprain S63.615C
[2025-03-09 10:54] VITALS: BMI 20.4
--- OUTSIDE RECORDS SUMMARY | 2025-03-09 11:49 | XMS_ITS | Encounter Summary ---
Author Organization [employer] Address [address] [place] [address] Care Team Providers Care Ticket Broker Name Role Phone Chelsea Patel FEATHER CURLING MACHINE OPERATOR Primary Care Provider [phone] Reason for Visit * Reason Onset Date Comments Medication Question 01/05/2024 Encounter Details Date Type Department Care Team ([facility] st Contact Info) Description 01/05/2024 Telephone [facility] MEDICINE [address] [place] [address] Chelsea Patel NP [address] [place] [address] Medication Question Social History Tobacco Use Types [...] t he electric, gas, oil or water [employer] threatened to shut off services in your [...] with a nurse. Please contact pt at [phone] * Telephone Encounter - Guillermo Harding RN [...] Upcoming Encounters Date Type Department Care Team ([facility] st Contact Info) Description 04/08/2025 10:15 AM EDT Office Visit [facility] MEDICINE [address] [place] [address] Chelsea Patel NP [address] [place] [address] documented as of this encounter Visit Diagnoses Not on filedocumented in this encounter Additional Health Concerns Assessment Noted Time PHQ-9 Depression Total Score: 0 12/12/19 24 2:12 PM EST documented as of this encounter Care Teams Ticket Broker Relationship Specialty Start Date End Date Chelsea Patel NP [address] [place] [address] PCP - General Family Medicine 08/29/23 documented as of this encounter
--- OUTSIDE RECORDS SUMMARY | 2025-03-09 11:49 | XMS_ITS | Encounter Summary ---
Author Organization [facility] Address [address] [place] [address] Phone Care Team Providers Care Storage Facility Housekeeper Name Role Phone Unavailable Primary Care Provider Unavailabl e Encounter Details Date Type Department Care Team (Late st Contact Info) Description 06/11/2011 Documentation EM Family Medicine [address] [place] [address] Family Medicine, Physician [address] [place], [place] [id number] Social History Tobacco Use Types Packs/Day Years [...]
--- OUTSIDE RECORDS SUMMARY | 2025-03-09 11:49 | XMS_ITS | Encounter Summary ---
Author Organization [facility] Address [address] [place] [address] Phone Care Team Providers Care Advertising Coordinator Name Role Phone Unavailable Primary Care Provider Unavailabl e Encounter Details Date Type Department Care Team (Late st Contact Info) Description 06/12/2017 Conversion Encounter [facility] - [address] [phone] Social History Tobacco Use Types Packs/Day Years [...]
--- OUTSIDE RECORDS SUMMARY | 2025-03-09 11:49 | XMS_ITS | Encounter Summary ---
Author Organization [employer] Address [address] [place] [address] Care Team Providers Care Ruching Machine Operator Name Role Phone Chelsea Patel NP Primary Care Provider [phone] Encounter Details Date Type Department Care Team (Late st Contact Info) Description 10/15/2023 Orders Only [facility] MEDICINE [address] [place] [address] Chelsea Patel NP [address] [place] [address] Parathyroid adenoma (Primary Dx) Social History Tobacco [...] Description 04/08/2025 10:15 AM EDT Office Visit [facility] MEDICINE [address] [place] [address] Chelsea Patel NP [address] [place] [address] Scheduled Orders Name Type Priority Associated Diagnoses [...] documented as of this encounter Care Teams Ruching Machine Operator Relationship Specialty Start Date End Date Chelsea Patel NP [address] [place] [address] PCP - General Family Medicine 08/29/23 documented as of this encounter
--- OUTSIDE RECORDS SUMMARY | 2025-03-09 11:49 | XMS_ITS | Encounter Summary ---
Author Organization [employer] Address [address] [place] [address] Care Team Providers Care Hand Coke Drawer Name Role Phone Chelsea Patel CARTON FORMING MACHINE OPERATOR Primary Care Provider [phone] Reason for Visit * Reason Comments Med Refill Encounter Details Date Type Department Care Team ([facility] st Contact Info) Description 01/26/2024 Refill [facility] MEDICINE [address] [place] [address] Chelsea Patel NP [address] [place] [address] Hypothyroidism, unspecified type Social History Tobacco Use [...] Description 04/08/2025 10:15 AM EDT Office Visit [facility] MEDICINE [address] [place] [address] Chelsea Patel NP [address] [place] [address] documented as of this encounter Visit Diagnoses Diagnosis Hypothyroidism, unspecified type documented in this encounter Additional Health Concerns Assessment Noted Time PHQ-9 Depression Total Score: 0 12/12/19 24 2:12 PM EST documented as of this encounter Care Teams Hand Coke Drawer Relationship Specialty Start Date End Date Chelsea Patel NP [address] [place] [address] PCP - General Family Medicine 08/29/23 documented as of this encounter
--- OUTSIDE RECORDS SUMMARY | 2025-03-09 11:49 | XMS_ITS | Encounter Summary ---
Author Organization [facility] Address [address] [place] [address] Phone Care Team Providers Care Licensing Officer Name Role Phone Unavailable Primary Care Provider Unavailabl e Encounter Details Date Type Department Care Team (Late st Contact Info) Description 07/25/2011 Documentation EM Family Medicine [address] [place] [address] Family Medicine, Physician [address] [place], [place] [phone] Social History Tobacco Use Types Packs/Day Years [...]
--- OUTSIDE RECORDS SUMMARY | 2025-03-09 11:49 | XMS_ITS | Encounter Summary ---
Author Organization [facility] Address [address] [place] [address] Phone Care Team Providers Care Linting Machine Operator Name Role Phone Unavailable Primary Care Provider Unavailabl e Encounter Details Date Type Department Care Team (Late st Contact Info) Description 06/11/2011 Documentation EM Family Medicine [address] [place] [address] Family Medicine, Physician [address] [place], [place] [phone] Social History Tobacco Use Types Packs/Day Years [...]
--- OUTSIDE RECORDS SUMMARY | 2025-03-09 11:49 | XMS_ITS | Encounter Summary ---
Author Organization [employer] Address [address] [place] [address] Care Team Providers Care Head Silverman Name Role Phone Chelsea Patel MARKETING COMMUNICATION MANAGER Primary Care Provider [phone] Encounter Details Date Type Department Care Team (Late st Contact Info) Description 02/04/2025 Orders Only [facility] [address] [place] [address] Provider, MD Ceci Social History Tobacco Use Types Packs/Day Years [...] Description 04/08/2025 10:15 AM EDT Office Visit [facility] MEDICINE [address] [place] [address] Chelsea Patel NP [address] [place] [address] documented as of this encounter Procedures Procedure Name Priority Date/Time Associated Diagnosis Comments PAP/HPV Routine 12/03/2021 11:37 AM EST documented in this encounter Results * PAP/HPV (12/03/2021 11:37 AM EST) Pap Smear 1. NILM 1. NILM HPV Not Detected Undetected, Indeterminat e, Quantitative , Not Detected us Historical Provider HEALTH MAINTENANCE Edited Result - Final documented in this encounter Visit Diagnoses Not on filedocumented in this encounter Additional Health Concerns Assessment Noted Time PHQ-9 Depression Total Score: 0 12/12/19 24 2:12 PM EST documented as of this encounter Care Teams Head Silverman Relationship Specialty Start Date End Date Chelsea Patel NP [address] [place] [address] PCP - General Family Medicine 08/29/23 documented as of this encounter
--- OUTSIDE RECORDS SUMMARY | 2025-03-09 11:49 | XMS_ITS | Encounter Summary ---
Author Organization [facility] Address [address] [place] [address] Phone Care Team Providers Care Sat Math Tutor Name Role Phone Unavailable Primary Care Provider Unavailabl e Encounter Details Date Type Department Care Team (Late st Contact Info) Description 06/11/2011 Documentation EM Family Medicine [address] [place] [address] Family Medicine, Physician [address] [place], [place] [phone] Social History Tobacco Use Types Packs/Day Years [...]
--- OUTSIDE RECORDS SUMMARY | 2025-03-09 11:49 | XMS_ITS | Clinical Summary ---
Author Organization [facility] Address [address] [place] [address] Phone Care Team Providers Care Computational Theory Scientist Name Role Phone Unavailable Primary Care Provider [...]
--- OUTSIDE RECORDS SUMMARY | 2025-03-09 11:49 | XMS_ITS | Encounter Summary ---
Author Organization [employer] Address [address] 7[address] [place] [address] Care Team Providers Care Rope Tow Operator Name Role Phone Chelsea Patel REMOTELY OPERATED VEHICLE Primary Care Provider [phone] Reason for Visit * Reason Onset Date Comments Medication Question 01/27/2024 Encounter Details Date Type Department Care Team ([facility] st Contact Info) Description 01/27/2024 Telephone [facility] MEDICINE [address] [place] [address] Chelsea Patel NP [address] [place] [address] Medication Question Social History Tobacco Use Types [...] t he electric, gas, oil or water [employer] threatened to shut off services in your [...] antibiotics before biopsy. Please contact pt at [phone]. documented in this encounter Plan of Treatment Upcoming Encounters Date Type Department Care Team (Late st Contact Info) Description 04/08/2025 10:15 AM EDT Office Visit [facility] MEDICINE [address] [place] [address] Chelsea Patel NP [address] [place] [address] documented as of this encounter Visit Diagnoses Not on filedocumented in this encounter Additional Health Concerns Assessment Noted Time PHQ-9 Depression Total Score: 0 12/12/19 24 2:12 PM EST documented as of this encounter Care Teams Rope Tow Operator Relationship Specialty Start Date End Date Chelsea Patel NP [address] [place] [address] PCP - General Family Medicine 08/29/23 documented as of this encounter
--- OUTSIDE RECORDS SUMMARY | 2025-03-09 11:50 | XMS_ITS | Encounter Summary ---
Author Organization [employer] Address [address] [place] [address] Care Team Providers Care Electronics Parts Sales Representative Name Role Phone Chelsea Patel PLASTIC INSTALLER Primary Care Provider [phone] Reason for Visit * Reason Onset Date Comments Call Back Request 12/16/2023 Encounter Details Date Type Department Care Team ([facility] st Contact Info) Description 12/16/2023 Telephone [facility] MEDICINE [address] [place] [address] Chelsea Patel NP [address] [place] [address] Call Back Request Social History Tobacco Use [...] a month ago. Please contact pt at [phone] documented in this encounter Plan of Treatment Upcoming Encounters Date Type Department Care Team (Late st Contact Info) Description 04/08/2025 10:15 AM EDT Office Visit [facility] MEDICINE [address] [place] [address] Chelsea Patel NP [address] [place] [address] documented as of this encounter Visit Diagnoses Not on filedocumented in this encounter Additional Health Concerns Assessment Noted Time PHQ-9 Depression Total Score: 0 12/12/19 24 2:12 PM EST documented as of this encounter Care Teams Electronics Parts Sales Representative Relationship Specialty Start Date End Date Chelsea Patel NP [address] [place] [address] PCP - General Family Medicine 08/29/23 documented as of this encounter
--- OUTSIDE RECORDS SUMMARY | 2025-03-09 11:50 | XMS_ITS | Encounter Summary ---
Author Organization [employer] Address [address] [place] [address] Care Team Providers Care Energy Conservation Specialist Name Role Phone Chelsea Patel MANAGER RESOURCE Primary Care Provider [phone] Reason for Visit * Reason Onset Date Comments Nurse Triage 11/19/2023 Encounter Details Date Type Department Care Team ([facility] st Contact Info) Description 11/19/[address] [facility] MEDICINE [address] [place] [address] Chelsea Patel NP [address] [place] [address] Nurse Triage Social History Tobacco Use Types [...] t he electric, gas, oil or water [employer] threatened to shut off services in your [...] recently increased. Pt does have apt with MANAGER RESOURCE [employer] 12/12/23. Insurance is verified as active [...] , pt. Verbally agreed to come to [facility] for further evaluation. If having palpitations, she should come to the office for a SDC visit or at the [facility] to get an EKG and repeat Blood tests TSH and Electrolytes SABIHA. She should continue With the medication for now. * Telephone Encounter - Salomón Luong MD - 11/19/2023 9:55 AM EST If having palpitations, she should come to the office for a SDC visit or at the [facility] to get an EKG and [...] vomiting or diarrhea. Pt scheduled to see [facility] Endo on 01/30/24, and barium swallow test on 12/10/23 at [facility]. Pt advised of disposition, prefers to have [...] accepted this outcome Please contact pt at [phone] documented in this encounter Plan of Treatment Upcoming Encounters Date Type Department Care Team (Late st Contact Info) Description 04/08/2025 10:15 AM EDT Office Visit [facility] MEDICINE [address] [place], [place] [phone] Chelsea Patel NP [address] [place], [place] [phone] documented as of this encounter Visit Diagnoses Not on filedocumented in this encounter Additional Health Concerns Assessment Noted Time PHQ-9 Depression Total Score: 0 08/29/20 23 10:27 AM EDT documented as of this encounter Care Teams Energy Conservation Specialist Relationship Specialty Start Date End Date Chelsea Patel NP [address] [place] [address] PCP - General Family Medicine 08/29/23 documented as of this encounter
--- OUTSIDE RECORDS SUMMARY | 2025-03-09 11:50 | XMS_ITS | Encounter Summary ---
Author Organization [employer] Address [address] [place] [address] Care Team Providers Care Working Manager Name Role Phone Chelsea Patel INSURANCE CLAIMS CLERK Primary Care Provider [phone] Reason for Visit * Reason Onset Date Comments New Med Request 12/22/2023 Encounter Details Date Type Department Care Team ([facility] st Contact Info) Description 12/22/2023 Telephone [facility] MEDICINE [address] [place] [address] Chelsea Patel NP [address] [place] [address] New Med Request Social History Tobacco Use [...] Description 04/08/2025 10:15 AM EDT Office Visit [facility] MEDICINE [address] [place] [address] Chelsea Patel NP [address] [place] [address] documented as of this encounter Visit Diagnoses Not on filedocumented in this encounter Additional Health Concerns Assessment Noted Time PHQ-9 Depression Total Score: 0 12/12/19 24 2:12 PM EST documented as of this encounter Care Teams Working Manager Relationship Specialty Start Date End Date Chelsea Patel NP [address] [place] [address] PCP - General Family Medicine 08/29/23 documented as of this encounter
--- OUTSIDE RECORDS SUMMARY | 2025-03-09 11:50 | XMS_ITS | Encounter Summary ---
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) [...] t he electric, gas, oil or water [employer] threatened to shut off services in your [...] Description 04/08/2025 10:15 AM EDT Office Visit [facility] MEDICINE [address] [place] [address] Chelsea Patel NP [address] [place] [address] documented as of this encounter Procedures Procedure Name Priority Date/Time Associated Diagnosis Comments TSH W/REFLEX TO FT4 Routine 01/11/2025 8 :27 AM EDT 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 documented in this encounter Results * (ABNORMAL) TSH W/Reflex to FT4 (01/11/2025 8:27 AM EDT) TSH reflex Free T4 4.85(H) 0.32 - 4.0 uIU/mL [facility] Blood Venous blood specimen / Unknown 01/11/2025 8:27 AM EDT 01/11/2025 11:09 AM EDT us Chelsea Patel NP LAB BLOOD ORDERABLES Final Resu lt [facility] [address] [place] [address] [phone] documented in this encounter Visit Diagnoses Diagnosis 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- Primary documented in this encounter Additional Health Concerns Assessment Noted Time PHQ-9 Depression Total Score: 0 12/12/19 24 2:12 PM EST documented as of this encounter Care Teams Press Setup Operator Relationship Specialty Start Date End Date Chelsea Patel NP [address] [place] [address] PCP - General Family Medicine 08/29/23 documented as of this encounter
--- OUTSIDE RECORDS SUMMARY | 2025-03-09 11:50 | XMS_ITS | Encounter Summary ---
Author Organization [employer] Address [address] [place] [address] Care Team Providers Care Mental Health Nurse Practitioner Name Role Phone Chelsea Patel SILVICULTURE PROFESSOR Primary Care Provider [phone] Reason for Visit * Reason Onset Date Comments Med Refill 06/11/2024 Encounter Details Date Type Department Care Team ([facility] st Contact Info) Description 06/11/2024 Refill [facility] MEDICINE [address] [place] [address] Chelsea Patel NP [address] [place] [address] Anemia, unspecified type Social History Tobacco Use [...] Description 04/08/2025 10:15 AM EDT Office Visit [facility] MEDICINE [address] [place] [address] Chelsea Patel NP [address] [place] [address] documented as of this encounter Visit Diagnoses Diagnosis Anemia, unspecified type documented in this encounter Additional Health Concerns Assessment Noted Time PHQ-9 Depression Total Score: 0 12/12/19 24 2:12 PM EST documented as of this encounter Care Teams Mental Health Nurse Practitioner Relationship Specialty Start Date End Date Chelsea Patel NP [address] [place] [address] PCP - General Family Medicine 08/29/23 documented as of this encounter
--- OUTSIDE RECORDS SUMMARY | 2025-03-09 11:50 | XMS_ITS | Encounter Summary ---
Author Organization [employer] Address [address] [facility] 7[address] [place] [address] Care Team Providers Care Sustainable Design Coordinator Name Role Phone Chelsea Patel PIPE ORGAN MECHANIC Primary Care Provider [phone] Encounter Details Date Type Department Care Team ([facility] st Contact Info) Description 11/07/2023 Orders Only [facility] [address] [place], [place] [phone] Salomón Luong MD [address] [place], [place] [phone] Other specified hypothyroidism (Primary Dx) Social History [...] Description 04/08/2025 10:15 AM EDT Office Visit [facility] [address] [place], [place] [phone] Chelsea Patel NP [address] [place], [place] [phone] Scheduled Orders Name Type Priority Associated Diagnoses [...] Calcium, Ionized 5.0 4.7 - 5.5 mg/dL [facility] Comment:THIS TEST WAS PERFOR MED AT:[facility] [id number] [place] [phone] FRANKS MD 11/07/2023 11:0 2 AM EST 11/07/2023 11:46 AM EST us Generic External Data Provider LAB BLOOD ORDERAB LES Final Result [facility] [address] [place] [address] [phone] documented in this encounter Visit Diagnoses Diagnosis Other specified hypothyroidism- Primary documented in this encounter Additional Health Concerns Assessment Noted Time PHQ-9 Depression Total Score: 0 08/29/20 10:27 AM EDT documented as of this encounter Care Teams Sustainable Design Coordinator Relationship Specialty Start Date End Date Chelsea Patel NP [address] [place] [phone] PCP - General Family Medicine 08/29/23 documented as of this encounter
--- OUTSIDE RECORDS SUMMARY | 2025-03-09 11:50 | XMS_ITS | Clinical Summary ---
Author Organization [employer] Address [address] [facility] 7[address] [place] [address] Care Team Providers Care Construction Crew Member Name Role Phone Chelsea Patel OCTAVIO Primary Care Provider [phone] Allergies No known active allergies Medications * This document contains information received from the source organization and may not represent a complete record from that organization. senna-docusate (Senokot S) 8.6-50 MG tablet Take 2 tablets by mouth at bed time. 06/07/20 22 Active ferrous gluconate (Fergon) 324 (38 Fe) MG [...] 14 days. Take with bismuth, tetracycline, and metronidazole . Do not open capsule. 28 capsule 01/05/20 24 Active ferrous sulfate 325 (65 Fe) MG tablet take 1 tablet by oral route every other day for iron deficiency anemia 06/07/20 22 Active Diclofenac Sodium 1 % gelIndications: Skin nodule Apply pea size amount to the rib area three times daily as needed 2 g 09/08/20 24 Active ciclopirox (Penlac) 8 % solutionIndicat ions:Onychomyco sis Apply topically at bedtime. 6 mL 1 12/10/19 25 Active levothyroxine (Synthroid) 88 MCG tabletIndicatio ns:Hypothyroidi sm due to Troy thyroiditis Take 1 tablet (88 mcg) by mouth at bedtime. Take med 60 mins apart from last meal 30 tablet 2 01/15/20 25 025 Active hydrocortisone (Anusol-HC) 2.5 % rectal creamIndication s:Hemorrhoids, unspecified hemorrhoid type Insert into the rectum 2 times daily. 28 g 1 09/24/20 23 025 Discontinued(M ed list cleanup (will not trigger notification to Pharmacy)) senna (Senokot) 8.6 MG tabletIndicatio ns:Constipation , unspecified constipation type Take 1 tablet (8.6 mg) by mouth at bedtime. 120 tablet 09/24/20 025 Discontinued(M ed list cleanup (will not trigger notification to Pharmacy)) Active [...] accordingly -has appointment on January 29 with [facility] endo for thyroid and lymph biopsy -will [...] referral previously placed. Patient encouraged to call [facility] hx of thyroid cancer -will call with [...] Encounters Date Type Department Care Team Description 02/04/2025 Orders Only [facility] PEDS [address] [place] [address] Provider, MD Ceci 01/21/2025 Telephone [facility] [address] [place] [phone] Chelsea Patel NP 01/11/2025 Orders Only [facility] [address] [place] [address] Chelsea Patel NP 01/10/2025 Orders Only [facility] [address] [place] [address] Chelsea Patel NP 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) 01/07/2025 Population Health Risk Score [facility] Department [address] [phone] Provider, Population Health Generic 01/04/2025 Telephone [facility] [address] [place] [phone] Chelsea Patel NP 12/10/2024 10:15 AM EST Office Visit [facility] [address] [place] [address] Chelsea Patel NP Hot flashes (Primary Dx); Onychomycosis; Finger injury, right, initial encounter 12/10/2024 Travel from Last 3 Months Immunizations Immunization Administration Dates Next Due DTaP, 5 pertussis antigens 03/02/1998,,1993,11/26,1993 HPV, Bivalent 07/11/2008,08/27/2007 HPV, Quadrivalent 07/27/2012,07/11/2008,08/27/20 07 Hep B, Adolescent or Pediatric 07/26/1994,1993,1993 Hep B, adult 06/11/2024 Hib (HbOC) 01/13/1995, 4,1993,07/26 IPV 01/13/1995, 4,1993,07/26 Influenza, Split (incl. [place] f[place] surface antigen) 06/10/2011 MMR 03/02/1998,05/26/1994 Meningococcal MCV4P ACYW-135 01/23/2006 OPV, Trivalent 03/02/1998 TD (adult), 2 Lf tetanus tox [...] Description 04/08/2025 10:15 AM EDT Office Visit [facility] [address] [place] [address] Chelsea Patel NP [address] [place] [address] Health Maintenance Due Date Last Done Comments Family Planning (PISQ) 2008 COVID-19 Vaccine ( season) 2024 Influenza Vaccine (#1) 2024 06/10/2011 Depression Screening 12/12/2024 12/12/2023, 12/12/19 Alcohol/Substance Use Screening 09/08/2025 09/08/2024 SDOH Screening 09/08/2025 09/08/2024 Tobacco Screening 09/08/2025 09/08/2024 DTaP/Tdap/Td Vaccines (7 - Td or Tdap) 11/29/2025 11/29/2015, 01/10/2005, 03/02/1998, Additional history exists Cervical Cancer Screening 12/03/2026 HPV/Cotest 12/03/2026 12/03/2021, 12/03/2021 Pap Smear 12/03/2026 12/03/2021, 12/03/2021 Zoster Vaccines (1 of 2) 2043 [...] Date/Time Associated Diagnosis Comments T4, FREE Routine 01/11/2025 8:27 AM EDT TSH W/REFLEX TO FT4 Routine 01/11/2025 8 :27 AM EDT 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 HEPATITIS C AB W/REFL TO HCV RNA, [...] Free T4 4.85(H) 0.32 - 4.0 uIU/mL [facility] Blood Venous blood specimen / Unknown 01/11/2025 8:27 AM EDT 01/11/2025 11:09 AM EDT [facility] LINE ORDERING CLINICIAN LAB BLOOD ORDERABLES Final Resu lt Performing Organization Address City/[facility]/ZIP Co de Phone Number [facility] [address] [place] [address] [phone] * T4, Free (01/11/2025 8:27 AM EDT) Pathologist [facility] Free T4 (Free Thyroxine) 1.07 0.71 - 1.85 ng/dL [facility] 01/11/2025 8:27 AM EDT 01/11/2025 11:09 AM EDT [facility] LINE ORDERING CLINICIAN LAB BLOOD ORDERABLES Final Resu lt Performing Organization Address City/[facility]/ZIP Co de Phone Number [facility] [address] [place] [phone] * Hepatitis C Antibody with Reflex to HCV, RNA, Quantitative, Real-Time PCR (12/12/2023 3:38 PM EST) Hepatitis C Antibody Nonreactive Nonreactive [facility] Comment:Antibodies to HCV no t detected; does not exclude early acuteHCV infection. Blood Venous blood specimen / Unknown 12/12/2023 3:38 PM EST 12/12/2023 4:17 PM EST [facility] LAB BLOOD ORDERABLES Final Resu lt Performing Organization Address City/[facility]/ZIP Co de Phone Number [facility] [address] [place] [phone] [phone] * HIV-1/2 Antigen and Antibodies, Fourth Generation, with Reflexes (12/12/2023 3:38 PM EST) [facility] HIV AB/AG Nonreactive Nonreactive [facility] Comment:HIV-1 p24 Ag and/or HIV-1/HIV-2 Ab not detected.A test result that is nonreactive does not exclude thepossibility of exposure to or infection with HIV-1 and/orHIV-2. Nonreactive results in this assay for individualswith prior exposure to HIV-1 and/or HIV-2 may be due toantigen and antibody levels that are below the limit ofdetection of this assay.The [employer] HIV Ag/Ab Combo assay result andsupplemental assay results should be interpreted inconjunction with the patient's clinical presentation,history and other laboratory results. If the results areinconsistent with clinical evidence, additional testing issuggested to confirm the result. Blood Venous blood specimen / Unknown 12/12/2023 3:38 PM EST 12/12/2023 4:17 PM EST [facility] LINE ORDERING CLINICIAN LAB BLOOD ORDERABLES Final Resu lt Performing Organization Address City/[facility]/ZIP Co de Phone Number [facility] [address] [place] [address] [phone] * HM PAP/HPV (12/03/2021) Pathologist [facility] Pap Negative for intraephithelial lesion or malignancy Negative for intraephithelial lesion or malignancy, Epithelial cell abnormality HPV Not Detected Undetected, Indeterminate, Quantitative, Not Detected us Historical Provider HEALTH MAINTENANCE Final Result from Last 3 Months or Most Recently Relevant to Health Maintenance Insurance [facility] C3 Care Teams Construction Crew Member Relationship Specialty Start Date End Date Chelsea Patel NP [address] [place] [phone] PCP - General Family Medicine 08/29/23
--- OUTSIDE RECORDS SUMMARY | 2025-03-09 11:50 | XMS_ITS | Encounter Summary ---
Author Organization [employer] Address [address] [facility] [address] [place] [address] Care Team Providers Care Gas Maker Name Role Phone Chelsea Patel STEAM DRIER TENDER Primary Care Provider [phone] Reason for Visit * Reason Onset Date Comments Medication Question 12/16/2023 Encounter Details Date Type Department Care Team ([facility] st Contact Info) Description 12/16/2023 Telephone [facility] [address] [place] [address] Chelsea Patel NP [address] [place] [address] Medication Question Social History Tobacco Use Types [...] t he electric, gas, oil or water [employer] threatened to shut off services in your [...] the change * Telephone Encounter - Guillermo Hardign RN - 12/17/2023 12:18 PM EST Please [...] Description 04/08/2025 10:15 AM EDT Office Visit [facility] [address] [place] [phone] Chelsea Patel NP [address] [place] [address] documented as of this encounter Visit Diagnoses Not on filedocumented in this encounter Additional Health Concerns Assessment Noted Time PHQ-9 Depression Total Score: 0 12/12/19 24 2:12 PM EST documented as of this encounter Care Teams Gas Maker Relationship Specialty Start Date End Date Chelsea Patel NP [address] [place] [address] PCP - General Family Medicine 08/29/23 documented as of this encounter
== END 2025-03-09 11:28 | disposition home or self-care (01) ==
LOC: HO.HOS 10:47
PROVIDERS: PCP Nurse Practitioner
DX: S63.619A Unspecified sprain of unspecified finger, initial encounter (principal)
CPT/HCPCS: 99203

== ENCOUNTER → 2025-03-09 10:46 | Outpatient (BNVA) | payer MEDICAID, SELFPAY | PROVIDERS: PCP Nurse Practitioner | DX: S63.616A Unspecified sprain of right little finger, initial encounter (principal); X58.XXXA Exposure to other specified factors, initial encounter; Y93.9 Activity, unspecified; Y92.9 Unspecified place or not applicable; Y99.9 Unspecified external cause status | CPT/HCPCS: 99212 ==

== ENCOUNTER 2025-05-18 09:46 | Outpatient (REF) | payer MEDICAID, SELFPAY ==
[2025-05-18 10:10] LABS: MANUAL DIFF FLAG NO
--- OUTSIDE RECORDS SUMMARY | 2025-05-18 10:25 | XMS_ITS | Encounter Summary ---
Author Organization [employer] Address [address] [facility] [address] [place] [address] Care Team Providers Care Turn Down Worker Name Role Phone Chelsea Patel NP Primary Care Provider [phone] Encounter Details Date Type Department Care Team (Late st Contact Info) Description 10/15/2023 Orders Only [facility] [address] [place] [address] Chelsea Patel NP [address] [place] [address] Parathyroid adenoma (Primary Dx) Social History Tobacco [...] as of this encounter Plan of Treatment Scheduled Orders Name Type Priority Associated Diagnoses [...] documented as of this encounter Care Teams Turn Down Worker Relationship Specialty Start Date End Date Chelsea Patel NP [address] [place] [address] PCP - General Family Medicine 08/29/23 documented as of this encounter
--- OUTSIDE RECORDS SUMMARY | 2025-05-18 10:25 | XMS_ITS | Encounter Summary ---
Author Organization [facility] Address [address] [place] [phone] Phone Care Team Providers Care Drafting Clerk Name Role Phone Unavailable Primary Care Provider Unavailabl e Encounter Details Date Type Department Care Team (Late st Contact Info) Description 06/12/2017 Conversion Encounter [facility] - [address] [phone] Social History Tobacco Use Types Packs/Day Years [...]
[2025-05-18 11:33] LABS: Hematocrit 28.3 % (37.0-47.0); Hemoglobin 8.7 g/dl (12.0-16.0); Imm Gran Abs Auto 0.01 X10*3/uL (0.00-0.03); Imm Gran Pct Auto 0.2 % (0.0-0.4); Lymphocytes Absolute Auto 1.4 X10*3/uL (1.2-4.9); Mean Corpuscular HGB Conc 30.7 g/dl (31.0-35.0); Mean Corpuscular Hemoglobin 20.8 pg (27.0-33.0); Mean Corpuscular Volume 67.5 fL (80.0-98.0); NRBC Abs Auto 0.000 X10*3/uL (0.0-0.012); NRBC Pct Auto 0.0 /100WBC (0.0-0.2); Platelet Count 226 X10*3/uL (160-400); Red Blood Count 4.19 X10*6/uL (4.20-5.50); White Blood Count 4.5 X10*3/uL (4.8-10.8)
[2025-05-18 12:09] LABS: Iron 17 mcg/dL (30-160); Percent Iron Saturation 5 % (15-50); Total Iron Binding Capacity 348 mcg/dL (228-428); Unsaturated Iron Binding 331 ug/dL
[2025-05-19 09:19] LABS: Lyme Abs Screen <0.90 index
== END 2025-05-18 09:47 | disposition home or self-care (01) ==
LOC: HO.LAB 09:46
PROVIDERS: PCP Nurse Practitioner; Visit Provider Nurse Practitioner
DX: E06.3 Autoimmune thyroiditis (principal); M25.59 Pain in other specified joint; D50.8 Other iron deficiency anemias
CPT/HCPCS: 36415; 83540; 84443; 85025; 85652; 86140; 86200; 86431; 86617; 86618

== ENCOUNTER → 2025-06-22 15:20 | Outpatient (BNV) | payer MEDICAID, SELFPAY | PROVIDERS: PCP Nurse Practitioner; Visit Provider Internal Medicine | DX: D64.9 Anemia, unspecified (principal); R42 Dizziness and giddiness; R53.1 Weakness | CPT/HCPCS: 99204 ==

== ENCOUNTER 2025-08-24 12:00 | Outpatient (RCR) | payer MEDICAID, SELFPAY ==
[2025-07-06 14:58] VITALS: BP 110/55; PULSE 79; RESP 16; TEMP 36.6; O2SAT 100
[2025-07-13 14:34] VITALS: BP 103/64; PULSE 80; RESP 16; TEMP 36.7; O2SAT 100
[2025-07-20 13:38] VITALS: BP 94/60; PULSE 80; RESP 16; TEMP 36.9; O2SAT 100
[2025-07-27 13:59] VITALS: BP 103/72; PULSE 69; RESP 16; TEMP 36.6; O2SAT 100
[2025-08-03 12:57] VITALS: BP 106/73; PULSE 72; RESP 16; TEMP 36.9; O2SAT 100
[2025-08-12 15:07] VITALS: BP 112/75; PULSE 84; RESP 16; TEMP 36.7; O2SAT 100
[2025-08-17 12:54] VITALS: BP 98/60; PULSE 85; RESP 16; TEMP 36.9; O2SAT 98
[2025-08-24 12:01] VITALS: BP 107/73; PULSE 76; RESP 18; TEMP 36.6
[2025-08-24 12:32] LABS: Hematocrit 36.9 % (37.0-47.0); Hemoglobin 12.0 g/dl (12.0-16.0); Mean Corpuscular HGB Conc 32.5 g/dl (31.0-35.0); Mean Corpuscular Hemoglobin 25.2 pg (27.0-33.0); Mean Corpuscular Volume 77.5 fL (80.0-98.0); NRBC Abs Auto 0.000 X10*3/uL (0.0-0.012); NRBC Pct Auto 0.0 /100WBC (0.0-0.2); Red Blood Count 4.76 X10*6/uL (4.20-5.50); White Blood Count 4.8 X10*3/uL (4.8-10.8)
[2025-08-24 12:35] LABS: Platelet Count 189 X10*3/uL (160-400)
[2025-08-24 13:01] LABS: Ferritin 272 ng/mL (10-122)
== END 2025-08-24 13:16 | disposition home or self-care (01) ==
LOC: HO.INF 12:00
PROVIDERS: Visit Provider Internal Medicine
DX: D64.9 Anemia, unspecified (principal)
CPT/HCPCS: 36415; 82728; 85027; 96365; 96374; J1756